=== PATIENT | male | born 1945 | race Caucasian/White ===

== ENCOUNTER 2017-09-28 21:24 | Inpatient (IN) | payer MEDICARE, OTHER ==
[~2017-09-28] VITALS: Ht 180.3 cm; Wt 96.2 kg
[2017-09-28] MEDS ORDERED: DEXTROSE 5%/0.45% SOD CHL 1,000 ML IV ONE (21:30)
[2017-09-28 21:48] LABS: BASOPHILS % 0.1 % (0.0-1.0); EOSINOPHILS # (AUTO) 0.1 (0.0-0.4); EOSINOPHILS % 1.2 % (0.0-6.0); LYMPHOCYTES # (AUTO) 0.5 (1.0-3.2); LYMPHOCYTES % 6.3 % (18.0-39.1); MEAN CORPUSCULAR HEMOGLOBIN 26.6 pg (28-32); MEAN CORPUSCULAR HGB CONC 31.5 g/dL (31-35); MEAN CORPUSCULAR VOLUME 84.4 fL (81-99); MONOCYTES # (AUTO) 0.6 (0.2-0.8); MONOCYTES % 7.4 % (4.4-11.3); NEUTROPHILS # (AUTO) 6.4 (2.1-6.9); NEUTROPHILS % 84.2 % (38.7-80.0); PLATELET COUNT 170 x10e3/uL (140-360); RED BLOOD COUNT 2.37 x10e6/uL (4.3-5.7); RED CELL DISTRIBUTION WIDTH 16.5 % (11.7-14.4)
[2017-09-28 21:55] LABS: HEMOGLOBIN 6.3 g/dL (14.0-18.0)
[2017-09-28] MEDS ORDERED: TRAZODONE HCL50 MG PO (22:03)
[2017-09-28] MEDS ORDERED: LANTUS 3ML100 UNITS/ (22:03)
[2017-09-28] MEDS ORDERED: FERROUS GLUCON324 M1 PO (22:03)
[2017-09-28] MEDS ORDERED: FUROSEMIDE40 MG PO (22:03)
[2017-09-28] MEDS ORDERED: SIMVASTATIN20 MG PO (22:03)
[2017-09-28] MEDS ORDERED: MORPHINE SULFAT30 M2 PO (22:03)
[2017-09-28] MEDS ORDERED: OMEPRAZOLE40 MG PO (22:03)
[2017-09-28] MEDS ORDERED: FINASTERIDE5 MG PO (22:03)
[2017-09-28] MEDS ORDERED: ASPIR 8181 MG PO (22:03)
[2017-09-28] MEDS ORDERED: WARFARIN SODIU2.5 MG PO (22:03)
[2017-09-28] MEDS ORDERED: CARVEDILOL12.5 MG PO (22:03)
[2017-09-28] MEDS ORDERED: NOVOLOG100 UNIT/1 (22:03)
[2017-09-28 22:06] LABS: ALBUMIN 1.6 g/dL (3.5-5.0); ALBUMIN/GLOBULIN RATIO 0.4 (0.8-2.0); CALCIUM 7.5 mg/dL (8.4-10.2); CREATININE, SERUM 4.9 mg/dL (0.72-1.25)
[2017-09-28 22:13] LABS: CREATINE KINASE MB 6.2 ng/mL (0.00-5.00); TROPONIN I 0.073 ng/mL (0-0.300)
[2017-09-28] MEDS ORDERED: SODIUM CHLORIDE 0.9% 250ML 250 ML IV ONE (22:15)
[2017-09-28 22:23] LABS: INR 7.64; PARTIAL THROMBOPLASTIN TIME 129.2 seconds (23.8-35.5); PROTHROMBIN TIME 68.8 seconds (11.9-14.5)
[2017-09-28] MEDS ORDERED: PHYTONADIONE 10 MG/ML AMP SQ ONE (22:30)
[2017-09-28] MEDS: PIPERACILLIN/TAZO 2.25 GM 50 ML IV SCH (22:30)
--- NOTE | 2017-09-28 22:44 | Diagnostic Imaging Report ---
CHEST SINGLE (PORTABLE), 09/28/2017 9:29 PM Technique: CHEST SINGLE (PORTABLE) Comparison: None Clinical history: Shortness of breath Findings: Single portable view Impression: 1. Cardiomediastinal silhouette within normal limits for technique. 2. Mild bibasilar opacity which may be related to atelectasis, aspiration or infection. Consider upright PA and lateral for better evaluation. 3. No effusion or pneumothorax. Signed by: Dr Kiya Mora MD on 09/28/2017 10:41 PM
[2017-09-29] VITALS (74 sets, daily range): BP systolic 78–124; BP diastolic 45–87
[2017-09-29] MEDS ORDERED: SODIUM CHLORIDE 0.9% 250ML 250 ML ONE ×3 (03:40→13:45)
[2017-09-29] MEDS: FUROSEMIDE INJ 10 MG/ML 2 ML VIAL IV PRN ×4 (04:20→18:52)
[2017-09-29] MEDS: MORPHINE SULFATE 4 MG/ML SYR IV PRN ×2 (05:56→14:18)
[2017-09-29] MEDS ORDERED: MORPHINE SULFATE 2 MG/ML SYR ONE ×2 (05:59→14:03)
[2017-09-29] MEDS ORDERED: CLINDAMYCIN 300MG 50 ML IV SCH (06:00)
[2017-09-29] MEDS ORDERED: PIPERACILLIN/TAZO 2.25 GM 50 ML IV SCH (06:00)
--- NOTE | 2017-09-29 07:02 | Diagnostic Imaging Report ---
FOOT LEFT COMPLETE Comparison: None Clinical history: \S\LEFT HEEL UNSTAGEABLE PRESSURE ULCER Findings: See impression Impression: 1. Soft tissue ulcer overlying the posterior calcaneus with cortical irregularity most compatible with osteomyelitis. Consider MRI with and without IV contrast to evaluate extent of disease. 2. Calcified distal Achilles tendon 8 mm above the expected calcaneal insertion, may be chronic tendinosis or injury/rupture. Correlate physical exam. Signed by: Dr Kiya Mora MD on 09/29/2017 6:58 AM
[2017-09-29] MEDS: PIPERACILLIN/TAZO 2.25 GM 50 ML IV SCH ×2 (07:56→14:50)
[2017-09-29] MEDS: MORPHINE SULFATE 30 MG TAB ER PO SCH ×2 (08:39→18:22)
[2017-09-29] MEDS: FERROUS SULFATE 325 MG TAB PO SCH ×2 (08:39→18:22)
[2017-09-29] MEDS: FINASTERIDE 5 MG TAB PO SCH (08:40)
[2017-09-29 08:47] LABS: EOSINOPHILS # (AUTO) 0.1 (0.0-0.4); EOSINOPHILS % 0.8 % (0.0-6.0); LYMPHOCYTES # (AUTO) 0.5 (1.0-3.2); LYMPHOCYTES % 7.1 % (18.0-39.1); MEAN CORPUSCULAR HEMOGLOBIN 27.5 pg (28-32); MEAN CORPUSCULAR HGB CONC 32.7 g/dL (31-35); MONOCYTES # (AUTO) 0.5 (0.2-0.8); MONOCYTES % 6.6 % (4.4-11.3); NEUTROPHILS # (AUTO) 6.5 (2.1-6.9); NEUTROPHILS % 85.4 % (38.7-80.0); PLATELET COUNT 150 x10e3/uL (140-360); RED BLOOD COUNT 2.44 x10e6/uL (4.3-5.7); RED CELL DISTRIBUTION WIDTH 16.4 % (11.7-14.4)
[2017-09-29] MEDS: CLINDAMYCIN 300MG 50 ML IV SCH ×3 (08:53→21:09)
[2017-09-29] MEDS ORDERED: FUROSEMIDE 40 MG TAB PO SCH (09:00)
[2017-09-29] MEDS ORDERED: PANTOPRAZOLE SOD 40 MG TABEC PO SCH (09:00)
[2017-09-29 09:05] LABS: HEMOGLOBIN 6.7 g/dL (14.0-18.0)
[2017-09-29 09:06] LABS: HEMATOCRIT 20.5 % (38.2-49.6)
[2017-09-29 09:16] LABS: INR 3.24
[2017-09-29 09:22] LABS: ANION GAP 17.4 mmol/L (8-16); CALCIUM 7.6 mg/dL (8.4-10.2); CREATININE, SERUM 5.07 mg/dL (0.72-1.25); POTASSIUM 4.4 mmol/L (3.5-5.1)
[2017-09-29 09:35] LABS: PROTHROMBIN TIME 34.8 seconds (11.9-14.5)
[2017-09-29] MEDS ORDERED: SODIUM CHLORIDE 0.9% 250ML 250 ML IV ONE (09:45)
[2017-09-29] MEDS ORDERED: DEXTROSE 5%/0.45% SOD CHL 1,000 ML IV SCH (09:45)
[2017-09-29] MEDS: SODIUM BICARBONATE 8.4% 75 ML in DEXTROSE 5%/0.45% SOD CHL 1,000 ML IV SCH (14:18)
[2017-09-29 15:09] LABS: BILIRUBIN,URINE NEGATIVE (NEGATIVE); CLARITY,URINE CLEAR (CLEAR); COLOR,URINE YELLOW (YELLOW); KETONES,URINE NEGATIVE (NEGATIVE); LEUKOCYTE ESTERASE ,URINE NEGATIVE (NEGATIVE); NITRITE,URINE NEGATIVE (NEGATIVE); PROTEIN,URINE DIPSTICK 1+ (NEGATIVE); URINE UROBILINOGEN 0.2 mg/dL (0.2 - 1)
[2017-09-29 15:24] LABS: BACTERIA,URINE FEW /HPF; CREATININE,URINE RANDOM 50.08 mg/dL (63-166); MUCUS,URINE FEW (RARE); RBC,URINE >50 /HPF (0-5); SODIUM,URINE 33 mmol/L; TOTAL PROTEIN, URINE 50.3 mg/dL (1-14)
--- NOTE | 2017-09-29 16:13 | Consultation ---
DATE OF CONSULTATION: September 29, 2017 NEPHROLOGY CONSULT REASON FOR THE CONSULT: Acute kidney injury. HISTORY OF PRESENT ILLNESS: This is a 72-year-old male who is known to have multiple medical problems including hypertension, AFib, diabetes and chronic kidney disease stage 3 with latest creatinine 1.46 in March of 2017 at the [facility] history of DVT, history of osteomyelitis and gangrene in his foot status post right big and middle toe amputation, and now presenting with left heel osteomyelitis. He has been basically getting lots of antibiotics for treatment of his lower extremity infections and, per his daughter, she thinks that his kidney function got worse afterwards. A few months ago he was given amoxicillin high doses, and then they had to back off given his kidney function declined and, per the [facility] they wanted to start him on p.o. bicarb because his kidney function has been getting worse. He does not have the recent labs for him, but he is presenting because of altered mental status away from his baseline, although he was recently diagnosed with early stage of dementia, and also worsening of his wound. He has been having some melena, black stools, but he has been on p.o. iron tablets. Also, daughter has mentioned that he has not been peeing enough or urinating in the last couple of days. We are consulted given high BUN and creatinine on admission, and also he has supratherapeutic INR. He is on Coumadin, and he has been getting PRBC for severe anemia on admission along with FFP and vitamin K. PAST MEDICAL HISTORY: As mentioned above. PAST SURGICAL HISTORY: Status post laminectomy, status post big and middle toe amputation in the right foot. FAMILY HISTORY: Positive for hypertension, diabetes. SOCIAL HISTORY: No smoking, alcohol or IV drug abuse. He used to live in [place] and all over the [place]. He is living with his daughter, who takes care of him and has been having trouble controlling his blood sugar, which goes up and down and fluctuates. ALLERGIES: NEGATIVE PER RECORDS. VITAL SIGNS: On admission his blood pressure was in the 70s/60s. His heart rate is 75. Temperature 99.3. PHYSICAL EXAMINATION GENERAL APPEARANCE: No acute distress. Awake. He is oriented to person and place. HEAD, EARS, EYES, NECK: No lymphadenopathy. HEART: Regular rate and rhythm. LUNGS: Good bilateral air entry. ABDOMEN: Soft, nontender. EXTREMITIES: +1 ankle edema. LABS: Hemoglobin went up from 6.3 to 6.7. White count is okay. Sodium 131, potassium 4.4. His CO2 is 15. BUN is 106, and creatinine is 5. Glucose 47. Calcium 7.6. ASSESSMENT AND PLAN 1. Acute kidney injury on top of chronic kidney disease stage 3. Last creatinine in March of 2017 was 1.46, and then it has been deteriorating, as per the daughter, given that he was getting a lot of antibiotics for his cellulitis and osteomyelitis. We do not have the recent ones. However, his BUN/creatinine is elevated and I am suspecting ATN in the setting of hypotension, decreased prerenal perfusion, and possible GI bleed. I will keep IV fluids for tonight and monitor his kidney function closely. I will insert a Huang to monitor his strict ins/outs for his urine output given that patient's daughter is concerned that his urine output has been going low despite Lasix. Check fraction excretion of sodium. He most recently had a skin biopsy of a rash in his upper extremities to see if he has vasculitis. I am going to check complement levels and also check serum electrophoresis given severe anemia. 2. Electrolytes. Potassium is 4.4. Monitor closely. Sodium 131. Change to isotonic IV fluids. 3. Metabolic acidosis. Add IV bicarb. 4. Volume status. Monitor urine output. The patient is to get Lasix after blood transfusions given he is getting a lot of blood products. Also check his echo. 5. Left heel osteomyelitis per x-ray. Antibiotics to be adjusted to current GFR. 6. Diabetes. Fluctuating sugar was low this morning. He is on D5 in IV fluids. 7. Supratherapeutic international normalized ratio. Coumadin has been on hold. He is getting FFP and vitamin K. The plan was discussed in detail with the daughter at bedside. The daughter does not like to proceed with dialysis if we can push it as much as we can as a last resort. So, in the meantime I am going to do an IV fluids on him with bicarb drip and monitor his kidney function and electrolytes along with the urine output, but I told the patient's daughter that by tomorrow if his toxins and azotemia do not improve and urine output stays low, then he will probably need to initiate PEDIATRIC ASSISTANT for metabolic clearance and fluid control. Will monitor closely and update the daughter frequently. Daughter agrees on the plan, and we will follow the patient. Thank you so much for the consult. Job#: [id number] EV
--- NOTE | 2017-09-29 17:53 | Diagnostic Imaging Report ---
PROCEDURE:US RETROPERITONEAL ( KIDNEY ). COMPARISON:None. INDICATIONS:ALFREDO TECHNIQUE: Nunes-scale and color sonographic images of the bilateral kidneys and bladder where obtained in transverse and longitudinal planes. FINDINGS: Exam limited as the patient could not follow breathing instructions or assume decubitus position RIGHT KIDNEY: 9.5 cm, cortex 1.6 cm Cysts: None Solid masses: None Stones: None Hydronephrosis: None Echogenicity: Normal LEFT KIDNEY: 9.5 cm, cortex 1.4 cm Cysts: None Solid masses: None Stones: None Hydronephrosis: None Echogenicity: Normal Bladder: Decompressed, with Huang catheter in place CONCLUSION: 1. Normal bilateral renal size and echogenicity. No hydronephrosis, stones, or solid masses. Earnest Mojica M.D. Dictated by: Earnest Mojica M.D. on 09/29/2017 at 18:01 Electronically approved by: Earnest Mojica M.D. on 09/29/2017 at 18:01
[2017-09-29 17:57] LABS: EOSINOPHIL SMEAR,URINE NONE SEEN (NONE SEEN)
[2017-09-29] MEDS: NYSTATIN 15 GM POWDER UD BTL TOP SCH (18:06)
[2017-09-29 19:19] LABS: ANION GAP 16.6 mmol/L (8-16); CALCIUM 7.2 mg/dL (8.4-10.2); CREATININE, SERUM 5.41 mg/dL (0.72-1.25); POTASSIUM 4.6 mmol/L (3.5-5.1)
[2017-09-29] MEDS ORDERED: SODIUM BICARBONATE 8.4% INJ 50 ML SYR IV STA ×2 (20:07→21:08)
[2017-09-29] MEDS: SIMVASTATIN 20 MG TAB PO SCH (21:09)
[2017-09-29] MEDS: TRAZODONE HCL 50 MG TAB PO SCH (21:09)
[2017-09-29] MEDS: ACETAMINOPHEN 325 MG TAB PO PRN (21:10)
--- NOTE | 2017-09-29 23:22 | History and Physical ---
PRIMARY CARE PHYSICIAN: At the [facility] CHIEF COMPLAINT: Unresponsiveness. HISTORY OF PRESENT ILLNESS: A 72-year-old man with a history of diabetes mellitus, type 2, who has had episodes of hypoglycemia in the past. Now, being found at home unresponsive. He received glucose and then, dextrose. By the time he got to the hospital, he was responsive again. He was hypothermic as well, given a bear hugger, found to have acute renal failure, and also, found to have necrotic ulcer on his foot. He was admitted to the ICU for close management and blood transfusion and glucose management. Patient states that he does not recall what happened, but he states that he has been on metformin, glipizide, and insulin. He also states that he has been on Coumadin for atrial fibrillation. He was found to have Coumadin toxicity. He received 2 units FFP and 10 mg of vitamin K. PAST MEDICAL HISTORY: Diabetes mellitus, type 2, atrial fibrillation, Agent [place] exposure, hypertension, iron-deficiency anemia, Lasix dependence, GERD, hyperlipidemia. PAST SURGICAL HISTORY: Back surgery. ALLERGIES: PER ELECTRONIC MEDICAL RECORDS. FAMILY HISTORY/SOCIAL HISTORY: Patient is . He has 3 children. He quit alcohol. No illicits or cigarettes. 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 MEDICATIONS: Per electronic medical record. REVIEW OF SYSTEMS: Denies any dizziness, chest pain or shortness of breath. PHYSICAL EXAM VITAL SIGNS: On admission, temperature 92.6, pulse 55, blood pressure 88/55, and respiratory rate 20, and oxygen 91%. GENERAL: A tired-appearing man resting in bed. HEENT: Anicteric. CARDIOVASCULAR: Normal S1/S2. LUNGS: He has moderate breath sounds. ABDOMEN: Soft, nontender, nondistended. EXTREMITIES: Left heel has unstageable ulcer. He has left foreleg edema 1+. SKIN: Dry. PSYCHIATRIC: Flat affect. NEUROLOGICAL: Alert and oriented times 3. He moves all extremities. LABS: Reviewed. MEDICATIONS: Reviewed. ASSESSMENT AND PLAN: This is a 72-year-old man with 1. Acute metabolic encephalopathy secondary to severe hypoglycemia. Glucose in the 20s. He received dextrose and glucagon now. His sugars have improved. Will get a hemoglobin A1c and lipid panel and monitor closely in the intensive care unit. 2. Severe anemia. He is receiving blood transfusion. 3. Coumadin toxicity. He received 2 units of fresh frozen plasma and vitamin K. Will get a stool occult blood. 4. Acute kidney injury. Nephrology consultation. Blood transfusion and fluids. Will reassess his renal function this morning. 5. Sepsis. He was hypothermic, 92.6 temperature, pulse of 55, his respiratory rate 20, and his blood pressure 88/55. We will bolus patient. Start him on Zosyn and clindamycin. Will get blood cultures and left heel ulcer cultures. 6. Groin fungal infection. Will use nystatin powder. 7. Left heel ulcer. Will get wound culture. We will put him on antibiotic, Zosyn and clindamycin. Will consult podiatry and will get an x-ray of the foot. 8. Ambulatory dysfunction. Will get physical therapy on board. 9. Prophylaxis. Patient has supratherapeutic international normalized ratio. Will recheck international normalized ratio this morning. Will use Protonix 20 daily. 10. Disposition. Monitor closely in the intensive care unit. CRITICAL CARE TIME: More than 35 minutes. Job#: [id number] YOEL
[2017-09-30] VITALS (61 sets, daily range): BP systolic 82–153; BP diastolic 47–132
[2017-09-30] MEDS: FUROSEMIDE INJ 10 MG/ML 2 ML VIAL IV PRN ×2 (00:29→02:29)
[2017-09-30] MEDS: MORPHINE SULFATE 4 MG/ML SYR IV PRN (02:30)
[2017-09-30] MEDS ORDERED: MORPHINE SULFATE 2 MG/ML SYR ONE (02:32)
[2017-09-30] MEDS: SODIUM BICARBONATE 8.4% 75 ML in DEXTROSE 5%/0.45% SOD CHL 1,000 ML IV SCH ×2 (03:47→20:58)
[2017-09-30 06:18] LABS: BASOPHILS % 0.1 % (0.0-1.0); EOSINOPHILS # (AUTO) 0.2 (0.0-0.4); EOSINOPHILS % 2.4 % (0.0-6.0); HEMATOCRIT 26.5 % (38.2-49.6); HEMOGLOBIN 8.9 g/dL (14.0-18.0); LYMPHOCYTES # (AUTO) 0.7 (1.0-3.2); LYMPHOCYTES % 7.9 % (18.0-39.1); MEAN CORPUSCULAR HEMOGLOBIN 28.4 pg (28-32); MEAN CORPUSCULAR HGB CONC 33.6 g/dL (31-35); MEAN CORPUSCULAR VOLUME 84.7 fL (81-99); MONOCYTES % 10.9 % (4.4-11.3); NEUTROPHILS # (AUTO) 7.1 (2.1-6.9); NEUTROPHILS % 77.8 % (38.7-80.0); PLATELET COUNT 175 x10e3/uL (140-360); RED BLOOD COUNT 3.13 x10e6/uL (4.3-5.7); RED CELL DISTRIBUTION WIDTH 15.3 % (11.7-14.4)
[2017-09-30 06:30] LABS: ALBUMIN 1.8 g/dL (3.5-5.0); ALBUMIN/GLOBULIN RATIO 0.4 (0.8-2.0); ANION GAP 17.2 mmol/L (8-16); CALCIUM 7.3 mg/dL (8.4-10.2); CREATININE, SERUM 5.67 mg/dL (0.72-1.25); MAGNESIUM 1.5 MG/DL (1.3-2.1); POTASSIUM 4.2 mmol/L (3.5-5.1)
[2017-09-30] MEDS: CLINDAMYCIN 300MG 50 ML IV SCH ×2 (06:41→14:02)
[2017-09-30] MEDS: PIPERACILLIN/TAZO 2.25 GM 50 ML IV SCH ×3 (06:42→21:26)
[2017-09-30 06:59] LABS: PHOSPHORUS 7.6 MG/DL (2.3-4.7)
[2017-09-30 07:39] LABS: CHOL/HDL RATIO 6.2 (3.9-4.7)
--- NOTE | 2017-09-30 07:59 | Progress Note ---
DATE: September 30, 2017 TIME: 6:15 a.m. OVERNIGHT: The patient had some hypoglycemia, and was started on D5. REVIEW OF SYSTEMS: Denies any dizziness or chest pain. PHYSICAL EXAMINATION VITAL SIGNS: Have been reviewed. GENERAL: A tired-appearing man resting in bed. HEENT: Anicteric. CARDIOVASCULAR: Normal S1 and S2. LUNGS: Moderate breath sounds. ABDOMEN: Soft, nontender and nondistended. EXTREMITIES: He has a left heel unstageable ulcer. He has a dressing in place, clean and dry. He has 1+ edema on the left leg. SKIN: Dry. PSYCHIATRIC: Flat affect. NEUROLOGICAL: Alert and oriented times 3. Moving all extremities. LABS: Reviewed. MEDICATIONS: Reviewed. ASSESSMENT: A 72-year-old man with: 1. Acute metabolic encephalopathy secondary to severe hypoglycemia. 2. Severe anemia. 3. Coumadin toxicity. 4. Acute kidney injury. 5. Sepsis. 6. Groin fungal infection. 7. Left heel ulcer, unstageable. 8. Ambulatory dysfunction. 9. Acute kidney injury in the setting of chronic kidney disease, stage 3. 10. Metabolic acidosis. 11. Osteomyelitis of the left foot. 12. Urinary tract infection. PLAN 1. Continue monitoring glucose levels. Hemoglobin A1c is still pending. Lipid panel still pending. 2. The patient still has metabolic acidosis. Continue bicarb per nephrology. 3. Continue fluids. Follow up renal function. Ultrasound of the kidney showed no hydronephrosis, stones or mass. 4. Osteomyelitis of the left foot as seen on x-ray. Will obtain an MRI for further evaluation. 5. Status post blood transfusion. Will follow up counts. 6. Coumadin toxicity. He received 2 units of FFP. INR yesterday was initially 7.6, but now improved to 3.2. Today, INR is pending. 7. Continue treatment of sepsis with antibiotics and fluids. 8. Continue nystatin powder. 9. Physical therapy already consulted. 10. Blood cultures negative to date. Unsure if we have a wound culture of the left foot. 11. Continue treatment of urinary tract infection. 12. Continue Zosyn and clindamycin. Follow up cultures. 13. Critical care time more than 35 minutes. Job#: [id number] HI
[2017-09-30] MEDS: MORPHINE SULFATE 30 MG TAB ER PO SCH (09:00)
[2017-09-30] MEDS ORDERED: PHYTONADIONE 10 MG/ML AMP SC ONE (09:15)
[2017-09-30] MEDS: FERROUS SULFATE 325 MG TAB PO SCH ×2 (09:29→17:00)
[2017-09-30] MEDS: FINASTERIDE 5 MG TAB PO SCH (09:29)
[2017-09-30] MEDS: PANTOPRAZOLE SOD 40 MG TABEC PO SCH (09:29)
[2017-09-30] MEDS: NYSTATIN 15 GM POWDER UD BTL TOP SCH ×2 (09:29→18:34)
[2017-09-30] MEDS ORDERED: LIDOCAINE HCL 1% LOCAL INJ 20 ML VIAL ONE (10:24)
[2017-09-30] MEDS: MORPHINE SULFATE 2 MG/ML SYR IV PRN ×3 (10:40→20:18)
[2017-09-30 11:11] LABS: INR 3.66
[2017-09-30 11:13] LABS: PROTHROMBIN TIME 42.8 seconds (11.9-14.5)
--- NOTE | 2017-09-30 12:18 | Diagnostic Imaging Report ---
PROCEDURE:NON-TUNNELLED CVC CATH PLACMNT COMPARISON:Chest x-ray 09/28/2017. Preprocedure diagnosis: Acute kidney injury Post procedure diagnosis: Acute kidney injury Estimated blood loss: Minimal Blood products administered: None Sedation/anesthesia: None Specimens: None Implants/grafts: 13 Bulgarian, 15 cm triple-lumen high flow central venous catheter Clinician at completion of procedure: Stable Disposition: Return to ICU Total fluoroscopy time: 0.4 minutes Air Kerma: 14.6 mGy. Complications: No immediate PROCEDURE: Informed consent for the procedure was obtained from the patient's next of kin and documented in the medical record after discussion of risks and benefits. The patient was placed in the supine position on the fluoroscopic table. Preliminary sonographic evaluation of the right cervical region confirmed patency of the internal jugular vein, evidenced by compressibility. The right cervical region was then prepped and draped in the standard sterile fashion. 1% lidocaine was infiltrated into the skin and subcutaneous tissues for local anesthesia. Then under continuous sonographic guidance, an 18 gauge single wall needle was used to access the right internal jugular vein. A permanent sonographic image was stored in the medical record. A 0.035 inch wire was advanced centrally into the inferior vena cava under fluoroscopic guidance. The needle was removed and the tract was serially dilated. Then a 13 Bulgarian, 15 cm triple-lumen high flow central venous catheter was advanced over the wire to full depth. The wire was removed and the catheter tip was positioned in the low superior vena cava. Each lumen showed adequate bidirectional flow and was flushed with sterile saline. The catheter was secured to the skin with monofilament nylon suture and a sterile dressing was applied. The patient tolerated the procedure well without immediate complication. Findings: Patent right internal jugular vein. CONCLUSION: Successful placement of a 13 Bulgarian, 15 cm high flow central venous catheter via a right internal jugular approach under sonographic and fluoroscopic guidance. Dictated by: Sonido Arriaza M.D. on 09/30/2017 at 12:27 Electronically approved by: Sonido Arriaza M.D. on 09/30/2017 at 12:27
--- NOTE | 2017-09-30 12:19 | Diagnostic Imaging Report ---
PROCEDURE:ULTRASOUND GUIDANCE FOR VASCULAR ACCESS COMPARISON:None. INDICATIONS:Trialysis Catheter Placement FINDINGS:Right internal jugular vein is noted to be patent. Ultrasound guidance was utilized for access for central line placement. CONCLUSION:Patent right internal jugular vein. Successful ultrasound guidance for central line placement. Dictated by: Sonido Arriaza M.D. on 09/30/2017 at 12:27 Electronically approved by: Sonido Arriaza M.D. on 09/30/2017 at 12:27
--- NOTE | 2017-09-30 13:11 | Diagnostic Imaging Report ---
MRI of the left foot without contrast. History: Foot pain. Anemia. Heel infection. Coagulopathy. Diabetes.. Technique: Multiplanar multisequence MRI of the left foot without contrast Comparison: Radiographs 09/29/2017 Findings: There is skin ulceration, skin thickening and skin blistering at the level of the posterior calcaneus. There is abnormal adjacent soft tissue edema. There is abnormal bone marrow edema in the calcaneus most pronounced posteriorly and inferiorly worrisome for osteomyelitis. There is a full-thickness distal Achilles tendon tear with retraction of the more proximal fibers by approximately 4.1 cm. This is best seen on sagittal series 6 image 14. There is adjacent soft tissue edema. Scattered degenerative changes are seen about the remaining visualized osseous structures. The plantar fascial tissues are intact. There is a tibiotalar joint effusion and synovitis. Impression: Skin ulceration, skin thickening, skin blistering and findings worrisome for osteomyelitis in the posterior calcaneus. Full-thickness distal Achilles tendon tear with retraction. Signed by: Dr. Kwame Mcclendon M.D. on 09/30/2017 1:08 PM
[2017-09-30] MEDS ORDERED: DEXTROSE 50% SYRINGE 50 ML IV ONE ×2 (14:41→15:00)
[2017-09-30] MEDS ORDERED: MANNITOL 25% 12.5GM/50ML 100 ML ONE (14:47)
[2017-09-30] MEDS ORDERED: HEPARIN SOD (PORCINE) 1000 UNIT/ML SDV ONE (14:48)
[2017-09-30] MEDS ORDERED: SODIUM CHLORIDE 0.9% 1000ML 2,000 ML ONE (14:49)
[2017-09-30] MEDS ORDERED: VANCOMYCIN 1GM/NS 250 ML 250 ML IV ONE (15:45)
--- NOTE | 2017-09-30 16:09 | Consultation ---
DATE OF CONSULTATION: September 29, 2017 REASON FOR CONSULTATION: Necrotic heel ulcer. HISTORY OF PRESENT ILLNESS: Mr. Lucas is a pleasant 72-year-old male who was admitted secondary to unresponsiveness, more than likely secondary to hypoglycemia. He was given glucose and subsequently dextrose and was found to be arousable and again responsive. However, still hyperthermic. He was found to have acute renal failure with a large ulceration to the left heel and secondary to the same he was admitted. He is currently in the ICU. PAST MEDICAL HISTORY: Diabetes, atrial fibrillation, hypertension, iron deficiency anemia, GERD, hyperlipidemia, peripheral arterial disease. PAST SURGICAL HISTORY: 1. Back. 2. Partial foot amputation, right lower extremity. SOCIAL HISTORY: Retired. No history of illicit drug use or tobacco use. Occasional alcohol use in the past. MEDICATIONS: Please see MAR for current medication list. ALLERGIES: NEGATIVE PER THE MEDICAL RECORD. REVIEW OF SYSTEMS: Eleven point review of systems at this point negative. Found to be arousable. Denies any nausea, vomiting, fever, chills or , palpitations, hematuria, constipation or diarrhea. PHYSICAL EXAMINATION VITAL SIGNS: Temperature 92.6, pulse 55, blood pressure 88/55, respiratory rate 20. GENERAL: He is in no apparent distress. HEENT: Anicteric, normocephalic. RESPIRATORY: Symmetrical expansion. ABDOMEN: Soft and nontender. Nondistended. PSYCHIATRIC: Flat affect. EXTREMITIES: Large ulceration encompassing almost the entire left heel with malodor and significant amount of tissue necrosis. LABORATORY DATA: Found to be anemic at 6.7, 20.5 hemoglobin and hematocrit respectively. No evidence of leukocytosis, although does seem to have a left shift, neutrophils. ASSESSMENT 1. Peripheral arterial disease with large heel ulceration with gangrene malodor. 2. Possible osteomyelitis. PLAN: Recommend noninvasive arterial studies to further assess his status. Educated on the poor prognosis. At this point, considering partial calcanectomy versus [id number] amputation and the interim local wound care to consist of Betadine with a dry dressings and heel off loading. I would like to thank Dr. Dustin Briceño for allowing me to participate in the care of this patient. Job#: [id number]
[2017-09-30] MEDS ORDERED: DIGOXIN INJ 0.25 MG/ML 2 ML AMP ONE (16:23)
[2017-09-30] MEDS ORDERED: METOPROLOL TARTRATE INJ 1 MG/ML VIAL ONE (16:23)
[2017-09-30] MEDS ORDERED: METOPROLOL TARTRATE INJ 1 MG/ML VIAL IV ONE ×2 (16:30→21:15)
[2017-09-30] MEDS ORDERED: DIGOXIN INJ 0.25 MG/ML 2 ML AMP IV ONE (16:30)
[2017-09-30] MEDS ORDERED: DIGOXIN INJ 0.25 MG/ML 2 ML AMP IV NR (18:30)
[2017-09-30] MEDS ORDERED: ACETAMINOPHEN 1000 MG/100 ML IV PRN (19:00)
[2017-09-30] MEDS: METOPROLOL TARTRATE INJ 1 MG/ML VIAL IV PRN (19:02)
[2017-09-30 20:06] LABS: INR 2.75; PROTHROMBIN TIME 30.6 seconds (11.9-14.5)
[2017-09-30 20:07] LABS: PARTIAL THROMBOPLASTIN TIME 71.1 seconds (23.8-35.5)
[2017-09-30 20:12] LABS: ANION GAP 16.8 mmol/L (8-16); CALCIUM 7.4 mg/dL (8.4-10.2); CREATININE, SERUM 4.69 mg/dL (0.72-1.25); POTASSIUM 3.8 mmol/L (3.5-5.1)
[2017-09-30 21:25] LABS: BASOPHILS % 0.2 % (0.0-1.0); EOSINOPHILS # (AUTO) 0.1 (0.0-0.4); EOSINOPHILS % 0.4 % (0.0-6.0); HEMATOCRIT 27.5 % (38.2-49.6); HEMOGLOBIN 9.3 g/dL (14.0-18.0); LYMPHOCYTES # (AUTO) 0.5 (1.0-3.2); LYMPHOCYTES % 3.2 % (18.0-39.1); MEAN CORPUSCULAR HEMOGLOBIN 28.3 pg (28-32); MEAN CORPUSCULAR HGB CONC 33.8 g/dL (31-35); MEAN CORPUSCULAR VOLUME 83.6 fL (81-99); MONOCYTES % 6.3 % (4.4-11.3); NEUTROPHILS # (AUTO) 14.3 (2.1-6.9); PLATELET COUNT 199 x10e3/uL (140-360); RED BLOOD COUNT 3.29 x10e6/uL (4.3-5.7); RED CELL DISTRIBUTION WIDTH 15.5 % (11.7-14.4)
[2017-09-30] MEDS: TRAZODONE HCL 50 MG TAB PO SCH (21:26)
[2017-09-30] MEDS: SIMVASTATIN 20 MG TAB PO SCH (21:26)
[2017-10-01] VITALS (62 sets, daily range): BP systolic 82–170; BP diastolic 47–122
[2017-10-01] MEDS: METOPROLOL TARTRATE INJ 1 MG/ML VIAL IV SCH ×4 (00:54→17:52)
[2017-10-01] MEDS: PIPERACILLIN/TAZO 2.25 GM 50 ML IV SCH ×3 (05:34→20:57)
[2017-10-01] MEDS: ACETAMINOPHEN 325 MG TAB PO PRN ×2 (05:35→20:58)
[2017-10-01 06:22] LABS: BASOPHILS % 0.2 % (0.0-1.0); EOSINOPHILS # (AUTO) 0.2 (0.0-0.4); EOSINOPHILS % 1.5 % (0.0-6.0); HEMATOCRIT 26.4 % (38.2-49.6); HEMOGLOBIN 8.8 g/dL (14.0-18.0); LYMPHOCYTES # (AUTO) 0.8 (1.0-3.2); MEAN CORPUSCULAR HEMOGLOBIN 28.3 pg (28-32); MEAN CORPUSCULAR HGB CONC 33.3 g/dL (31-35); MEAN CORPUSCULAR VOLUME 84.9 fL (81-99); MONOCYTES # (AUTO) 0.8 (0.2-0.8); MONOCYTES % 7.1 % (4.4-11.3); NEUTROPHILS # (AUTO) 9.7 (2.1-6.9); PLATELET COUNT 171 x10e3/uL (140-360); RED BLOOD COUNT 3.11 x10e6/uL (4.3-5.7); RED CELL DISTRIBUTION WIDTH 15.7 % (11.7-14.4)
[2017-10-01 06:39] LABS: INR 2.47; PROTHROMBIN TIME 28.1 seconds (11.9-14.5)
[2017-10-01 06:58] LABS: ANION GAP 15.8 mmol/L (8-16); CALCIUM 7.6 mg/dL (8.4-10.2); CREATININE, SERUM 4.96 mg/dL (0.72-1.25); MAGNESIUM 1.7 MG/DL (1.3-2.1); POTASSIUM 3.8 mmol/L (3.5-5.1); VANCOMYCIN,RANDOM 12.3 ug/mL
[2017-10-01 07:15] LABS: PHOSPHORUS 6.1 MG/DL (2.3-4.7)
[2017-10-01] MEDS ORDERED: VANCOMYCIN 1GM/NS 250 ML 250 ML IV ONE (08:15)
[2017-10-01] MEDS: MORPHINE SULFATE 15MG TAB CR PO SCH ×2 (08:16→20:57)
[2017-10-01] MEDS: FERROUS SULFATE 325 MG TAB PO SCH ×2 (08:16→17:43)
[2017-10-01] MEDS: PANTOPRAZOLE SOD 40 MG TABEC PO SCH (08:17)
[2017-10-01] MEDS: FINASTERIDE 5 MG TAB PO SCH (08:17)
--- NOTE | 2017-10-01 09:51 | Progress Note ---
DATE: October 01, 2017 The patient is alert. His sensorium seems more clear. He is still somewhat confused. He is otherwise in no acute distress. He is not coughing. No dyspnea at rest. No report of vomiting or diarrhea. No adverse or overt medication reaction reported. Temperatures in the past 24 hours ranged from 97.8 to 101 degrees Fahrenheit. His most recent temperature is 98.2. He is hemodynamically stable without vasopressors. There is a petechial rash involving his upper extremities. There is no gross pallor and no obvious icterus. His neck is supple. The chest is symmetric. Breath sounds are coarse in the lung cheng. Heart sounds are regular. There is no new murmur. The abdomen is soft with active bowel sounds. There is no acute erythema of his extremities otherwise. There is a gangrenous wound at the left heel. It is unstageable. His white count today is 11.7, down from 16.0. Hemoglobin 8.8 and platelet count 171. His serum creatinine is 4.9. He was dialyzed yesterday. His vancomycin random level is 12.3. Blood cultures from September 29 are reported negative. We had suggested getting a urine culture yesterday. The report is not available. An MRI of his left foot reports findings worrisome for osteomyelitis at the left heel. IMPRESSION: He is on treatment for severe sepsis with multiorgan dysfunction, including altered mental status and renal failure. There is a gangrenous decubitus wound at the left heel. There may be aspiration pneumonia in the patient who was unresponsive with altered mental status. There is a petechial rash of his upper extremities. The etiology is unclear. The family reports that he has had this rash for over a month. He has been seen by specialists. He has had treatment with prednisone without complete resolution. He has renal failure. He was dialyzed yesterday. I suggest redose vancomycin today. Continue to follow up on his cultures. Continue broad-spectrum antibiotic coverage. Monitor temperature, CBC and renal function. He needs vascular, podiatry and surgery followups. I have discussed the patient with the ICU staff. I will discuss the patient further with Dr. Chan. Total care time 35 minutes. Job#: [id number]
--- NOTE | 2017-10-01 12:34 | Consultation ---
DATE OF CONSULTATION: September 30, 2017 INFECTIOUS DISEASE CONSULTATION REASON FOR CONSULTATION: Evaluate and assist in treatment of the patient with sepsis, gangrenous wound at the left heel and a skin rash. Information is gathered from the current medical record. The patient is confused. He is a 72-year-old male with diabetes mellitus, hypertension, probably peripheral arterial disease, atrial fibrillation, exposure to Agent [place], iron deficiency anemia, gastroesophageal reflux disease, hyperlipidemia. He has had back surgery in the past. He has had amputation of his right 1st and 2nd toes in the past. He was admitted to the hospital on September 29, 2017, after presenting from home with reports that he was found unresponsive. He became responsive after glucose and dextrose were administered. He was also found hypothermic. At presentation, it was reported he was found in acute renal failure. At the time of this evaluation, he is having his 1st dialysis. ID consult is called to evaluate and assist with management after he was found with a gangrenous wound at the left heel and petechial rash involving his upper extremities. MEDICAL HISTORY: As reported above. There is a report of Coumadin toxicity, which he was receiving for his atrial fibrillation. There is no report of liver disease, myocardial infarction or CVA. The patient is currently confused. There is no report of dementia. SOCIAL HISTORY: No report of recent tobacco, alcohol or other forms of recreational drug use. FAMILY HISTORY: Positive for diabetes and hypertension. ALLERGIES: HE HAS NO ALLERGIES LISTED. At the time of this evaluation, he is on treatment with clindamycin and Zosyn. The rest of his medications are per medication administration report. REVIEW OF SYSTEMS: The patient is awake. He appears somewhat delirious and confused. He is not coughing. No dyspnea at rest. No report of vomiting. No report of diarrhea. No report of hematuria. He has a skin rash. PHYSICAL EXAMINATION GENERAL: He is an adult male. He appears ill, confused and otherwise in no acute distress. VITALS: His temperature at presentation was 92.6. He has had a temperature up to 100.8 degrees Fahrenheit. His most recent temperature 98.7. His blood pressure currently 153/63. He is not on vasopressors. HEENT: Shows no gross pallor. No obvious icterus. No oropharyngeal lesions. NECK: Supple. CHEST: Symmetric. Breath sounds are coarse in the lung cheng with mild wheezing. HEART: Sounds are regular without any significant murmur. ABDOMEN: Soft and nontender with active bowel sounds. EXTREMITIES: There are ischemic changes of both lower extremities. He has had previous amputation of his right 1st and 2nd toes. The stumps are healed. There is gangrenous unstageable decubitus wound at the left heel. There is petechia rash involving his upper extremities. I do not see any rash on his trunk or his thighs or lower extremities. His white count on September 28, 2017, was 7.5 and currently 9.1, hemoglobin 6.3 on September 28, 2017, and currently 8.9, hematocrit 26.5, and platelet count 175,000. Differential on his white count is 77% neutrophils on an automated differential. His serum creatinine 4.9 at presentation and 5.6 currently. Liver function tests are slightly abnormal with AST 36-38, ALT normal. Blood cultures drawn on September 29, 2017, are reported negative at 24 hours. Chest x-ray from September 28, 2017, showed mild bibasilar opacity, which may be related to atelectasis, aspiration or infection. There is no effusion or pneumothorax. Arterial Doppler report is not available. An MRI of the left foot is reported with skin ulceration, thickening, blistering with findings worrisome for osteomyelitis involving the posterior calcaneous. IMPRESSION: This 72-year-old male presents with signs and symptoms consistent with sepsis. He has gangrenous unstageable decubitus wound at the left heel. He has petechial rash involving the upper extremities of unclear etiology. His urinalysis showed a clear urine with negative nitrite, negative esterase, 6-10 wbcs with a few bacteria. The most likely source of sepsis in this patient is his left lower extremity infection. Aspiration pneumonia is a possibility in the patient who was unresponsive. He is in renal failure, and is being dialyzed. I suggest we follow up on his blood cultures. If he is making urine, urine culture should be sent. Continue treatment with Zosyn. Discontinue clindamycin and add vancomycin to his treatment regimen. Monitor temperature, CBC and renal function. He needs vascular and surgery evaluation of his left lower extremity. Continue local wound care. Implement aspiration precautions. I have discussed the findings and treatment with the ICU staff. I have discussed the patient with the family at the bedside, as well as with the primary physician, who I thank for the consult, and opportunity to participate in the patient's care. Total care time 40 minutes. Job#: [id number] RI
--- NOTE | 2017-10-01 12:35 | Consultation ---
DATE OF CONSULTATION: September 30, 2017 CARDIOLOGY CONSULTATION REQUESTING PHYSICIAN: Dr. Navarro Chan. REASON FOR CONSULTATION: Atrial fibrillation with rapid ventricular response. HISTORY OF PRESENT ILLNESS: This is a 72-year-old male with a history of diabetes mellitus, hypertension, hyperlipidemia, paroxysmal atrial fibrillation and dementia who was brought to the ER due to altered mental status. The patient's family indicates that he has been different from his normal self with poor p.o. intake for the last 2 days. He was less responsive the day of admission, 911 was called and CBG at that time by EMS was 29. He was therefore brought into the ER. He was found to have acute renal failure, supratherapeutic INR, and infected left foot ulcer. The patient's indicates the patient has no history of chronic illness, cardiac disease other than atrial fibrillation. 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 They report that the wound was worse this past week prior to presentation. The patient had no cardiac complaints per the family. No history could be obtained from the patient due to altered mental status. REVIEW OF SYSTEMS: Unable to obtain secondary to altered mental status. PAST MEDICAL HISTORY 1. Diabetes mellitus type 2. 2. Paroxysmal atrial fibrillation. 3. Hypertension. 4. Hyperlipidemia. PAST SURGICAL HISTORY 1. Laminectomy. 2. Neck surgery times 2. 3. Toe amputation on the right. 4. Hemorrhoidectomy. ALLERGIES: PER EMR. MEDICATIONS: Please see medication reconciliation. SOCIAL HISTORY: Smoked 1-1/2 to 2 packs a day since the age of 12 until he quit 14 years ago. He is a recovering alcoholic. FAMILY HISTORY: Noncontributory. PHYSICAL EXAMINATION VITAL SIGNS: Temperature 101 degrees, pulse 143, respiratory rate 20, blood pressure 146/69, and oxygen saturation 95% on 5 L nasal cannula. GENERAL: Well-developed, well-nourished man in no acute distress. HEENT: Normocephalic, atraumatic. Pupils equal. No scleral icterus. NECK: Supple. No thyromegaly or cervical lymphadenopathy. No carotid bruits. LUNGS: Clear to auscultation bilaterally. No wheezes or crackles. CARDIOVASCULAR: Tachycardic. Irregularly irregular. No murmur. Normal S1 and S2. ABDOMEN: Soft and nontender. EXTREMITIES: No edema on the right, 2+ pitting edema on the left. NEURO: Nonfocal exam. LABS: WBC 9.15, hemoglobin 8.9, hematocrit 26.5, platelets 175,000. Sodium 135, potassium 4.2, chloride 104, CO2 of 18, BUN 102, creatinine 5.67. Telemetry: Initial EKG demonstrated sinus rhythm with normal ECG. Repeat EKG demonstrated atrial fibrillation with rapid ventricular response, nonspecific ST and T changes. Bilateral lower extremity arterial Doppler demonstrates elevated velocities in the proximal right SFA suggestive of less than 50% focal stenosis, monophasic waveform of the right posterior tibial artery are suggestive of popliteal peripheral arterial disease, elevated velocities in the distal left SFA suggest greater than 75% stenosis, proximal left OUTSOLE CASER appears occluded with distal reconstitution. Foot MRI: Skin ulceration, skin thickening, skin blistering and findings worrisome for osteomyelitis in the posterior calcaneus. IMPRESSIONS 1. Atrial fibrillation with rapid ventricular response. 2. Large heel ulceration with osteomyelitis. 3. Peripheral arterial disease suggested by noninvasive Doppler evaluation. 4. Acute renal failure. 5. Diabetes mellitus. 6. Hypertension. 7. Hyperlipidemia. 8. Dementia. 9. Supratherapeutic international normalized ratio. 10. Anemia. The patient's INR was supratherapeutic on admission and he has a history of paroxysmal atrial fibrillation. One time dose of digoxin was already given. We will continue metoprolol scheduled and p.r.n. including additional dose of digoxin. If he remains poorly rate controlled, we will start him on amiodarone drip. Given the patient's renal failure, he is not a candidate for peripheral angiogram. Defer management of patient's left heel osteomyelitis to podiatry. Will obtain echocardiogram and check TSH. Thank you for this consult. We will continue to follow. Job#: [id number]
--- NOTE | 2017-10-01 12:36 | Progress Note ---
DATE: October 01, 2017 TIME: 6 a.m. OVERNIGHT: Patient had first session of dialysis. Also, he developed AFib with RVR and treated with medication regimen. REVIEW OF SYSTEMS: Denies any chest pain. PHYSICAL EXAMINATION VITAL SIGNS: Have been reviewed. Heart rate is now 137. GENERAL: A tired-appearing man resting in bed. HEENT: Anicteric. He has a mask in place. CARDIOVASCULAR: Normal S1 and S2. LUNGS: Reduced breath sounds. ABDOMEN: Soft, nontender and nondistended. EXTREMITIES: He has a left heel ulcer, unstageable. He has trace edema bilaterally. SKIN: Dry. PSYCHIATRIC: Flat affect. NEUROLOGICAL: Alert and oriented times 3. Moves all extremities. LABS: Reviewed. MEDICATIONS: Reviewed. ASSESSMENT: A 72-year-old man with: 1. Acute metabolic encephalopathy secondary to severe hypoglycemia. 2. Severe anemia. 3. Coumadin toxicity. 4. Acute kidney injury. 5. Sepsis. 6. Stool occult positive blood. 7. Atrial fibrillation with rapid ventricular response. 8. Groin fungal infection. 9. Left heel ulcers, unstageable. 10. Ambulatory dysfunction. 11. Acute kidney injury in the setting of chronic kidney disease, stage 3. 12. Metabolic acidosis. 13. Osteomyelitis of the left foot. 14. Urinary tract infection. 15. Osteomyelitis of the left heel. PLAN 1. Received first session of dialysis yesterday. Plan for second today. 2. Continue IV metoprolol. He received IV digoxin. Heart rate is in the 120-130. Will treat with p.r.n. medications. Defer to cardiology. 3. Continue IV Zosyn. 4. Follow up vascular studies of the left leg. 5. Check H and H today. His hemoglobin was 9.3 yesterday. He is status post blood transfusions. Will follow up. Stool occult blood was negative. Will consult gastroenterology services as he will need anticoagulation in the setting of atrial fibrillation. 6. INR yesterday was 2.75. 7. New leukocytosis yesterday. Will follow up labs this morning. 8. All cultures remain negative. 9. Osteomyelitis of the left posterior calcaneous. 10. Critical care time more than 35 minutes. Job#: [id number] CO
[2017-10-01] MEDS: MORPHINE SULFATE 2 MG/ML SYR IV PRN (14:00)
[2017-10-01] MEDS: NYSTATIN 15 GM POWDER UD BTL TOP SCH ×2 (14:18→17:43)
[2017-10-01] MEDS ORDERED: DEXTROSE 50% SYRINGE 50 ML IV PRN (17:45)
[2017-10-01] MEDS ORDERED: INSULIN REGULAR, HUMAN 100 UNIT/1 ML 3ML VIAL SQ SCH ×2 (17:45→21:00)
[2017-10-01] MEDS: HYDROMORPHONE 1MG/1ML INJ IV PRN ×2 (17:51→20:57)
[2017-10-01] MEDS ORDERED: HEPARIN SOD (PORCINE) 1000 UNIT/ML SDV ONE (18:20)
--- NOTE | 2017-10-01 20:14 | Progress Note ---
DATE: October 01, 2017 CARDIOLOGY PROGRESS NOTE SUBJECTIVE: The patient denies chest pain or shortness of breath. OBJECTIVE VITAL SIGNS: Temperature 98.2 degrees, pulse 122, blood pressure 145/74, oxygen saturation 97% on 4 liters nasal cannula. GENERAL: Awake, alert, in no acute distress. LUNGS: Clear to auscultation bilaterally. No wheezes or crackles. CARDIOVASCULAR: Tachycardic. Irregularly irregular. No murmur. Normal S1 and S2. ABDOMEN: Soft and nontender. EXTREMITIES: There is 2+ pitting edema on the left. NEURO: Nonfocal exam. CARDIAC MEDICATIONS: 1. Metoprolol tartrate 5 mg IV q.6 h. 2. Simvastatin 20 mg p.o. nightly. 3. Metoprolol tartrate 5 mg IV q.6 h. p.r.n. LABORATORY DATA: WBC 11.7, hemoglobin 8.8, hematocrit 26.4, platelets 171,000, sodium 137, potassium 3.8, chloride 103, CO2 of 22, BUN 75, creatinine 4.96. INR 2.47. TELEMETRY: Normal sinus rhythm and atrial fibrillation with rapid ventricular response. IMPRESSION 1. Atrial fibrillation with rapid ventricular response, paroxysmal. 2. Large heel ulceration with osteomyelitis. 3. Peripheral arterial disease suggested by noninvasive Doppler evaluation. 4. Acute renal failure, now initiated on hemodialysis. 5. Diabetes mellitus. 6. Hypertension. 7. Hyperlipidemia. 8. Dementia. 9. Supratherapeutic international normalized ratio. 10. Anemia, requiring blood transfusion. RECOMMENDATIONS: Continue metoprolol for rate control, titrate up as blood pressure permits. If the patient continues to be tachycardiac, amiodarone can be considered given the patient's INR was supratherapeutic on admission. The patient's peripheral angiogram suggests greater than 75% stenosis in the distal left SFA. However, his acute renal failure limits our ability to proceed with peripheral angiogram. Note that the patient has been started on dialysis. If nephrology feels the patient is end-stage renal disease, we may proceed at that time. Otherwise, contrast administration will likely place the patient onto dialysis permanently. Management of left heel osteomyelitis per podiatry. Antibiotics per infectious disease. The patient's stool occult blood was positive. Hold warfarin pending GI evaluation. Thank you for this consult. We will continue to follow. Job#: [id number] GH
[2017-10-01] MEDS: TRAZODONE HCL 50 MG TAB PO SCH (20:57)
[2017-10-01] MEDS: VENLAFAXINE HCL 37.5MG XR CAP PO SCH (20:57)
[2017-10-01] MEDS: SIMVASTATIN 20 MG TAB PO SCH (20:57)
[2017-10-01] MEDS: INSULIN REGULAR, HUMAN 100 UNIT/1 ML 3ML VIAL SQ SCH (22:08)
[2017-10-02] VITALS (45 sets, daily range): BP systolic 86–189; BP diastolic 47–109
[2017-10-02] MEDS: METOPROLOL TARTRATE INJ 1 MG/ML VIAL IV SCH ×5 (00:43→23:11)
[2017-10-02] MEDS: HYDROMORPHONE 1MG/1ML INJ IV PRN ×7 (00:43→22:34)
[2017-10-02] MEDS: PIPERACILLIN/TAZO 2.25 GM 50 ML IV SCH ×3 (05:26→22:33)
[2017-10-02 06:06] LABS: HEMOGLOBIN 8.9 g/dL (14.0-18.0); MEAN CORPUSCULAR HEMOGLOBIN 28.4 pg (28-32); MEAN CORPUSCULAR VOLUME 86.3 fL (81-99); PLATELET COUNT 198 x10e3/uL (140-360); RED BLOOD COUNT 3.13 x10e6/uL (4.3-5.7); RED CELL DISTRIBUTION WIDTH 15.9 % (11.7-14.4)
[2017-10-02] MEDS: METOPROLOL TARTRATE INJ 1 MG/ML VIAL IV PRN (06:30)
[2017-10-02 06:34] LABS: ANION GAP 14.9 mmol/L (8-16); CALCIUM 7.8 mg/dL (8.4-10.2); CREATININE, SERUM 4.46 mg/dL (0.72-1.25); MAGNESIUM 1.6 MG/DL (1.3-2.1); POTASSIUM 3.9 mmol/L (3.5-5.1); VANCOMYCIN,RANDOM 16.5 ug/mL
[2017-10-02] MEDS: INSULIN REGULAR, HUMAN 100 UNIT/1 ML 3ML VIAL SQ SCH ×4 (07:30→22:48)
[2017-10-02] MEDS: FINASTERIDE 5 MG TAB PO SCH (09:37)
[2017-10-02] MEDS: VENLAFAXINE HCL 37.5MG XR CAP PO SCH ×2 (09:37→22:33)
[2017-10-02] MEDS: NYSTATIN 15 GM POWDER UD BTL TOP SCH ×3 (09:37→20:00)
[2017-10-02] MEDS: MORPHINE SULFATE 15MG TAB CR PO SCH ×2 (09:37→22:33)
[2017-10-02] MEDS: FERROUS SULFATE 325 MG TAB PO SCH ×2 (09:37→18:02)
[2017-10-02] MEDS: PANTOPRAZOLE SOD 40 MG TABEC PO SCH (09:38)
--- NOTE | 2017-10-02 11:37 | Progress Note ---
DATE: October 02, 2017 The patient is alert. His sensorium is much clearer. He is responsive. He is in no acute distress. He coughs occasionally. No dyspnea at rest. No nausea, vomiting or diarrhea. No pain complaints. No overt medication reaction reported. OBJECTIVE VITALS: In the past 24 hours, maximum temperature was up to 100 degrees Fahrenheit. His most recent temperature is 98.2. He is doing well hemodynamically. HEAD AND NECK: There is no gross pallor and no obvious icterus. No oropharyngeal lesions. His neck is supple. CHEST: The chest is symmetric. The lungs sound fairly clear. Heart sounds are regular. There is no new murmur. ABDOMEN: The abdomen is soft. Bowel sounds are present. EXTREMITIES: No acute erythema of the extremities otherwise. There is a gangrenous wound at the left heel. The petechial rash of his upper extremities seems to be involuting. LABS: His white count is 12.6. Differential is not available. Hemoglobin 8.9, platelet count 198. Serum creatinine is 4.4. Vancomycin random level is 16.5. Blood cultures are negative. No urine culture is available. No wound culture is available. IMPRESSION: He is recovering from severe sepsis. There is a gangrenous wound at the left heel. He may have aspiration pneumonia. Clinically, he is improving. He is in renal failure. He has a petechial rash of his upper extremities of unclear etiology. It appears to be resolving. I suggest to continue current management. Monitor temperatures, CBC and renal function. Continue supportive care. He needs vascular and podiatry surgery evaluation and followup. Job#: [id number]
[2017-10-02] MEDS ORDERED: VANCOMYCIN 1GM/NS 250 ML 250 ML IV ONE (12:00)
--- NOTE | 2017-10-02 13:48 | Progress Note ---
DATE: October 02, 2017 CARDIOLOGY PROGRESS NOTE SUBJECTIVE: Feeling somewhat better. Shortness of breath improving. No chest pain. No other complaints. OBJECTIVE VITALS: Telemetry: Currently normal sinus rhythm. Temperature 97.7, heart rate 72, respiratory rate 16, blood pressure 125/59, O2 sat 96% on face mask. GENERAL: No acute distress. Alert. CHEST: Clear to auscultation. CARDIOVASCULAR: Regular rate and rhythm, normal S1 and S2. No S3. No S4. No murmurs. ABDOMEN: Soft. EXTREMITIES: 1+ edema, more pronounced in the left lower extremity. CARDIOVASCULAR MEDICATIONS 1. Metoprolol tartrate 5 mg q.6 h. IV p.r.n. 2. Simvastatin 20 mg p.o. daily. 3. Furosemide p.r.n. post transfusion as well as 40 mg IV daily. STUDIES: Hemoglobin stable at 8.9 from 8.8 yesterday. White blood cells 12.6, platelets 198. INR 2.47. Creatinine 4.46, potassium 3.9, bicarbonate 24, glucose 274. Blood cultures no growth after 72 hours. ASSESSMENT 1. Acute anemia requiring packed red blood cells transfusion, suspect from acute blood loss. 2. Supratherapeutic international normalization ratio in the setting of Coumadin toxicity. 3. Atrial fibrillation, paroxysmal, currently in sinus rhythm. 4. Large heel ulcer with osteomyelitis. 5. Peripheral arterial disease by Doppler ultrasound. 6. Acute renal failure, now on dialysis. 7. Diabetes mellitus. 8. Hypertension. 9. Dyslipidemia. 10. Dementia. RECOMMENDATIONS: Doppler suggestive of hemodynamically significant stenosis to the left SFA. However, at this point, there is renal failure and unable to proceed with angiography. Continue current non-interventional management including antibiotics and wound care. Stool for occult blood was positive. Warfarin is on hold. GI evaluation advised. Continue the rest of the cardiovascular medications. Will follow closely. Job#: [id number]
--- NOTE | 2017-10-02 15:03 | Progress Note ---
DATE: October 02, 2017 TIME: 11:30 a.m. OVERNIGHT: Patient had rapid heart rate. Pain is about 3/10. REVIEW OF SYSTEMS: Denies any dizziness or chest pain. VITAL SIGNS: Reviewed. PHYSICAL EXAMINATION GENERAL: A tired-appearing man resting in bed. HEENT: Anicteric. CARDIOVASCULAR: Normal S1 and S2. LUNGS: Moderate breath sounds. ABDOMEN: Soft, nontender. EXTREMITIES: He has a left heel ulcer that is unstageable. He has trace edema on that leg. SKIN: Dry. He has a skin rash on the arms. PSYCHIATRIC: Flat affect. NEUROLOGICAL: Alert and oriented times 3. Moves all extremities. LABS: Reviewed. MEDICATIONS: Reviewed. ASSESSMENT: A 72-year-old man. 1. Acute metabolic encephalopathy secondary to severe hypokalemia. 2. Severe anemia. 3. Coumadin toxicity. 4. Acute kidney injury. 5. Sepsis. 6. Stool occult positive blood. 7. Atrial fibrillation with rapid ventricular response. 8. Groin fungal infection. 9. Left heel ulcer, unstageable. 10. Ambulatory dysfunction. 11. Acute kidney injury in the setting of chronic kidney disease, stage 3. 12. Metabolic acidosis. 13. Osteomyelitis of the left foot. 14. Urinary tract infection. PLAN 1. Continue dialysis per nephrology. 2. IV beta felipe and IV digoxin for heart rate control. 3. IV antibiotics per infectious disease. 4. Osteomyelitis of the left posterior calcaneus. Continue IV antibiotics. 5. Hemoglobin is 8.9 today. 6. INR was 2.47 yesterday. Will check INR today. 7. Random vancomycin was 16.3 today. 8. Follow up hepatitis panel. 9. Patient will likely need a BKA. I will defer to cardiology with the surgical team. 10. I have discussed the case with the patient's at bedside. 11. Critical care time more than 35 minutes. Job#: [id number]
[2017-10-02] MEDS: AMIODARONE HCL 200 MG TAB PO SCH ×2 (16:06→22:33)
[2017-10-02] MEDS: TRAZODONE HCL 50 MG TAB PO SCH (22:33)
[2017-10-02] MEDS: SIMVASTATIN 20 MG TAB PO SCH (22:33)
[2017-10-02] MEDS: ACETAMINOPHEN 325 MG TAB PO PRN (22:34)
[2017-10-03] VITALS (39 sets, daily range): BP systolic 80–151; BP diastolic 44–87
[2017-10-03] MEDS: HYDROMORPHONE 1MG/1ML INJ IV PRN ×5 (05:26→20:21)
[2017-10-03] MEDS: PIPERACILLIN/TAZO 2.25 GM 50 ML IV SCH ×3 (05:28→22:00)
[2017-10-03] MEDS: METOPROLOL TARTRATE INJ 1 MG/ML VIAL IV SCH (05:28)
[2017-10-03 07:08] LABS: HEMATOCRIT 26.2 % (38.2-49.6); HEMOGLOBIN 8.5 g/dL (14.0-18.0); MEAN CORPUSCULAR HEMOGLOBIN 28.1 pg (28-32); MEAN CORPUSCULAR HGB CONC 32.4 g/dL (31-35); MEAN CORPUSCULAR VOLUME 86.5 fL (81-99); PLATELET COUNT 186 x10e3/uL (140-360); RED BLOOD COUNT 3.03 x10e6/uL (4.3-5.7); RED CELL DISTRIBUTION WIDTH 15.9 % (11.7-14.4)
[2017-10-03] MEDS: INSULIN REGULAR, HUMAN 100 UNIT/1 ML 3ML VIAL SQ SCH ×4 (07:30→22:00)
[2017-10-03 08:24] LABS: ANION GAP 18.1 mmol/L (8-16); CALCIUM 8.2 mg/dL (8.4-10.2); CREATININE, SERUM 5.13 mg/dL (0.72-1.25); POTASSIUM 4.1 mmol/L (3.5-5.1)
[2017-10-03] MEDS: FUROSEMIDE INJ 10 MG/ML 4 ML VIAL IV SCH (09:08)
[2017-10-03] MEDS: PANTOPRAZOLE SOD 40 MG TABEC PO SCH (09:08)
[2017-10-03] MEDS: MORPHINE SULFATE 15MG TAB CR PO SCH ×2 (09:08→21:00)
[2017-10-03] MEDS: AMIODARONE HCL 200 MG TAB PO SCH ×2 (09:08→22:48)
[2017-10-03] MEDS: VENLAFAXINE HCL 37.5MG XR CAP PO SCH ×2 (09:08→21:00)
[2017-10-03] MEDS: FERROUS SULFATE 325 MG TAB PO SCH ×2 (09:08→18:03)
[2017-10-03] MEDS: FINASTERIDE 5 MG TAB PO SCH (09:08)
[2017-10-03] MEDS: METOPROLOL SUCCINATE 50 MG TAB XL PO SCH (09:49)
[2017-10-03] MEDS: SENNA-S TABLET PO SCH (09:49)
[2017-10-03] MEDS ORDERED: INSULIN DETEMIR 100 UNIT/ML PEN SQ SCH (10:00)
--- NOTE | 2017-10-03 10:42 | Progress Note ---
DATE: October 03, 2017 CARDIOLOGY PROGRESS NOTE SUBJECTIVE: No new complaints. Shortness of breath improving. OBJECTIVE VITAL SIGNS: Temperature 98.3, heart rate 66, respiratory rate 16, blood pressure 119/51, O2 sat 99% on nasal cannula. GENERAL: No acute distress, alert. NECK: No JVD. CHEST: Clear to auscultation. CARDIOVASCULAR: Regular rate and rhythm. Normal S1 and S2. No S3 or S4. Systolic ejection murmur /6. ABDOMEN: Soft. EXTREMITIES: Trace edema bilateral lower extremities. CARDIOVASCULAR MEDICATIONS 1. Metoprolol tartrate 5 mg IV q.6 h. 2. Amiodarone 400 mg p.o. q.12 h. 3. Simvastatin 20 mg p.o. nightly. 4. Metoprolol tartrate 5 mg IV q.6 h. p.r.n. 5. Furosemide IV p.r.n. STUDIES: White blood cells 7.4, hemoglobin 8.5, platelets 186. Chemistries are pending today. ASSESSMENT 1. Encephalopathy. 2. Severe anemia. 3. Coumadin toxicity, status post. 4. Acute kidney injury. 5. Sepsis. 6. Stool occult blood positive. 7. Atrial fibrillation, now in sinus rhythm. 8. Left heel ulcer with osteomyelitis. 9. Urinary tract infection. 10. Peripheral arterial disease by Doppler ultrasound. 11. Diabetes mellitus. 12. Hypertension. 13. Dyslipidemia. 14. Dementia. RECOMMENDATIONS 1. Given issues with renal function and recent positive occult blood in the setting of supratherapeutic INR, the patient is not a candidate for proceeding with angiography at this point. However, Doppler evidence is suggestive of significant left SFA stenosis. At a later date, this can be revisited depending on continued renal function as well as anemia and occult blood assessment. Continued evaluation advised. 2. Continue current cardiovascular medications. The patient is in normal sinus rhythm and not a current candidate for resuming anticoagulation until further workup completed. However, since he is in sinus rhythm, will attempt to maintain with p.o. amiodarone. Volume status improving overall. Job#: [id number]
[2017-10-03] MEDS ORDERED: SODIUM CHLORIDE 0.9% 1000ML 1,000 ML IV SCH (11:00)
[2017-10-03] MEDS ORDERED: EPOETIN ALFA 10000 UNIT/ML VIAL SC ONE (11:30)
--- NOTE | 2017-10-03 12:26 | Progress Note ---
TIME: 10:00 a.m. OVERNIGHT: No events. Feeling better. REVIEW OF SYSTEMS: Denies any dizziness or chest pain. PHYSICAL EXAMINATION VITAL SIGNS: Reviewed. GENERAL: A tired-appearing man resting in bed. HEENT: Anicteric. CARDIOVASCULAR: Normal S1 and S2. LUNGS: Moderate breath sounds. ABDOMEN: Soft and nontender. EXTREMITIES: He has a left unstageable ulcer at the heel. He has trace edema on the left leg as a result. SKIN: Dry. PSYCHIATRIC: Normal affect. NEUROLOGICAL: Alert and oriented x 3. Moves all extremities. LABS: Reviewed. MEDICATIONS: Reviewed. ASSESSMENT: A 72-year-old man: 1. Acute metabolic encephalopathy secondary to severe hypokalemia. 2. Severe anemia. 3. Coumadin toxicity. 4. Acute kidney injury. 5. Sepsis. 6. Stool occult blood positive. 7. Atrial fibrillation with rapid ventricular response. 8. Groin fungal infection. 9. Left heel ulcer, unstageable. 10. Ambulatory dysfunction. 11. Acute kidney injury in the setting of chronic kidney disease, stage 3. 12. Metabolic acidosis. 13. Osteomyelitis of the left foot. 14. Urinary tract infection. PLAN 1. Continue with dialysis. 2. IV beta-felipe and digoxin, continue therapy. 3. Continue IV antibiotics per infectious disease. 4. Surgical plan for osteomyelitis of the left foot is still pending. 5. Followup cardiovascular recommendations. 6. Continue to follow hemoglobin count. 7. INR is therapeutic. 8. Hemoglobin is 8.5 today. 9. Leukocytosis has resolved. 10. Glucose is somewhat controlled. We will titrate medications. 11. We will obtain INR tomorrow. 12. Hemologic studies ANCA and complements are normal. Follow up hepatitis panel and follow up light chain studies. Job#: [id number] MARKEL
[2017-10-03 13:22] LABS: BILIRUBIN,URINE NEGATIVE (NEGATIVE); KETONES,URINE NEGATIVE (NEGATIVE); LEUKOCYTE ESTERASE ,URINE 1+ (NEGATIVE); NITRITE,URINE NEGATIVE (NEGATIVE); URINE UROBILINOGEN 0.2 mg/dL (0.2 - 1)
[2017-10-03 13:26] LABS: CLARITY,URINE HAZY (CLEAR); COLOR,URINE STRAW (YELLOW); PROTEIN,URINE DIPSTICK TRACE (NEGATIVE)
[2017-10-03] MEDS: NYSTATIN 15 GM POWDER UD BTL TOP SCH (17:00)
[2017-10-03] MEDS: SIMVASTATIN 20 MG TAB PO SCH (21:00)
[2017-10-03] MEDS: TRAZODONE HCL 50 MG TAB PO SCH (22:48)
--- NOTE | 2017-10-03 22:54 | Progress Note ---
DATE: October 03, 2017 The patient is resting quietly. He is alert. His sensorium is clearer. He is not coughing. No dyspnea at rest, no vomiting, no diarrhea. No overt medication reaction reported. OBJECTIVE VITALS: Maximum temperature in the past 24 hours was up to 98.5 degrees Fahrenheit. He is doing well hemodynamically. HEAD AND NECK: There is diffuse petechiae, rash of his upper extremities that appear to be slowly involuting. He has no gross pallor. No obvious icterus. No oropharyngeal lesions. His neck is supple. CHEST: The chest is symmetric. The lungs are clear. Heart sounds are regular. Without a new murmur. ABDOMEN: Soft. Bowel sounds are present. EXTREMITIES: No acute erythema of his extremities. His left foot dressing is intact and clean. LAB: His white count 7.4. His creatinine is 5.1. There are no significant positive cultures. IMPRESSION: He is recovering from severe sepsis with multiorgan dysfunction. There is a gangrenous wound at the left heel. There is diffuse petechiae of his upper extremities of unclear etiology. He has renal failure. He is from infectious disease point. I suggest continue empiric antibiotics coverage. He needs vascular and podiatry surgery followups. Continue supportive care. Job#: [id number] YOEL
[2017-10-03] MEDS: FLUCONAZOLE 100 MG/NS 50 ML 50 ML IV SCH (23:30)
[2017-10-04 00:30] VITALS: BP 135/64
[2017-10-04 04:39] VITALS: BP 107/50
[2017-10-04] MEDS: PIPERACILLIN/TAZO 2.25 GM 50 ML IV SCH ×3 (05:54→22:00)
[2017-10-04 06:52] LABS: HEMATOCRIT 25.2 % (38.2-49.6); HEMOGLOBIN 8.1 g/dL (14.0-18.0); MEAN CORPUSCULAR HEMOGLOBIN 28.3 pg (28-32); MEAN CORPUSCULAR HGB CONC 32.1 g/dL (31-35); MEAN CORPUSCULAR VOLUME 88.1 fL (81-99); PLATELET COUNT 159 x10e3/uL (140-360); RED BLOOD COUNT 2.86 x10e6/uL (4.3-5.7)
[2017-10-04] MEDS: METHYLPREDNISOLONE SOD SUCC 40 MG/ML VIAL IV SCH ×3 (07:00→21:00)
[2017-10-04 07:10] LABS: ALBUMIN 1.4 g/dL (3.5-5.0); ALBUMIN/GLOBULIN RATIO 0.3 (0.8-2.0); ANION GAP 14.4 mmol/L (8-16); CALCIUM 7.5 mg/dL (8.4-10.2); CREATININE, SERUM 5.69 mg/dL (0.72-1.25); PHOSPHORUS 6.3 MG/DL (2.3-4.7); POTASSIUM 4.4 mmol/L (3.5-5.1)
[2017-10-04 07:18] LABS: INR 1.66; PROTHROMBIN TIME 20.5 seconds (11.9-14.5)
--- NOTE | 2017-10-04 07:24 | Progress Note ---
DATE: October 04, 2017 TIME: 5:50 a.m. OVERNIGHT: No events. Pain is controlled. REVIEW OF SYSTEMS: Denies any dizziness. PHYSICAL EXAMINATION: VITAL SIGNS: Reviewed. GENERAL APPEARANCE: Tired-appearing man resting in bed. HEENT: Anicteric. Patient has some oral lesions in the buccal mucosa and soft palate. CARDIOVASCULAR: Normal S1 and S2. LUNGS: Moderate breath sounds. ABDOMEN: Soft, nontender. EXTREMITIES: He has left leg unstageable heel ulcer. Edema is resolved. SKIN: Dry. PSYCHIATRIC: Normal affect. NEUROLOGICAL: Alert and oriented x3. Moving all extremities. LABS: Reviewed. MEDICATIONS: Reviewed. ASSESSMENT: A 72-year-old man: 1. Acute metabolic encephalopathy. 2. Severe anemia. 3. Coumadin toxicity. 4. Acute kidney injury. 5. Sepsis. 6. Stool occult blood positive. 7. Atrial fibrillation with rapid ventricular response. 8. Groin fungal infection. 9. Left heel ulcer, unstageable. 10. Ambulatory dysfunction. 11. Peripheral vascular disease. 12. Acute kidney injury in the setting of chronic kidney disease, stage 3. 13. Metabolic acidosis. 14. Osteomyelitis of the left foot. 15. Urinary tract infection. 16. Skin rash with some oral lesions. PLAN: 1. Continue dialysis. 2. Continue AV blockade with beta felipe and digoxin. 3. Continue IV antibiotics per infectious disease. 4. Consider adjustment of medications due to rash and oral lesion. 5. All cultures remain negative. 6. Leukocytosis, resolved. 7. Follow up surgical plan today. 8. Follow up coagulation studies today. 9. I will discuss the skin rash and oral lesion with Dr. Escoto of infectious disease. 10. Follow up hepatitis panel and light chain studies. Job#: [id number]
[2017-10-04] MEDS: INSULIN REGULAR, HUMAN 100 UNIT/1 ML 3ML VIAL SQ SCH ×4 (07:30→21:00)
[2017-10-04 08:00] VITALS: BP 146/67
--- NOTE | 2017-10-04 08:04 | Progress Note ---
DATE: October 04, 2017 The patient is fairly stable. I met him asleep. He seems in no acute distress. He is not coughing. No dyspnea at rest. No reported vomiting or diarrhea. No adverse medication reaction reported. OBJECTIVE VITALS: In the past 24 hours, maximum temperature was up to 98.3 degrees Fahrenheit, current temperature 97 degrees. He is stable hemodynamically. HEAD AND NECK: There is petechiae rash involving his upper extremities. There is very shallow ulceration involving the upper palate. His neck is supple. CHEST: The chest is symmetric. The lung sounds clear. HEART SOUNDS: Regular without a new murmur. ABDOMEN: Soft. Bowel sounds are present. EXTREMITIES: There is no acute erythema of his extremities otherwise. His left foot dressing is intact and clean. LAB: His white count 7.3, hemoglobin 8.1, platelet count 159,000. Serum creatinine 5.6. There are no significant positive cultures. There is a urine culture pending from September 30. IMPRESSION: He is recovering from severe sepsis with multiorgan dysfunction. There is a gangrenous decubitus wound at the left heel. There is petechiae rash involving the upper extremities. It seems to me that the rash is going through the natural stages of progression. There is superficial ulceration of his upper palate. Difficult to determine the etiology whether these are aphthous ulcers. I suggest continue current management. I was told by the family that the patient has had a petechiae rash of his upper extremities for several weeks that he has had biopsy at some point, when they also thought that this could be vasculitis. Apparently, no diagnosis was made, but the patient has received steroid therapy in the past for the same rash. I suggest continue current management. Continue supportive care. I have discussed the case with Dr. Chan. Job#: [id number] CQ
[2017-10-04] MEDS: INSULIN DETEMIR 100 UNIT/ML PEN SQ SCH (09:00)
[2017-10-04 10:23] LABS: ANISOCYTOSIS SLIGHT; BAND NEUTROPHILS % (MANUAL) 1 %; EOSINOPHILS % (MANUAL) 6 % (0-7); HYPOCHROMASIA SLIGHT; LYMPHOCYTES % (MANUAL) 8 % (19-48); MONOCYTES % (MANUAL) 6 % (3.4-9.0); NEUTROPHILS % (MANUAL) 79 % (40-74); RBC MORPHOLOGY COMMENT NORMAL
[2017-10-04 10:24] LABS: PLATELET ESTIMATE ADEQUATE; PLATELET MORPHOLOGY COMMENT NORMAL
[2017-10-04] MEDS: FUROSEMIDE INJ 10 MG/ML 4 ML VIAL IV SCH (10:58)
[2017-10-04] MEDS: VENLAFAXINE HCL 37.5MG XR CAP PO SCH ×2 (10:58→21:00)
[2017-10-04] MEDS: AMIODARONE HCL 200 MG TAB PO SCH ×2 (10:58→21:00)
[2017-10-04] MEDS: MORPHINE SULFATE 15MG TAB CR PO SCH ×2 (10:58→21:00)
[2017-10-04] MEDS: FINASTERIDE 5 MG TAB PO SCH (10:58)
[2017-10-04] MEDS: FERROUS SULFATE 325 MG TAB PO SCH ×2 (10:58→17:18)
[2017-10-04] MEDS: NYSTATIN 15 GM POWDER UD BTL TOP SCH ×2 (10:59→17:18)
[2017-10-04] MEDS: METOPROLOL SUCCINATE 50 MG TAB XL PO SCH ×2 (10:59→17:42)
[2017-10-04] MEDS: PANTOPRAZOLE SOD 40 MG TABEC PO SCH (10:59)
[2017-10-04] MEDS: SENNA-S TABLET PO SCH (10:59)
[2017-10-04 12:00] VITALS: BP 131/63
[2017-10-04] MEDS: METOPROLOL TARTRATE INJ 1 MG/ML VIAL IV PRN (12:09)
[2017-10-04] MEDS ORDERED: ALBUMIN 5% 250ML IV SCH (14:00)
[2017-10-04] MEDS: ALBUMIN 5% 250ML IV SCH ×2 (15:08→22:28)
[2017-10-04] MEDS ORDERED: SODIUM CHLORIDE 0.9% 250ML 500 ML IV PRN (15:15)
[2017-10-04] MEDS ORDERED: SODIUM CHLORIDE 0.9% 1000ML 2,000 ML IV PRN (15:15)
[2017-10-04] MEDS ORDERED: HEPARIN SOD (PORCINE) 1000 UNIT/ML SDV IV PRN (15:15)
[2017-10-04] MEDS ORDERED: ALBUMIN HUMAN 12.5GM / 50ML IV PRN (15:15)
[2017-10-04] MEDS ORDERED: MANNITOL 25% 12.5GM/50 ML VIAL IV PRN (15:15)
[2017-10-04 16:00] VITALS: BP 126/66
--- NOTE | 2017-10-04 18:11 | Progress Note ---
DATE: October 04, 2017 CARDIOLOGY PROGRESS NOTE SUBJECTIVE: The patient denies chest pain. He complains of congestion though. OBJECTIVE VITAL SIGNS: Temperature 97.2 degrees, pulse 120, respiratory rate 21, blood pressure 131/63, oxygen saturation 95% on 5 liters nasal cannula. GENERAL: Awake and in no acute distress, alert. LUNGS: Clear to auscultation bilaterally. No wheezes or crackles. CARDIOVASCULAR: Tachycardiac, irregularly irregular with no murmur, normal S1 and S2. ABDOMEN: Soft and nontender. EXTREMITIES: There is 2+ pitting edema on the left. CARDIAC MEDICATIONS: 1. Metoprolol tartrate 5 mg IV q.6 h. p.r.n. 2. Metoprolol succinate 50 mg p.o. daily. 3. 40 mg p.o. q.12 h. 4. Furosemide 40 mg IV daily. 5. Simvastatin 20 mg p.o. nightly. LABORATORY DATA: Sodium 132, potassium 4.4, chloride 99, CO2 of 23, BUN 76, creatinine 5.69. WBCs 7.3, hemoglobin 8.1, hematocrit 25.2, platelets 159,000. TELEMETRY: Atrial fibrillation, not rate controlled. IMPRESSION 1. Atrial fibrillation with rapid ventricular response, paroxysmal. 2. Large heel ulceration with osteomyelitis. 3. Peripheral arterial disease suggested by noninvasive Doppler evaluation. 4. Acute renal failure, now initiated on hemodialysis. 5. Diabetes mellitus. 6. Hypertension. 7. Hyperlipidemia. 8. Dementia. 9. Supratherapeutic international normalized ratio. 10. Anemia with positive stool occult blood requiring blood transfusion. RECOMMENDATIONS: Peripheral angiogram is indicated based on the patient's bilateral lower extremity arterial Doppler. Per discussion with nephrology, it is unlikely for the patient to have renal recovery. Consider GI evaluation given the patient's downtrending hemoglobin, hematocrit with positive stool occult blood. Hemoglobin is stable. We will plan to proceed with peripheral angiogram, timing to be determined. Will titrate up metoprolol given the patient's uncontrolled atrial fibrillation. No anticoagulation at this time given anemia with positive stool occult blood requiring blood transfusion. Volume management per nephrology given acute renal failure requiring hemodialysis. Thank you for this consult. We will continue to follow. Job#: [id number]
[2017-10-04 20:00] VITALS: BP 131/58
[2017-10-04] MEDS: TRAZODONE HCL 50 MG TAB PO SCH (21:00)
[2017-10-04] MEDS: FLUCONAZOLE 100 MG/NS 50 ML 50 ML IV SCH (21:00)
[2017-10-04] MEDS: SIMVASTATIN 20 MG TAB PO SCH (21:00)
[2017-10-05 00:35] VITALS: BP 132/71
[2017-10-05] MEDS: ALBUMIN 5% 250ML IV SCH (06:12)
[2017-10-05] MEDS: PIPERACILLIN/TAZO 2.25 GM 50 ML IV SCH ×3 (06:13→21:05)
[2017-10-05 07:51] VITALS: BP 160/72
[2017-10-05] MEDS: INSULIN REGULAR, HUMAN 100 UNIT/1 ML 3ML VIAL SQ SCH ×4 (08:20→21:05)
[2017-10-05] MEDS: FUROSEMIDE INJ 10 MG/ML 4 ML VIAL IV SCH (09:00)
[2017-10-05] MEDS: FINASTERIDE 5 MG TAB PO SCH (09:00)
[2017-10-05] MEDS: METOPROLOL SUCCINATE 50 MG TAB XL PO SCH ×2 (09:00→17:07)
[2017-10-05] MEDS: INSULIN DETEMIR 100 UNIT/ML PEN SQ SCH (09:00)
[2017-10-05] MEDS: VENLAFAXINE HCL 37.5MG XR CAP PO SCH ×2 (09:00→21:04)
[2017-10-05] MEDS: AMIODARONE HCL 200 MG TAB PO SCH ×2 (09:00→21:04)
[2017-10-05] MEDS: PANTOPRAZOLE SOD 40 MG TABEC PO SCH (09:00)
[2017-10-05] MEDS: SENNA-S TABLET PO SCH (09:00)
[2017-10-05] MEDS: METHYLPREDNISOLONE SOD SUCC 40 MG/ML VIAL IV SCH ×2 (09:00→21:04)
[2017-10-05] MEDS: FERROUS SULFATE 325 MG TAB PO SCH ×2 (11:17→17:07)
[2017-10-05] MEDS: MORPHINE SULFATE 15MG TAB CR PO SCH ×2 (11:18→21:05)
[2017-10-05] MEDS: NYSTATIN 15 GM POWDER UD BTL TOP SCH ×2 (11:18→17:07)
[2017-10-05 12:49] VITALS: BP 179/73
[2017-10-05 13:17] LABS: INR 1.39; PROTHROMBIN TIME 17.8 seconds (11.9-14.5)
[2017-10-05 13:25] LABS: ANION GAP 15.4 mmol/L (8-16); CALCIUM 8.1 mg/dL (8.4-10.2); CREATININE, SERUM 4.09 mg/dL (0.72-1.25); POTASSIUM 4.4 mmol/L (3.5-5.1)
[2017-10-05 13:34] LABS: HEMATOCRIT 25.4 % (38.2-49.6); HEMOGLOBIN 8.1 g/dL (14.0-18.0); MEAN CORPUSCULAR HEMOGLOBIN 27.8 pg (28-32); MEAN CORPUSCULAR HGB CONC 31.9 g/dL (31-35); MEAN CORPUSCULAR VOLUME 87.3 fL (81-99); PLATELET COUNT 123 x10e3/uL (140-360); RED BLOOD COUNT 2.91 x10e6/uL (4.3-5.7); RED CELL DISTRIBUTION WIDTH 15.9 % (11.7-14.4)
--- NOTE | 2017-10-05 14:05 | Progress Note ---
DATE: October 05, 2017 CARDIOLOGY PROGRESS NOTE SUBJECTIVE: The patient denies chest pain or shortness of breath. OBJECTIVE VITAL SIGNS: Temperature 96.1 degrees, pulse 61, respiratory rate 20, blood pressure 179/73, oxygen saturation 92% on 5 liters nasal cannula. GENERAL: Awake, alert, in no acute distress. LUNGS: Clear to auscultation bilaterally. No wheezes or crackles. CARDIOVASCULAR: Normal rate, regular rhythm, no murmur. Normal S1 and S2. ABDOMEN: Soft and nontender. EXTREMITIES: 2+ pitting edema, bilateral lower extremities. CARDIAC MEDICATIONS: 1. Metoprolol succinate 50 mg p.o. b.i.d. 2. Amiodarone 400 mg p.o. q.12 h. 3. Furosemide 40 mg IV daily. 4. Simvastatin 20 mg p.o. nightly. LABS: None today. TELEMETRY: Normal sinus rhythm. IMPRESSION 1. Atrial fibrillation with rapid ventricular response, paroxysmal, currently sinus rhythm. 2. Left heel ulceration with osteomyelitis. 3. Peripheral arterial disease suggested by noninvasive Doppler evaluation. 4. Acute renal failure, now initiated on hemodialysis. 5. Diabetes mellitus. 6. Hypertension. 1. Hyperlipidemia. 2. Dementia. 3. Supratherapeutic international normalized ratio, now subtherapeutic. 4. Anemia with positive stool occult blood requiring blood transfusion. RECOMMENDATIONS: Peripheral angiogram is indicated based on the patient's bilateral lower extremity arterial Doppler. Per discussion with nephrology, it is unlikely for the patient to have renal recovery. Consider GI evaluation given the patient's downtrending hemoglobin and hematocrit with positive stool occult blood. 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 No anticoagulation at this time given anemia with positive stool occult blood with transfusion requirement. Volume management per nephrology given acute renal failure requiring hemodialysis. Continue current cardiac medications otherwise. Thank you for this consult. We will continue to follow. Job#: [id number]
[2017-10-05] MEDS: HYDROMORPHONE 1MG/1ML INJ IV PRN ×2 (14:44→18:43)
[2017-10-05 14:49] LABS: LYMPHOCYTES % (MANUAL) 6 % (19-48); NEUTROPHILS % (MANUAL) 94 % (40-74)
[2017-10-05 14:51] LABS: PLATELET ESTIMATE SLIGHTLY DECREASED; PLATELET MORPHOLOGY COMMENT NORMAL; RBC MORPHOLOGY COMMENT NORMAL
[2017-10-05 17:30] VITALS: BP 158/72
[2017-10-05] MEDS ORDERED: HYDRALAZINE HCL 20 MG/ML VIAL IV SCH (18:00)
[2017-10-05] MEDS ORDERED: LORATADINE 10 MG TAB PO ONE (18:55)
[2017-10-05 20:00] VITALS: BP 167/76
[2017-10-05] MEDS: TRAZODONE HCL 50 MG TAB PO SCH (21:04)
[2017-10-05] MEDS: SIMVASTATIN 20 MG TAB PO SCH (21:05)
[2017-10-05] MEDS: FLUCONAZOLE 100 MG/NS 50 ML 50 ML IV SCH (21:44)
[2017-10-05] MEDS: FLUTICASONE PROPIONATE NASAL SPRAY NS SCH (21:44)
[2017-10-06 04:18] LABS: BASOPHILS % 0.1 % (0.0-1.0); HEMATOCRIT 26.7 % (38.2-49.6); HEMOGLOBIN 8.7 g/dL (14.0-18.0); LYMPHOCYTES # (AUTO) 0.5 (1.0-3.2); MEAN CORPUSCULAR HEMOGLOBIN 28.6 pg (28-32); MEAN CORPUSCULAR HGB CONC 32.6 g/dL (31-35); MEAN CORPUSCULAR VOLUME 87.8 fL (81-99); MONOCYTES # (AUTO) 0.3 (0.2-0.8); MONOCYTES % 2.3 % (4.4-11.3); NEUTROPHILS # (AUTO) 10.4 (2.1-6.9); NEUTROPHILS % 92.7 % (38.7-80.0); PLATELET COUNT 152 x10e3/uL (140-360); RED BLOOD COUNT 3.04 x10e6/uL (4.3-5.7); RED CELL DISTRIBUTION WIDTH 15.9 % (11.7-14.4)
[2017-10-06 04:34] LABS: ANION GAP 15.5 mmol/L (8-16); CALCIUM 7.9 mg/dL (8.4-10.2); CREATININE, SERUM 4.49 mg/dL (0.72-1.25); POTASSIUM 4.5 mmol/L (3.5-5.1)
[2017-10-06] MEDS: ONDANSETRON HCL INJ 2 MG/ML VIAL IV PRN ×3 (04:52→12:14)
[2017-10-06] MEDS: HYDROMORPHONE 1MG/1ML INJ IV PRN ×4 (04:53→23:02)
[2017-10-06] MEDS: PIPERACILLIN/TAZO 2.25 GM 50 ML IV SCH ×3 (05:18→22:14)
[2017-10-06 08:15] VITALS: BP 164/80
--- NOTE | 2017-10-06 08:27 | Progress Note ---
DATE: October 05, 2017 TIME: 7 a.m. OVERNIGHT: No events. REVIEW OF SYSTEMS: Denies any dizziness. PHYSICAL EXAMINATION VITAL SIGNS: Reviewed. GENERAL: A tired-appearing man resting in bed. HEENT: Anicteric. CARDIOVASCULAR: Normal S1 and S2. LUNGS: Moderate breath sounds. ABDOMEN: Soft. EXTREMITIES: He has edema of the left leg, trace. SKIN: Dry. PSYCHIATRIC: Normal affect. NEUROLOGICAL: Alert and oriented times 3. Moving all extremities. LABS: Reviewed. MEDICATIONS: Reviewed. ASSESSMENT: A 72-year-old man with: 1. Acute metabolic encephalopathy. 2. Severe anemia/Coumadin toxicity. 3. Acute kidney injury/end-stage renal disease requiring dialysis. 4. Sepsis. 5. Stool occult blood positive. 6. Atrial fibrillation with rapid ventricular response. 7. Groin fungal infection. 8. Left heel ulcer, unstageable. 9. Ambulatory dysfunction. 10. Peripheral vascular disease. 11. Metabolic acidosis. 12. Osteomyelitis of the left foot. 13. Urinary tract infection. 14. Skin rash. PLAN 1. Continue dialysis. 2. Continue AV blockade. 3. Continue IV antibiotics per infectious disease. 4. Follow up angiogram for the left leg. Job#: [id number] JOSE ARMANDO
--- NOTE | 2017-10-06 08:34 | Progress Note ---
DATE: October 06, 2017 TIME: 7:51 a.m. OVERNIGHT: Ultrasound of the left arm with possible DVT. REVIEW OF SYSTEMS: Denies any dizziness. PHYSICAL EXAMINATION VITAL SIGNS: Reviewed. GENERAL: A tired-appearing man resting in bed. HEENT: Anicteric. CARDIOVASCULAR: Normal S1 and S2. LUNGS: Moderate breath sounds. ABDOMEN: Soft and nontender. EXTREMITIES: He has trace edema of the left leg. He has an unstageable ulcer to the left heel. SKIN: He has a rash at the upper extremities. His skin is dry. PSYCHIATRIC: Normal affect. NEUROLOGICAL: Alert and appropriate. LABS: Reviewed. MEDICATIONS: Reviewed. ASSESSMENT: A 72-year-old man with: 1. Acute metabolic encephalopathy. 2. Severe anemia/Coumadin toxicity/stool occult blood positive. 3. Acute kidney injury/end-stage renal disease: Started on dialysis. 4. Sepsis. 5. Groin fungal infection. 6. Osteomyelitis of the left foot. 7. Atrial fibrillation with rapid ventricular response. 8. Hypertension/hyperlipidemia. 9. Left heel ulcer, unstageable. 10. Ambulatory dysfunction/peripheral vascular disease. 11. Urinary tract infection. 12. Skin rash. 13. Questionable left arm deep venous thrombosis. 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 PLAN 1. Continue dialysis. 2. Plan for angiogram of the left lower extremity today. 3. Continue IV antibiotics per infectious disease. 4. Skin rash is resolving. 5. All cultures remain negative. 6. Questionable DVT of the left upper extremity. Defer to cardiology. 7. Light chain nephropathy. 8. Patient is on IV Zosyn and IV fluconazole. He is also on IV methylprednisolone. Job#: [id number] ID
[2017-10-06] MEDS: INSULIN REGULAR, HUMAN 100 UNIT/1 ML 3ML VIAL SQ SCH ×4 (08:48→21:00)
[2017-10-06] MEDS: INSULIN DETEMIR 100 UNIT/ML PEN SQ SCH (08:48)
[2017-10-06 12:01] VITALS: BP 179/75
[2017-10-06] MEDS: FERROUS SULFATE 325 MG TAB PO SCH ×2 (12:02→17:15)
[2017-10-06] MEDS: METHYLPREDNISOLONE SOD SUCC 40 MG/ML VIAL IV SCH ×2 (12:02→21:45)
[2017-10-06] MEDS: VENLAFAXINE HCL 37.5MG XR CAP PO SCH ×2 (12:02→21:45)
[2017-10-06] MEDS: FLUTICASONE PROPIONATE NASAL SPRAY NS SCH ×2 (12:02→21:45)
[2017-10-06] MEDS: LORATADINE 10 MG TAB PO SCH (12:02)
[2017-10-06] MEDS: AMIODARONE HCL 200 MG TAB PO SCH ×2 (12:02→21:45)
[2017-10-06] MEDS: FUROSEMIDE INJ 10 MG/ML 4 ML VIAL IV SCH (12:02)
[2017-10-06] MEDS: SENNA-S TABLET PO SCH (12:03)
[2017-10-06] MEDS: PANTOPRAZOLE SOD 40 MG TABEC PO SCH (12:03)
[2017-10-06] MEDS: MORPHINE SULFATE 15MG TAB CR PO SCH ×2 (12:03→21:45)
[2017-10-06] MEDS: NIFEDIPINE CR 30 MG TAB PO SCH (12:03)
[2017-10-06] MEDS: FINASTERIDE 5 MG TAB PO SCH (12:03)
[2017-10-06] MEDS: NYSTATIN 15 GM POWDER UD BTL TOP SCH ×2 (12:03→17:15)
[2017-10-06] MEDS: METOPROLOL SUCCINATE 50 MG TAB XL PO SCH ×2 (12:03→17:15)
[2017-10-06] MEDS: EPOETIN ALFA 10000 UNIT/ML VIAL SC SCH (12:03)
--- NOTE | 2017-10-06 14:31 | Progress Note ---
DATE: October 06, 2017 CARDIOLOGY PROGRESS NOTE SUBJECTIVE: Patient denies chest pain or shortness of breath. His arm pain has improved. It remains swollen, however. OBJECTIVE VITAL SIGNS: Temperature 95.4 degrees, pulse 94, respiratory rate 18, blood pressure 179/75, oxygen saturation 96% on 4 liters nasal cannula. GENERAL: Awake, alert, in no acute distress. LUNGS: Clear to auscultation bilaterally. No wheezes or crackles. CARDIOVASCULAR: Normal rate, regular rhythm. No murmur. Normal S1 and S2. ABDOMEN: Soft, nontender. EXTREMITIES: 2+ pitting edema bilateral lower extremities. CARDIAC MEDICATIONS 1. Nifedipine 30 mg p.o. daily. 2. Metoprolol succinate 50 mg p.o. b.i.d. 3. Amiodarone 400 mg p.o. q.12 h. 4. Furosemide 40 mg IV daily. 5. Simvastatin 20 mg p.o. nightly. LABS: WBC 11.18, hemoglobin 8.7, hematocrit 26.7, platelets 152. Sodium 132, potassium 4.5, chloride 98, CO2 23, BUN 61, creatinine 4.49. TELEMETRY: Atrial fibrillation. IMPRESSION 1. Paroxysmal atrial fibrillation, rate controlled. 2. Left heel ulceration with osteomyelitis. 3. Peripheral arterial disease suggested by noninvasive Doppler evaluation. 1. Left upper extremity deep vein thrombosis of the brachial vein. 2. Acute renal failure on chronic kidney disease, declared end-stage renal disease by Nephrology, now on hemodialysis. 3. Diabetes mellitus. 4. Hypertension. 5. Hyperlipidemia. 6. Dementia. 7. Supratherapeutic international normalized ratio, now subtherapeutic. 8. Anemia requiring blood transfusion. RECOMMENDATIONS: Peripheral angiogram is indicated based on the patient's bilateral lower extremity arterial Doppler. Patient has been declared end-stage renal disease by Nephrology. As patient's hemoglobin and hematocrit have been stable and repeat stool occult blood is negative, we will plan to proceed with peripheral angiogram today. We will need to start him on heparin due to his left upper extremity DVT. Consider GI evaluation given the patient's prior stool occult blood and anemia. Volume management per Nephrology given acute renal failure requiring hemodialysis. Continue current cardiac medications. Thank you for this consult. We will continue to follow. Job#: [id number] EV
[2017-10-06 16:30] VITALS: BP 156/78
[2017-10-06 20:37] VITALS: BP 128/60
[2017-10-06] MEDS: FLUCONAZOLE 100 MG/NS 50 ML 50 ML IV SCH (21:30)
[2017-10-06] MEDS: TRAZODONE HCL 50 MG TAB PO SCH (21:45)
[2017-10-06] MEDS: SIMVASTATIN 20 MG TAB PO SCH (21:45)
[2017-10-07] VITALS: BP 122/60
[2017-10-07] MEDS ORDERED: PEG (High)/E-LYTE SOLN 4,000 ML BTL PO ONE (00:30)
[2017-10-07] MEDS: HYDROMORPHONE 1MG/1ML INJ IV PRN ×3 (03:26→23:27)
--- NOTE | 2017-10-07 03:46 | Progress Note ---
DATE: October 06, 2017 The patient is fairly stable. He is alert and responsive. His sensorium is clear. He is not coughing. No dyspnea at rest. No vomiting. No diarrhea. No adverse medication reaction reported. OBJECTIVE VITALS: In the past 24 hours, his maximum temperature was 96.8 degrees Fahrenheit. He is stable hemodynamically. SKIN: The petechiae rash of his upper extremities is resolving. There is mild edema of the left upper extremity. HEENT: There is no gross pallor. No obvious icterus. No oropharyngeal lesions. NECK: Supple. CHEST: Symmetric. The lungs are clear. HEART SOUNDS: Regular without a new murmur. ABDOMEN: Soft. Bowel sounds are present. EXTREMITIES: There is no acute erythema of the extremities. His left foot dressing is intact and clean. LABS: His white count is 11.1, hemoglobin 8.7, and platelet count 152,000. There are no new significant positive cultures. IMPRESSION/PLAN: He is afebrile and stable. He has been on empiric antibiotic treatment for sepsis. There is a gangrenous wound at the left heel. He has renal failure. He is on dialysis. There is petechiae rash of his upper extremities on unclear etiology. I suggest continue current management. Continue supportive care. Job#: [id number]
[2017-10-07 04:00] VITALS: BP 148/67
[2017-10-07] MEDS: PIPERACILLIN/TAZO 2.25 GM 50 ML IV SCH ×3 (05:37→22:00)
[2017-10-07 07:12] LABS: INR 2.13
[2017-10-07 07:13] LABS: PARTIAL THROMBOPLASTIN TIME 48.8 seconds (23.8-35.5)
[2017-10-07 07:37] LABS: FERRITIN 547.4 ng/mL (21.81-274.66)
[2017-10-07 07:53] LABS: FOLATE 8.4 ng/mL (7.0-15.4)
[2017-10-07 08:00] VITALS: BP 145/67
--- NOTE | 2017-10-07 08:36 | Progress Note ---
DATE: October 07, 2017 TIME: 8 a.m. OVERNIGHT: No events. REVIEW OF SYSTEMS: Denies any dizziness or chest pain. PHYSICAL EXAMINATION VITAL SIGNS: Reviewed. Within normal limits. GENERAL: A tired-appearing man resting in bed. HEENT: Anicteric. CARDIOVASCULAR: Normal S1 and S2. LUNGS: Moderate breath sounds. ABDOMEN: Soft, nontender and nondistended. EXTREMITIES: He has trace edema of the leg. On the left leg, he has an unstageable ulcer of the left heel. Petechial rash of upper extremity is improving. SKIN: Dry with rash, but extremity is improving. PSYCHIATRIC: Normal affect. NEUROLOGICAL: Alert and appropriate. LABS: Reviewed. MEDICATIONS: Reviewed. ASSESSMENT: A 72-year-old man with: 1. Acute metabolic encephalopathy. 2. Severe anemia/Coumadin toxicity/stool occult positive blood. 3. Acute kidney injury/end-stage renal disease: Started on dialysis. 4. Sepsis. 5. Groin fungal infection. 6. Osteomyelitis of the left foot. 7. Atrial fibrillation with rapid ventricular response. 8. Acute deep venous thrombosis of the left upper extremity. 9. Hypertension/hyperlipidemia. 10. Ambulatory dysfunction/peripheral vascular disease. 11. Urinary tract infection. 12. Skin rash. 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 PLAN 1. GI evaluation. 2. Plan to start anticoagulants after GI endoscopy. 3. Continue dialysis. 4. Continue IV antibiotics. 5. Angiogram of the left lower extremity still pending. 6. Continue IV Zosyn and IV fluconazole. 7. Follow up anemia panel. 8. INR today is 2.13. Job#: [id number] JOSE ARMANDO
[2017-10-07] MEDS: PANTOPRAZOLE SOD 40 MG TABEC PO SCH (09:00)
[2017-10-07] MEDS: SENNA-S TABLET PO SCH (09:00)
[2017-10-07] MEDS: VENLAFAXINE HCL 37.5MG XR CAP PO SCH ×2 (09:00→21:00)
[2017-10-07] MEDS: FERROUS SULFATE 325 MG TAB PO SCH ×2 (09:00→17:35)
[2017-10-07] MEDS: INSULIN DETEMIR 100 UNIT/ML PEN SQ SCH (10:00)
[2017-10-07] MEDS: FUROSEMIDE INJ 10 MG/ML 4 ML VIAL IV SCH (10:16)
[2017-10-07] MEDS: FLUTICASONE PROPIONATE NASAL SPRAY NS SCH ×2 (10:16→21:00)
[2017-10-07] MEDS: METHYLPREDNISOLONE SOD SUCC 40 MG/ML VIAL IV SCH ×2 (10:16→21:00)
[2017-10-07] MEDS: METOPROLOL SUCCINATE 50 MG TAB XL PO SCH ×2 (10:17→17:34)
[2017-10-07] MEDS: AMIODARONE HCL 200 MG TAB PO SCH ×2 (10:17→21:00)
[2017-10-07] MEDS: NYSTATIN 15 GM POWDER UD BTL TOP SCH ×2 (10:18→17:33)
[2017-10-07] MEDS: NIFEDIPINE CR 30 MG TAB PO SCH ×2 (10:18→17:35)
[2017-10-07] MEDS: LORATADINE 10 MG TAB PO SCH (10:19)
[2017-10-07] MEDS: INSULIN REGULAR, HUMAN 100 UNIT/1 ML 3ML VIAL SQ SCH ×4 (10:40→21:00)
[2017-10-07 12:00] VITALS: BP 164/68
[2017-10-07] MEDS ORDERED: CITRATE OF MAGNESIA 300ML BOTTLE PO ONE (13:00)
[2017-10-07] MEDS ORDERED: HEPARIN 25,000 UNIT/D5W 250ML 250 ML IV SCH (15:15)
--- NOTE | 2017-10-07 15:56 | Progress Note ---
DATE: October 07, 2017 CARDIOLOGY PROGRESS NOTE SUBJECTIVE: The patient denies chest pain or shortness of breath. He is undergoing preps for EGD and colonoscopy. OBJECTIVE VITAL SIGNS: Temperature 95.1 degrees, pulse 63, respiratory rate 18, blood pressure 164/68, oxygen saturation 94% on room air. GENERAL: Awake, alert, in no acute distress. LUNGS: Clear to auscultation bilaterally. No wheezes or crackles. CARDIOVASCULAR: Normal rate, regular rhythm. No murmur. Normal S1 and S2. ABDOMEN: Soft, nontender. EXTREMITIES: 2+ pitting edema bilateral lower extremities. CARDIAC MEDICATIONS 1. Metoprolol succinate 50 mg p.o. b.i.d. 2. Amiodarone 400 mg p.o. q.12 h. 3. Furosemide 40 mg IV daily. 4. Simvastatin 20 mg p.o. nightly. LABS: None today. TELEMETRY: Normal sinus rhythm. IMPRESSION 1. Paroxysmal atrial fibrillation, rate controlled. 2. Left heel ulceration with osteomyelitis. 3. Peripheral arterial disease suggested by noninvasive Doppler evaluation. 4. Left upper extremity deep vein thrombosis of the brachial vein. 5. Acute renal failure on chronic kidney disease, declared end-stage renal disease by Nephrology, now on hemodialysis. 6. Diabetes mellitus. 7. Hypertension. 8. Hyperlipidemia. 9. Dementia. 10. Supratherapeutic international normalized ratio, now subtherapeutic. 11. Anemia requiring blood transfusion. RECOMMENDATIONS: Peripheral angiogram is indicated based on the patient's bilateral lower extremity arterial Doppler. The patient has been declared end-stage renal disease by Nephrology. However, as patient is significantly anemic requiring blood transfusion earlier this admission with positive stool occult blood, we have requested GI evaluation. Plan is for EGD and colonoscopy. Will follow up with the results. Start heparin today as left upper extremity DVT. Volume management per Nephrology given acute renal failure requiring hemodialysis. Continue current cardiac medications otherwise. Thank you for this consult. We will continue to follow. Job#: [id number] [email or web address]
[2017-10-07 16:00] VITALS: BP 143/67
--- NOTE | 2017-10-07 17:08 | Progress Note ---
DATE: October 07, 2017 SUBJECTIVE: The patient is awake and responsive. He is in no acute distress. He is not coughing. No dyspnea at rest. No vomiting. No diarrhea. No overt medication reaction reported. OBJECTIVE VITAL SIGNS: In the past 24 hours, his maximum temperature was up to 95.4 degrees Fahrenheit. HEENT: He is hemodynamically stable. He has no pallor, no icterus, no oropharyngeal lesions. NECK: Supple. CHEST: Symmetric. LUNGS: Sound fairly clear. HEART: Sounds are regular without any murmur. ABDOMEN: Soft. Bowel sounds are present. EXTREMITIES: His left foot dressing is intact and clean. LABORATORY DATA: On October 06, his white count was 11.1, his creatinine 4.4. There are no new significant positive cultures. IMPRESSION: He has been on treatment for sepsis. There is a gangrenous unstagable wound of the left heel. He had altered mental status with concern for aspiration pneumonia. There is petechial rash of his upper extremities of unclear etiology. It seems to be resolving. He has end-stage renal disease. PLAN: I suggest continued current management. Monitor temperature, CBC and renal function. The patient has been improving clinically. Job#: [id number]
[2017-10-07] MEDS: FINASTERIDE 5 MG TAB PO SCH (17:35)
[2017-10-07] MEDS: ACETAMINOPHEN 325 MG TAB PO PRN (17:43)
[2017-10-07] MEDS ORDERED: PEG (High)/E-LYTE SOLN 4,000 ML BTL PO NR (18:00)
[2017-10-07] MEDS ORDERED: HEPARIN 25,000U/0.45% NS 250ML 1,500 UNIT in SODIUM CHLORIDE 0.9% 250ML 0 ML IV SCH (18:30)
[2017-10-07] MEDS ORDERED: HEPARIN SOD (PORCINE) 5,000 UNIT/ML VIAL IV ONE (18:50)
[2017-10-07 20:00] VITALS: BP 136/62
[2017-10-07] MEDS: FLUCONAZOLE 100 MG/NS 50 ML 50 ML IV SCH (21:00)
[2017-10-07] MEDS: TRAZODONE HCL 50 MG TAB PO SCH (21:00)
[2017-10-07] MEDS: SIMVASTATIN 20 MG TAB PO SCH (21:00)
[2017-10-07] MEDS ORDERED: SODIUM CHLORIDE 0.9% 250ML 250 ML ONE (22:01)
[2017-10-08] VITALS: BP 124/58
[2017-10-08 01:08] LABS: BASOPHILS % 0.1 % (0.0-1.0); HEMATOCRIT 28.6 % (38.2-49.6); HEMOGLOBIN 9.3 g/dL (14.0-18.0); LYMPHOCYTES # (AUTO) 0.6 (1.0-3.2); MEAN CORPUSCULAR HEMOGLOBIN 28.1 pg (28-32); MEAN CORPUSCULAR HGB CONC 32.5 g/dL (31-35); MEAN CORPUSCULAR VOLUME 86.4 fL (81-99); MONOCYTES # (AUTO) 0.4 (0.2-0.8); MONOCYTES % 3.3 % (4.4-11.3); NEUTROPHILS % 89.8 % (38.7-80.0); PLATELET COUNT 163 x10e3/uL (140-360); RED BLOOD COUNT 3.31 x10e6/uL (4.3-5.7); RED CELL DISTRIBUTION WIDTH 15.7 % (11.7-14.4)
[2017-10-08] MEDS: HEPARIN 25,000U/0.45% NS 250ML 1,500 UNIT in SODIUM CHLORIDE 0.9% 250ML 0 ML IV SCH (03:00)
[2017-10-08] MEDS: PIPERACILLIN/TAZO 2.25 GM 50 ML IV SCH ×3 (05:07→22:00)
[2017-10-08] MEDS: HYDROMORPHONE 1MG/1ML INJ IV PRN (06:23)
[2017-10-08 07:25] LABS: BASOPHILS % 0.1 % (0.0-1.0); HEMATOCRIT 27.9 % (38.2-49.6); HEMOGLOBIN 9.3 g/dL (14.0-18.0); LYMPHOCYTES # (AUTO) 0.6 (1.0-3.2); LYMPHOCYTES % 6.2 % (18.0-39.1); MEAN CORPUSCULAR HEMOGLOBIN 29.8 pg (28-32); MEAN CORPUSCULAR HGB CONC 33.3 g/dL (31-35); MEAN CORPUSCULAR VOLUME 89.4 fL (81-99); MONOCYTES # (AUTO) 0.2 (0.2-0.8); MONOCYTES % 2.6 % (4.4-11.3); NEUTROPHILS % 89.4 % (38.7-80.0); PLATELET COUNT 147 x10e3/uL (140-360); RED BLOOD COUNT 3.12 x10e6/uL (4.3-5.7); RED CELL DISTRIBUTION WIDTH 16.3 % (11.7-14.4)
[2017-10-08] MEDS: INSULIN REGULAR, HUMAN 100 UNIT/1 ML 3ML VIAL SQ SCH ×3 (07:30→17:20)
[2017-10-08 07:38] LABS: INR 1.45; PROTHROMBIN TIME 18.4 seconds (11.9-14.5)
[2017-10-08 07:48] LABS: ANION GAP 17.8 mmol/L (8-16); CALCIUM 7.4 mg/dL (8.4-10.2); CREATININE, SERUM 4.22 mg/dL (0.72-1.25); POTASSIUM 3.8 mmol/L (3.5-5.1); VANCOMYCIN,RANDOM 9.3 ug/mL
[2017-10-08 07:54] LABS: PARTIAL THROMBOPLASTIN TIME 122.8 seconds (23.8-35.5)
[2017-10-08 08:00] VITALS: BP 151/66
--- NOTE | 2017-10-08 08:27 | Progress Note ---
DATE: October 08, 2017 TIME: 7:40 a.m. OVERNIGHT: Patient being prepped for endoscopy. REVIEW OF SYSTEMS: Denies any dizziness. PHYSICAL EXAMINATION VITAL SIGNS: Reviewed. GENERAL: A tired-appearing man resting in bed. HEENT: Anicteric. Pupils respond to light. CARDIOVASCULAR: Normal S1 and S2. LUNGS: Moderate breath sounds. ABDOMEN: Soft, nontender and nondistended. EXTREMITIES: No edema of the lower extremities. He has a dressing on the left heel. Petechial rash on the upper extremities continues to resolve. SKIN: Dry. PSYCHIATRIC: Normal affect. NEUROLOGICAL: Alert and oriented times 3. LABS: Reviewed. MEDICATIONS: Reviewed. ASSESSMENT AND PLAN: A 72-year-old man with: 1. Acute metabolic encephalopathy. 2. Severe anemia/Coumadin toxicity/stool occult blood positive. 3. Acute kidney injury/end-stage renal disease, on hemodialysis. 4. Sepsis. 5. Groin fungal infection. 6. Osteomyelitis of the left foot. 7. Atrial fibrillation with rapid ventricular response. 8. Acute deep venous thrombosis of the left upper extremity. 9. Hypertension/hyperlipidemia. 10. Ambulatory dysfunction/peripheral vascular disease. 11. Urinary tract infection. 12. Skin rash. 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 PLAN 1. Continue bowel prep overnight. He is planned for endoscopy this morning. 2. Angiogram of the left lower extremities pending. 3. Continue IV antibiotics per infectious disease. 4. Patient on heparin for DVT treatment. 5. Patient on amiodarone for atrial fibrillation. 6. Blood pressure control and heart rate control. 7. Glucose control. 8. Follow up on endoscopy. 9. All cultures negative to date. Job#: [id number]
[2017-10-08] MEDS: VENLAFAXINE HCL 37.5MG XR CAP PO SCH ×2 (09:00→21:00)
[2017-10-08] MEDS: INSULIN DETEMIR 100 UNIT/ML PEN SQ SCH (09:00)
[2017-10-08] MEDS: LORATADINE 10 MG TAB PO SCH (10:30)
[2017-10-08] MEDS: FLUTICASONE PROPIONATE NASAL SPRAY NS SCH ×2 (10:30→23:35)
[2017-10-08] MEDS: AMIODARONE HCL 200 MG TAB PO SCH ×2 (10:30→21:00)
[2017-10-08] MEDS: METHYLPREDNISOLONE SOD SUCC 40 MG/ML VIAL IV SCH (10:30)
[2017-10-08] MEDS: FERROUS SULFATE 325 MG TAB PO SCH ×2 (10:30→17:41)
[2017-10-08] MEDS: SENNA-S TABLET PO SCH (10:31)
[2017-10-08] MEDS: NYSTATIN 15 GM POWDER UD BTL TOP SCH ×2 (10:31→17:41)
[2017-10-08] MEDS: FINASTERIDE 5 MG TAB PO SCH (10:31)
[2017-10-08] MEDS: PANTOPRAZOLE SOD 40 MG TABEC PO SCH (10:31)
[2017-10-08] MEDS ORDERED: HEPARIN 25,000U/0.45% NS 250ML 250 ML ONE (10:50)
[2017-10-08 12:00] VITALS: BP 153/67
[2017-10-08] MEDS: EPOETIN ALFA 10000 UNIT/ML VIAL SC SCH (12:58)
[2017-10-08] MEDS: FUROSEMIDE INJ 10 MG/ML 4 ML VIAL IV SCH (13:00)
[2017-10-08] MEDS: NIFEDIPINE CR 30 MG TAB PO SCH ×2 (13:00→17:41)
[2017-10-08] MEDS: METOPROLOL SUCCINATE 50 MG TAB XL PO SCH ×2 (13:01→17:41)
[2017-10-08] MEDS ORDERED: LIDOCAINE HCL 2% LOCAL INJ 5 ML SDV VIAL INJ ONE (14:30)
[2017-10-08] MEDS ORDERED: GLUCAGON FOR INJ 1 MG VIAL ONE (14:30)
[2017-10-08] MEDS ORDERED: PROPOFOL IV EMULSION 10 MG/ML 50 ML VIAL ONE (14:30)
[2017-10-08 14:42] LABS: INR 1.34; PROTHROMBIN TIME 17.3 seconds (11.9-14.5)
--- NOTE | 2017-10-08 14:46 | Progress Note ---
DATE: October 08, 2017 CARDIOLOGY PROGRESS NOTE SUBJECTIVE: The patient denies chest pain or shortness of breath. He has completed his [employer] prep and is waiting for colonoscopy. OBJECTIVE VITAL SIGNS: Temperature 96.1 degrees, pulse 74, respiratory rate 18, blood pressure 153/67, oxygen saturation 97% on 5 L. GENERAL: Awake, alert, in no acute distress. LUNGS: Clear to auscultation bilaterally. No wheezes or crackles. CARDIOVASCULAR: Normal rate, regular rhythm. No murmur. Normal S1 and S2. ABDOMEN: Soft, nontender. EXTREMITIES: 2+ pitting edema bilateral lower extremities. CARDIAC MEDICATIONS 1. Metoprolol succinate 50 mg p.o. b.i.d. 2. Nifedipine 30 mg p.o. b.i.d. 3. Furosemide 40 mg IV daily. 4. Amiodarone 400 mg p.o. q.12 h. 5. Simvastatin 20 mg p.o. nightly. LABS: INR 1.45, PTT 122.8. WBC 8.9, hemoglobin 9.3, hematocrit 27.9, platelets 147. Sodium 135, potassium 3.8, chloride 95, CO2 26, BUN 67, creatinine 4.22. TELEMETRY: Normal sinus rhythm. IMPRESSION 1. Paroxysmal atrial fibrillation, rate controlled. 2. Left heel ulceration with osteomyelitis. 3. Peripheral arterial disease by noninvasive Doppler evaluation. 4. Left upper extremity deep vein thrombosis of the brachial vein. 5. Acute renal failure on chronic kidney disease, declared end-stage renal disease by nephrology, now on hemodialysis. 6. Diabetes mellitus. 7. Hypertension. 8. Hyperlipidemia. 9. Dementia. 10. Supratherapeutic international normalized ratio, now subtherapeutic. 11. Anemia requiring blood transfusion. RECOMMENDATIONS: Peripheral angiogram is indicated based on the patient's bilateral lower extremity arterial Doppler. The patient has been declared end-stage renal disease by nephrology. However, the patient is significantly anemic, requiring blood transfusion earlier this admission with positive stool occult blood. We have requested GI evaluation. We will correct elevated PTT for colonoscopy. Heparin has been placed on hold. Volume management per nephrology given acute renal failure requiring hemodialysis. Continue current cardiac medications otherwise. Thank you for this consult. We will continue to follow. Job#: [id number]
[2017-10-08] MEDS ORDERED: VANCOMYCIN 1GM/NS 250 ML 250 ML IV ONE (15:30)
--- NOTE | 2017-10-08 15:39 | Progress Note ---
DATE: October 08, 2017 SUBJECTIVE: The patient is resting quietly. I met him asleep. The is at the bedside. There are no new systemic complaints, no adverse medication reaction reported. OBJECTIVE VITAL SIGNS: Over the past 24 hours, maximum temperature was up to 97.1 degrees Fahrenheit. GENERAL: He is dynamically stable. The petechial rash on his upper extremities is resolving. There is no gross pallor, no obvious icterus. NECK: Supple. CHEST: Symmetric. Breath sounds are coarse in the lung cheng. Heart sounds are regular with no murmur. ABDOMEN: Soft. Bowel sounds are present. EXTREMITIES: No acute erythema of his extremities otherwise. His left foot dressing is intact and clean. LABORATORY DATA: His white count is 8.9. His creatinine 4.2. There are no new culture reports IMPRESSION: He is recovering from severe sepsis with multiorgan dysfunction. His sensorium is more clear. He remains in renal failure. There is gangrenous wound on the left heel. There is likely osteomyelitis. He has also been receiving antibiotic empirically for pleural aspiration pneumonia. PLAN: I suggest to continue current management. Continue supportive care. Job#: [id number]
[2017-10-08 16:00] VITALS: BP 176/77
[2017-10-08] MEDS ORDERED: PHYTONADIONE 10 MG/ML AMP SC ONE (16:00)
[2017-10-08] MEDS ORDERED: FENTANYL CITRATE/PF 100MCG/2 ML INJ ONE (19:01)
[2017-10-08] MEDS ORDERED: MIDAZOLAM HCL 2 MG/2 ML VIAL ONE (19:01)
[2017-10-08 20:00] VITALS: BP 197/81
[2017-10-08] MEDS: SIMVASTATIN 20 MG TAB PO SCH (21:00)
[2017-10-08] MEDS: TRAZODONE HCL 50 MG TAB PO SCH (21:00)
[2017-10-09] VITALS: BP 173/72
[2017-10-09] MEDS: INSULIN REGULAR, HUMAN 100 UNIT/1 ML 3ML VIAL SQ SCH ×5 (00:03→21:45)
[2017-10-09] MEDS: METHYLPREDNISOLONE SOD SUCC 40 MG/ML VIAL IV SCH ×3 (00:36→21:45)
[2017-10-09] MEDS: HYDROMORPHONE 1MG/1ML INJ IV PRN ×4 (00:36→17:30)
[2017-10-09] MEDS: FLUCONAZOLE 100 MG/NS 50 ML 50 ML IV SCH ×2 (00:37→21:45)
[2017-10-09] MEDS: PIPERACILLIN/TAZO 2.25 GM 50 ML IV SCH (06:40)
[2017-10-09 07:46] LABS: BASOPHILS % 0.2 % (0.0-1.0); HEMOGLOBIN 8.6 g/dL (14.0-18.0); LYMPHOCYTES # (AUTO) 0.4 (1.0-3.2); LYMPHOCYTES % 7.1 % (18.0-39.1); MEAN CORPUSCULAR HEMOGLOBIN 28.9 pg (28-32); MEAN CORPUSCULAR HGB CONC 33.1 g/dL (31-35); MEAN CORPUSCULAR VOLUME 87.2 fL (81-99); MONOCYTES # (AUTO) 0.2 (0.2-0.8); MONOCYTES % 3.5 % (4.4-11.3); NEUTROPHILS # (AUTO) 4.5 (2.1-6.9); PLATELET COUNT 119 x10e3/uL (140-360); RED BLOOD COUNT 2.98 x10e6/uL (4.3-5.7); RED CELL DISTRIBUTION WIDTH 15.8 % (11.7-14.4)
[2017-10-09 08:00] VITALS: BP 188/81
[2017-10-09 08:04] LABS: ANION GAP 15.6 mmol/L (8-16); CALCIUM 7.7 mg/dL (8.4-10.2); CREATININE, SERUM 3.2 mg/dL (0.72-1.25); POTASSIUM 3.6 mmol/L (3.5-5.1)
[2017-10-09] MEDS: SENNA-S TABLET PO SCH (09:00)
[2017-10-09] MEDS: FUROSEMIDE INJ 10 MG/ML 4 ML VIAL IV SCH (09:54)
[2017-10-09] MEDS: LORATADINE 10 MG TAB PO SCH (09:54)
[2017-10-09] MEDS: VENLAFAXINE HCL 37.5MG XR CAP PO SCH ×2 (09:54→21:45)
[2017-10-09] MEDS: FERROUS SULFATE 325 MG TAB PO SCH ×2 (09:54→18:15)
[2017-10-09] MEDS: AMIODARONE HCL 200 MG TAB PO SCH ×2 (09:54→21:45)
[2017-10-09] MEDS: FLUTICASONE PROPIONATE NASAL SPRAY NS SCH ×2 (09:54→21:45)
[2017-10-09] MEDS: NIFEDIPINE CR 30 MG TAB PO SCH ×2 (09:54→21:45)
[2017-10-09] MEDS: PANTOPRAZOLE SOD 40 MG TABEC PO SCH (09:55)
[2017-10-09] MEDS: FINASTERIDE 5 MG TAB PO SCH (09:55)
[2017-10-09] MEDS: METOPROLOL SUCCINATE 50 MG TAB XL PO SCH ×2 (09:56→18:15)
[2017-10-09] MEDS: INSULIN DETEMIR 100 UNIT/ML PEN SQ SCH ×2 (09:57→21:45)
[2017-10-09 10:24] LABS: BAND NEUTROPHILS % (MANUAL) 1 %; LYMPHOCYTES % (MANUAL) 10 % (19-48); METAMYELOCYTES % (MANUAL) 1 % (0-0); MONOCYTES % (MANUAL) 6 % (3.4-9.0); NEUTROPHILS % (MANUAL) 82 % (40-74); RBC MORPHOLOGY COMMENT NORMAL
[2017-10-09 10:25] LABS: PLATELET ESTIMATE SLIGHTLY DECREASED; PLATELET MORPHOLOGY COMMENT NORMAL
[2017-10-09] MEDS: METOPROLOL TARTRATE INJ 1 MG/ML VIAL IV PRN ×2 (11:30→17:15)
[2017-10-09 12:00] VITALS: BP 213/86
[2017-10-09] MEDS ORDERED: INSULIN DETEMIR 100 UNIT/ML PEN SQ ONE (13:00)
--- NOTE | 2017-10-09 14:28 | Progress Note ---
DATE: October 09, 2017 INFECTIOUS DISEASE PROGRESS NOTE The patient is resting quietly. He is in no acute distress. He is not coughing. No dyspnea at rest. No vomiting, no diarrhea. No adverse medication reaction reported. In the past 24 hours, his maximum temperature was up to 97 degrees Fahrenheit. He is hemodynamically stable. There is no pallor, no icterus. No oropharyngeal lesions. His neck is supple. The chest is symmetric. The lungs sound less coarse. Heart sounds are regular. There is no new murmur. The abdomen is soft. Bowel sounds are present. No acute erythema or the extremities. The left foot dressing is intact and clean. His white count is 5.3, hemoglobin 8.6, platelet count 119. His creatinine is 3.2. Vancomycin random level 12.5. There are no new positive culture reports. IMPRESSION: He has been recovering from severe sepsis with multiorgan dysfunction. There is gangrene at the left heel with probably severe peripheral arterial disease. I was concerned for aspiration pneumonia. He is in renal failure. He had diffuse petechial rash of the upper extremities that appeared to be slowly resolving. I suggest continue current management. Monitor temperature, CBC, renal function. Continue local wound care. He has been seen by Podiatry Surgery. He needs vascular surgery followup as well. MINA HOLCOMB MD Job#: [id number] EV
[2017-10-09] MEDS ORDERED: VANCOMYCIN 1GM/NS 250 ML 250 ML IV ONE (14:30)
--- NOTE | 2017-10-09 14:37 | Progress Note ---
DATE: October 09, 2017 ORTHOPEDIC PROGRESS NOTE SUBJECTIVE: Patient seen at bedside. Accompanied by family members. In no apparent distress. OBJECTIVE VITAL SIGNS: Afebrile. Pulse rate 71. Respiration 18. Blood pressure 188/81. O2 saturation 96%. Has a blood glucose of 563. White blood cell count 5.3, hemoglobin 8.6, hematocrit 26.0 with a low platelet count of 119. INR of 1.34. Gangrenous changes noted to the left heel, covered. Skin temperature between warm and cool to touch to the distal aspect of the left foot. CFT less than 4 or 5 seconds. ASSESSMENT: 1. Gangrene. 2. Peripheral arterial disease with diabetic neuropathy. PLAN: Will continue to treat conservatively. Offloading. Local wound care. Patient will end up needing a [id number] amputation. Will continue to follow until amputation is done. Job#: [id number] EV
[2017-10-09 16:00] VITALS: BP 203/78
--- NOTE | 2017-10-09 16:15 | Progress Note ---
DATE: October 09, 2017 CARDIOLOGY PROGRESS NOTE SUBJECTIVE: Patient denies chest pain. He is still, however, complaining of shortness of breath today. He underwent EGD and colonoscopy yesterday, which required transfusion of jumbo FFP per GI request. OBJECTIVE VITAL SIGNS: Temperature 96.7 degrees, pulse 67, respiratory rate 18, blood pressure 213/86, oxygen saturation 98% on 3 liters. GENERAL: Awake, alert, in no acute distress. LUNGS: Clear to auscultation bilaterally. No wheezes or crackles. CARDIOVASCULAR: Normal rate, regular rhythm. No murmur. Normal S1 and S2. ABDOMEN: Soft, nontender. EXTREMITIES: 2+ pitting edema bilateral lower extremities. CARDIAC MEDICATIONS 1. Metoprolol succinate 50 mg p.o. b.i.d. 2. Nifedipine 30 mg p.o. q.12 h. 3. Amiodarone 400 mg p.o. q.12 h. 4. Lasix 40 mg IV daily. 5. Heparin drip. LABS: WBC 5.3, hemoglobin 8.6, hematocrit 26, platelets 119. Sodium 138, potassium 3.6, chloride 101, CO2 25, BUN 15, creatinine 3.2. TELEMETRY: Normal sinus rhythm. IMPRESSION 1. Paroxysmal atrial fibrillation, rate controlled. 2. Left heel ulceration with osteomyelitis. 3. Peripheral arterial disease by noninvasive Doppler evaluation. 4. Left upper extremity deep vein thrombosis of the brachial vein. 5. Acute renal failure on chronic kidney disease, declared end-stage renal disease by Nephrology, now on hemodialysis. 6. Diabetes mellitus. 7. Hypertension. 8. Hyperlipidemia. 9. Dementia. 10. Supratherapeutic international normalized ratio, now subtherapeutic. 11. Anemia requiring blood transfusion. RECOMMENDATIONS: We will follow up on the patient's EGD and colonoscopy results. Plan to proceed with peripheral angiogram this-coming week. Resume heparin drip given the brachial vein DVT. Have requested Nephrology provide the patient with an extra session of ultrafiltration today given transfusion of FFP yesterday for procedure. Patient's blood pressure is noted to be quite hypertensive. We will give an additional dose of nifedipine. Thank you for this consult. We will continue to follow. Job#: [id number] EV
[2017-10-09] MEDS ORDERED: NIFEDIPINE CR 30 MG TAB PO ONE (16:30)
[2017-10-09] MEDS ORDERED: INSULIN DETEMIR 100 UNIT/ML PEN SQ SCH (17:00)
[2017-10-09] MEDS: HEPARIN 25,000U/0.45% NS 250ML 1,500 UNIT in SODIUM CHLORIDE 0.9% 250ML 0 ML IV SCH (17:48)
[2017-10-09 20:00] VITALS: BP 198/70
[2017-10-09] MEDS: TRAZODONE HCL 50 MG TAB PO SCH (21:45)
[2017-10-09] MEDS: SIMVASTATIN 20 MG TAB PO SCH (21:45)
[2017-10-10] VITALS: BP 160/67
[2017-10-10] MEDS: ZOLPIDEM TARTRATE 5 MG TAB PO PRN (00:08)
[2017-10-10] MEDS: METRONIDAZOLE 250MG/NS 50ML 50 ML IV SCH ×3 (06:00→22:30)
[2017-10-10] MEDS: PANTOPRAZOLE 40 MG 10ML VIAL IV SCH ×2 (06:20→18:58)
[2017-10-10] MEDS: HYDROMORPHONE 1MG/1ML INJ IV PRN (06:23)
[2017-10-10] MEDS: INSULIN REGULAR, HUMAN 100 UNIT/1 ML 3ML VIAL SQ SCH ×2 (07:30→11:30)
[2017-10-10] MEDS: SUCRALFATE 1 GM TAB PO SCH ×4 (07:30→21:28)
[2017-10-10 08:00] VITALS: BP 149/71
[2017-10-10] MEDS: INSULIN DETEMIR 100 UNIT/ML PEN SQ SCH ×3 (09:00→21:28)
[2017-10-10] MEDS: AMIODARONE HCL 200 MG TAB PO SCH ×2 (10:00→21:28)
[2017-10-10] MEDS: LORATADINE 10 MG TAB PO SCH (10:00)
[2017-10-10] MEDS: FERROUS SULFATE 325 MG TAB PO SCH ×2 (10:00→18:57)
[2017-10-10] MEDS: VENLAFAXINE HCL 37.5MG XR CAP PO SCH ×2 (10:00→21:28)
[2017-10-10] MEDS: FLUTICASONE PROPIONATE NASAL SPRAY NS SCH ×2 (10:00→21:28)
[2017-10-10] MEDS: FINASTERIDE 5 MG TAB PO SCH (10:01)
[2017-10-10] MEDS: NIFEDIPINE CR 30 MG TAB PO SCH ×2 (10:01→21:28)
[2017-10-10] MEDS: METOPROLOL SUCCINATE 50 MG TAB XL PO SCH ×2 (10:01→18:58)
[2017-10-10] MEDS: SENNA-S TABLET PO SCH (10:01)
[2017-10-10 10:42] LABS: BASOPHILS % 0.2 % (0.0-1.0); EOSINOPHILS % 0.3 % (0.0-6.0); HEMOGLOBIN 9.3 g/dL (14.0-18.0); LYMPHOCYTES # (AUTO) 1.4 (1.0-3.2); LYMPHOCYTES % 12.5 % (18.0-39.1); MEAN CORPUSCULAR HEMOGLOBIN 28.3 pg (28-32); MEAN CORPUSCULAR HGB CONC 33.2 g/dL (31-35); MEAN CORPUSCULAR VOLUME 85.1 fL (81-99); MONOCYTES # (AUTO) 0.7 (0.2-0.8); MONOCYTES % 6.2 % (4.4-11.3); NEUTROPHILS # (AUTO) 8.7 (2.1-6.9); NEUTROPHILS % 78.2 % (38.7-80.0); PLATELET COUNT 176 x10e3/uL (140-360); RED BLOOD COUNT 3.29 x10e6/uL (4.3-5.7); RED CELL DISTRIBUTION WIDTH 15.7 % (11.7-14.4)
[2017-10-10 11:05] LABS: CALCIUM 7.6 mg/dL (8.4-10.2); CREATININE, SERUM 3.77 mg/dL (0.72-1.25)
[2017-10-10] MEDS: METHYLPREDNISOLONE SOD SUCC 40 MG/ML VIAL IV SCH ×2 (11:30→21:28)
[2017-10-10] MEDS: FUROSEMIDE INJ 10 MG/ML 4 ML VIAL IV SCH (11:30)
[2017-10-10] MEDS: HYDROMORPHONE 2MG/ML INJ IV PRN ×2 (11:45→15:08)
[2017-10-10 12:00] VITALS: BP_SYST 174; BP_SYST 192; BP_DIAS 78; BP_DIAS 80
[2017-10-10 12:40] LABS: BAND NEUTROPHILS % (MANUAL) 3 %; LYMPHOCYTES % (MANUAL) 12 % (19-48); MONOCYTES % (MANUAL) 5 % (3.4-9.0); NEUTROPHILS % (MANUAL) 80 % (40-74); PLATELET ESTIMATE ADEQUATE; PLATELET MORPHOLOGY COMMENT NORMAL; RBC MORPHOLOGY COMMENT NORMAL
[2017-10-10 12:48] LABS: INR 1.21; PROTHROMBIN TIME 15.9 seconds (11.9-14.5)
--- NOTE | 2017-10-10 14:04 | Progress Note ---
DATE: October 09, 2017 MEDICINE PROGRESS NOTE TIME OF SERVICE: 7:15 a.m. SUBJECTIVE: Overnight no events. REVIEW OF SYSTEMS: Denies any dizziness. VITAL SIGNS: Reviewed. PHYSICAL EXAMINATION GENERAL APPEARANCE: A tired-appearing man resting in bed. HEENT: Anicteric. CARDIOVASCULAR: Normal S1/S2. LUNGS: Moderate breath sounds. ABDOMEN: Soft, nontender, nondistended. EXTREMITIES: No edema. He has left heel with dressing in place. SKIN: Dry. PSYCHIATRIC: Flat affect. LABS: Reviewed. MEDICATIONS: Reviewed. ASSESSMENT: This is a 72-year-old man. 1. Acute metabolic encephalopathy. 2. Severe anemia/Coumadin toxicity/stool occult blood positive. 3. Acute kidney injury/end-stage renal disease on hemodialysis. 4. Sepsis/groin fungal infection/osteomyelitis of the left foot. 5. Atrial fibrillation with rapid ventricular response. 6. Acute deep vein thrombosis of the left upper extremity. 7. Hypertension/hyperlipidemia. 8. Ambulatory dysfunction/peripheral vascular disease. 9. Urinary tract infection. 10. Skin rash. 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 PLAN 1. Continue heparin. 2. Colonoscopy shows diverticulosis and internal hemorrhoids and endoscopy shows gastritis and distal esophagitis. 3. Follow up cardiovascular plan for level of amputation needed for the left leg. 4. Continue blood glucose control. 5. Dialysis per Nephrology. Job#: [id number] EV
--- NOTE | 2017-10-10 14:14 | Progress Note ---
DATE: October 10, 2017 MEDICINE PROGRESS NOTE TIME OF SERVICE: 6:51 a.m. SUBJECTIVE: Overnight no events. REVIEW OF SYSTEMS: Denies any dizziness. VITAL SIGNS: Reviewed. PHYSICAL EXAMINATION GENERAL APPEARANCE: A tired-appearing man resting in bed. HEENT: Anicteric. CARDIOVASCULAR: Normal S1/S2. LUNGS: Moderate breath sounds. ABDOMEN: Soft, nontender, nondistended. EXTREMITIES: Left heel has dressing in place, clean and dry. Petechial rash of the upper extremity has been resolving. SKIN: Dry. PSYCHIATRIC: Normal affect. NEUROLOGICALLY: Alert and oriented x3. LABS: Reviewed. MEDICATIONS: Reviewed. ASSESSMENT: A 72-year-old man. 1. Acute metabolic encephalopathy. 2. Severe anemia/Coumadin toxicity/stool occult blood positive. 3. Distal esophagitis/gastritis/internal hemorrhoids/diverticulosis. 4. Sepsis. 5. Groin fungal infection/osteomyelitis of the left foot. 6. Atrial fibrillation with rapid ventricular response. 7. Acute deep vein thrombosis of the left upper extremity. 8. Hypertension/hyperlipidemia. 9. Ambulatory dysfunction/peripheral vascular disease. 10. Urinary tract infection/skin rash. 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 PLAN 1. Continue heparin. No Coumadin at this time as patient may need surgical management of the left leg. 2. Leukocytosis has resolved. 3. Glucose is uncontrolled. Titration of those medications per Endocrinology. 4. Random vancomycin yesterday was 12.5. 5. Peripheral angiogram is pending this upcoming week. 6. Antibiotics per Infectious Disease. Job#: [id number] EV
[2017-10-10 16:00] VITALS: BP 167/78
[2017-10-10] MEDS: INSULIN LISPRO 100 UNIT/1 ML 3ML VIAL SQ SCH ×3 (16:26→21:30)
[2017-10-10 20:00] VITALS: BP 146/70
[2017-10-10 21:14] LABS: FREE T4 (FREE THYROXINE) 0.93 ng/dL (0.8-1.8); THYROID STIMULATING HORMONE 2.088 uIU/mL (0.350-4.940)
[2017-10-10] MEDS: SIMVASTATIN 20 MG TAB PO SCH (21:28)
[2017-10-10] MEDS: TRAZODONE HCL 50 MG TAB PO SCH (21:28)
[2017-10-10] MEDS: FLUCONAZOLE 100 MG/NS 50 ML 50 ML IV SCH (21:28)
[2017-10-10 22:47] LABS: INR 1.28; PROTHROMBIN TIME 16.7 seconds (11.9-14.5)
[2017-10-11 00:36] VITALS: BP 163/77
[2017-10-11] MEDS: HEPARIN 25,000U/0.45% NS 250ML 1,500 UNIT in SODIUM CHLORIDE 0.9% 250ML 0 ML IV SCH (03:00)
--- NOTE | 2017-10-11 04:47 | Progress Note ---
DATE: October 10, 2017 SUBJECTIVE: Patient is seen at bedside, no distress. Denies any history of fever, chills, nausea or vomiting. Waiting to have an arteriogram this coming Wednesday. OBJECTIVE VITALS: Afebrile. Pulse rate 58. Blood pressure 149/71. O2 saturation at 94%. LABS: Has a white blood cell count of 11.1, hemoglobin 9.3, hematocrit 28.0 with a platelet count of 176,000. INR of 1.34. ASSESSMENT 1. Gangrenous changes noted to the plantar aspect of left heel. 2. Peripheral arterial disease. PLANT: Continue local wound care. Continue offloading. Will continue to follow. Continue IV. Job#: [id number] GE
[2017-10-11] MEDS: PANTOPRAZOLE 40 MG 10ML VIAL IV SCH ×2 (05:41→17:47)
[2017-10-11] MEDS: METRONIDAZOLE 250MG/NS 50ML 50 ML IV SCH ×3 (05:41→22:00)
[2017-10-11 05:44] LABS: HEMATOCRIT 29.8 % (38.2-49.6); HEMOGLOBIN 9.8 g/dL (14.0-18.0); MEAN CORPUSCULAR HEMOGLOBIN 28.4 pg (28-32); MEAN CORPUSCULAR HGB CONC 32.9 g/dL (31-35); MEAN CORPUSCULAR VOLUME 86.4 fL (81-99); PLATELET COUNT 181 x10e3/uL (140-360); RED BLOOD COUNT 3.45 x10e6/uL (4.3-5.7); RED CELL DISTRIBUTION WIDTH 15.9 % (11.7-14.4)
--- NOTE | 2017-10-11 06:04 | Progress Note ---
DATE: October 10, 2017 SUBJECTIVE: The patient denies chest pain or shortness of breath. He reports he will receive hemodialysis today. However, he does report he feels poorly, but cannot describe this in further detail. OBJECTIVE VITALS: Temperature 96.9 degrees, pulse 58, respiratory rate 20, blood pressure 149/71, oxygen saturation 94% on 3 L nasal cannula. GENERAL: Awake, alert. No acute distress. LUNGS: Clear to auscultation bilaterally. No wheezes or crackles. CARDIOVASCULAR: Normal rate. Regular rhythm. No murmur. Normal S1, S2. ABDOMEN: Soft, nontender. EXTREMITIES: 3+ pitting edema in bilateral lower extremities. CARDIAC MEDICATIONS 1. Furosemide 40 mg IV daily. 2. Nifedipine 30 mg p.o. q.12 h. 3. Metoprolol succinate 50 mg p.o. b.i.d. 4. Amiodarone 400 mg p.o. q.12 h. 5. Simvastatin 20 mg p.o. nightly. LABS: WBC 11.15, hemoglobin 9.3, hematocrit 28, platelets 176,000. Sodium 135, potassium 3, chloride 113, CO2 25, BUN 59, creatinine 3.77. Telemetry: Normal sinus rhythm. IMPRESSION 1. Paroxysmal atrial fibrillation, rate controlled. 2. Left heel ulceration with osteomyelitis. 3. Peripheral arterial disease by noninvasive Doppler evaluation. 4. Left lower extremity deep vein thrombosis of the brachial vein. 5. Acute renal failure on chronic kidney disease, declared end-stage renal disease by nephrology, now on hemodialysis. 6. Diabetes mellitus. 7. Hypertension. 8. Hyperlipidemia. 9. Dementia. 10. Supratherapeutic international normalized ratio, now subtherapeutic. 11. Anemia requiring blood transfusions. RECOMMENDATIONS: We will follow up on the patient's EGD and colonoscopy results. Plan to proceed with peripheral angiogram this coming week. Heparin drip presently resumed for his brachial vein DVT. Patient's blood pressure continues to be quite hypertensive. Titrate up nifedipine. Thank you for this consult. Will continue to follow. Job#: [id number]
[2017-10-11] MEDS: INSULIN LISPRO 100 UNIT/1 ML 3ML VIAL SQ SCH ×7 (07:30→21:00)
[2017-10-11 07:37] VITALS: BP 154/76
[2017-10-11] MEDS: VENLAFAXINE HCL 37.5MG XR CAP PO SCH ×2 (09:55→21:00)
[2017-10-11] MEDS: METOPROLOL SUCCINATE 50 MG TAB XL PO SCH ×2 (09:55→17:47)
[2017-10-11] MEDS: SENNA-S TABLET PO SCH (09:55)
[2017-10-11] MEDS: FINASTERIDE 5 MG TAB PO SCH (09:55)
[2017-10-11] MEDS: AMIODARONE HCL 200 MG TAB PO SCH ×2 (09:55→21:00)
[2017-10-11] MEDS: NIFEDIPINE CR 30 MG TAB PO SCH ×2 (09:55→21:00)
[2017-10-11] MEDS: FERROUS SULFATE 325 MG TAB PO SCH ×2 (09:55→17:47)
[2017-10-11] MEDS: FLUTICASONE PROPIONATE NASAL SPRAY NS SCH ×2 (09:55→21:00)
[2017-10-11] MEDS: SUCRALFATE 1 GM TAB PO SCH ×4 (09:55→21:00)
[2017-10-11] MEDS: LORATADINE 10 MG TAB PO SCH (09:55)
[2017-10-11] MEDS: METHYLPREDNISOLONE SOD SUCC 40 MG/ML VIAL IV SCH ×2 (09:55→21:00)
[2017-10-11] MEDS: INSULIN DETEMIR 100 UNIT/ML PEN SQ SCH ×3 (09:55→21:00)
[2017-10-11] MEDS: FUROSEMIDE INJ 10 MG/ML 4 ML VIAL IV SCH (09:55)
--- NOTE | 2017-10-11 10:05 | Progress Note ---
DATE: October 10, 2017 SUBJECTIVE: The patient is resting quietly. He is being dialyzed. He is in no acute distress. He is not coughing. No dyspnea at rest. No vomiting. No diarrhea. No adverse medication reaction reported. OBJECTIVE VITAL SIGNS: Over the past 24 hours, his maximum temperature was up to 96.7 degrees Fahrenheit. GENERAL: He is hemodynamically stable. HEENT: He has no pallor and no icterus. No oropharyngeal lesions. NECK: Supple. CHEST: Symmetric. LUNGS: Clear. HEART: Sounds are regular. There is no new murmur. ABDOMEN: Soft. Bowel sounds are present. EXTREMITIES: His left foot dressing is intact and clean. LABORATORY DATA: His white count currently 11.1. His creatinine is 3.7 with dialysis. Vancomycin random level today was 20.3. There are no new positive culture reports. IMPRESSION He has been recovering from severe sepsis with multiorgan dysfunction. There is a gangrenous wound on the left heel. He has renal failure and is on dialysis. He had diffuse petechial rash involving his upper extremities of unclear etiology. Clinically, he is much improved. I suggest to continue current management. Monitor temperature, CBC and renal function. Continue local care to his left heel wound. Job#: [id number]
[2017-10-11 11:42] VITALS: BP 151/68
[2017-10-11] MEDS: EPOETIN ALFA 10000 UNIT/ML VIAL SC SCH (12:40)
--- NOTE | 2017-10-11 15:22 | Progress Note ---
DATE: October 11, 2017 CARDIOLOGY PROGRESS NOTE SUBJECTIVE: The patient denies chest pain or shortness of breath. However, he is complaining of diarrhea. OBJECTIVE VITAL SIGNS: Temperature 96.6 degrees, pulse 72, respiratory rate 20, blood pressure 151/68, oxygen saturation 94% on 3 liters per nasal cannula. GENERAL: Awake, alert. No acute distress. LUNGS: Clear to auscultation bilaterally. No wheezes or crackles. CARDIOVASCULAR: Normal rate. Regular rhythm. No murmur. Normal S1, S2. ABDOMEN: Soft, nontender. EXTREMITIES: 3+ pitting edema in bilateral lower extremities. CARDIAC MEDICATIONS 1. Furosemide 40 mg IV daily. 2. Nifedipine 60 mg p.o. q.12 h. 3. Metoprolol succinate 50 mg p.o. b.i.d. 4. Amiodarone 400 mg p.o. q.12 h. 5. Simvastatin 20 mg p.o. nightly. LABS: WBC 11.7, hemoglobin 9.8, hematocrit 29.8, platelets 181,000. Telemetry: Normal sinus rhythm. IMPRESSION 1. Paroxysmal atrial fibrillation, rate controlled. 2. Left heel ulceration with osteomyelitis. 3. Peripheral arterial disease by noninvasive Doppler evaluation. 4. Left upper extremity deep vein thrombosis of the brachial vein. 5. Acute renal failure on chronic kidney disease, declared end-stage renal disease by nephrology, now on hemodialysis. 6. Diabetes mellitus. 7. Hypertension. 8. Hyperlipidemia. 9. Dementia. 10. Supratherapeutic international normalized ratio, now subtherapeutic. 11. Anemia requiring blood transfusion. RECOMMENDATIONS: Follow up the patient's EGD and colonoscopy results. Plan to pursue peripheral angiogram this coming week. Heparin drip for brachial vein DVT. Blood pressure improved with increase in nifedipine. Will monitor for further need for up-titration. Thank you for this consult. We will continue to follow. Job#: [id number]
--- NOTE | 2017-10-11 15:43 | Progress Note ---
DATE: October 11, 2017 SUBJECTIVE: Patient seen at bedside. Sleepy and in no distress. OBJECTIVE VITAL SIGNS: Afebrile. Pulse rate 72. Blood pressure 151/68, O2 saturation 94%. LABORATORY DATA: Has a white blood cell count of 11.7, hemoglobin 9.8, hematocrit 29.8 with a platelet count of 181. Has gangrenous changes to the posterior aspect of left heel with the Achilles tendon exposed with foul smell present. Pedal pulses are diminished. ASSESSMENT: Peripheral arterial disease with osteomyelitis, gangrene, grade 4 ulcer with exposed tendon. PLAN: Will continue local wound care. Continue offloading. Patient might be undergoing an arteriogram on Wednesday. Will try to salvage foot if possible. Job#: [id number] GH
[2017-10-11] MEDS: HYDROMORPHONE 2MG/ML INJ IV PRN ×2 (16:05→19:32)
[2017-10-11 16:33] VITALS: BP 147/72
--- NOTE | 2017-10-11 18:03 | Consultation ---
DATE OF CONSULTATION: October 10, 2017 ENDOCRINE CONSULTATION Thank you very much for referring this patient. This is a 72-year-old white male gentleman who is referred to me for evaluation of uncontrolled diabetes mellitus. Patient reportedly is a known diabetic for 30-plus years, has multiple complications related to diabetes including severe diabetic sensorimotor neuropathy, peripheral vascular disease and end end-stage renal failure on chronic hemodialysis program. Patient came to the hospital with history of recurrent hypoglycemic episodes and uncontrolled diabetes mellitus. His other problems include history of chronic atrial fibrillation with RVR and on anticoagulation. Patient also has a nonhealing ulcer of the left foot for possible BKA. He is on Levemir insulin 10 units twice daily and Humalog with each meal depending upon the blood sugars. Patient also has status post sepsis. PHYSICAL EXAMINATION: GENERAL: Today, the patient is alert, and a little bit apprehensive. VITAL SIGNS: Heart rate is around 78. Blood pressure 140/80 mmHg. HEENT: Examination essentially unremarkable. Thyroid is palpable. Clinically, he is near euthyroid. CHEST: Bilateral vesicular breathing. Has mild bronchospasm. CARDIAC: Both 1st and 2nd heart sounds. There is no 3rd or 4th heart sound. Ejection sound is grade 2/6. EXTREMITIES: The patient has nonhealing ulcer of the left foot and decreased peripheral pulses both dorsalis pedis and the posterior tibial. CLINICAL IMPRESSION: 1. Diabetes mellitus type 2, uncontrolled with complications for 30-plus years. 2. End-stage renal failure on chronic hemodialysis. 3. Atrial fibrillation with rapid ventricular response. 4. Peripheral vascular disease. 5. Ulcer of the left foot. 6. Anemia. 7. Coagulopathy. 8. Chronic obstructive pulmonary disease. PLAN: The plan at this time is to do a hemoglobin A1c, thyroid function test and adjust insulin dose and decrease his IV steroids. Thanks for referring this patient. I will be following this patient with you. Job#: [id number]
[2017-10-11 20:38] VITALS: BP 153/72
[2017-10-11] MEDS: TRAZODONE HCL 50 MG TAB PO SCH (21:00)
[2017-10-11] MEDS: FLUCONAZOLE 100 MG/NS 50 ML 50 ML IV SCH (21:00)
[2017-10-11] MEDS: SIMVASTATIN 20 MG TAB PO SCH (21:00)
[2017-10-11] MEDS: ZOLPIDEM TARTRATE 5 MG TAB PO PRN (21:00)
[2017-10-12] VITALS (7 sets, daily range): BP systolic 134–159; BP diastolic 65–75
[2017-10-12] MEDS: HYDROMORPHONE 2MG/ML INJ IV PRN ×6 (03:38→23:01)
[2017-10-12] MEDS ORDERED: HEPARIN 25,000U/0.45% NS 250ML 250 ML ONE (03:48)
[2017-10-12] MEDS: HEPARIN 25,000U/0.45% NS 250ML 1,500 UNIT in SODIUM CHLORIDE 0.9% 250ML 0 ML IV SCH (03:49)
[2017-10-12] MEDS: PANTOPRAZOLE 40 MG 10ML VIAL IV SCH ×2 (05:46→18:24)
[2017-10-12] MEDS: METRONIDAZOLE 250MG/NS 50ML 50 ML IV SCH ×3 (05:46→21:00)
[2017-10-12 07:22] LABS: ANION GAP 12.7 mmol/L (8-16); CALCIUM 7.7 mg/dL (8.4-10.2); CREATININE, SERUM 3.26 mg/dL (0.72-1.25); POTASSIUM 3.7 mmol/L (3.5-5.1)
[2017-10-12] MEDS: SUCRALFATE 1 GM TAB PO SCH ×4 (07:30→20:19)
[2017-10-12] MEDS: INSULIN LISPRO 100 UNIT/1 ML 3ML VIAL SQ SCH ×7 (08:10→21:55)
[2017-10-12] MEDS: NIFEDIPINE CR 30 MG TAB PO SCH ×2 (08:35→20:19)
[2017-10-12] MEDS: METOPROLOL SUCCINATE 50 MG TAB XL PO SCH ×2 (08:35→17:12)
[2017-10-12] MEDS: METHYLPREDNISOLONE SOD SUCC 40 MG/ML VIAL IV SCH ×2 (08:35→20:18)
[2017-10-12] MEDS: FINASTERIDE 5 MG TAB PO SCH (08:35)
[2017-10-12] MEDS: AMIODARONE HCL 200 MG TAB PO SCH ×2 (08:35→20:19)
[2017-10-12] MEDS: FUROSEMIDE INJ 10 MG/ML 4 ML VIAL IV SCH (08:35)
[2017-10-12] MEDS: LOSARTAN POTASSIUM 25 MG TAB PO SCH (08:35)
[2017-10-12] MEDS: SENNA-S TABLET PO SCH (08:35)
[2017-10-12] MEDS: VENLAFAXINE HCL 37.5MG XR CAP PO SCH ×2 (08:35→20:19)
[2017-10-12] MEDS: FERROUS SULFATE 325 MG TAB PO SCH ×2 (08:35→17:11)
[2017-10-12] MEDS: LORATADINE 10 MG TAB PO SCH (08:35)
[2017-10-12] MEDS: FLUTICASONE PROPIONATE NASAL SPRAY NS SCH ×2 (08:35→20:59)
[2017-10-12] MEDS: INSULIN DETEMIR 100 UNIT/ML PEN SQ SCH ×3 (09:00→21:55)
[2017-10-12] MEDS: ONDANSETRON HCL INJ 2 MG/ML VIAL IV PRN (13:25)
--- NOTE | 2017-10-12 13:59 | Progress Note ---
DATE: October 12, 2017 The patient is resting quietly. He is currently being dialyzed. He is not coughing. No dyspnea at rest. No vomiting. No diarrhea. No adverse medication reaction reported. PHYSICAL EXAMINATION VITALS: In the past 24 hours, maximum temperature was up to 98.1 degrees Fahrenheit. He is hemodynamically stable. HEENT: He has no pallor. No icterus. No oropharyngeal lesions. NECK: Supple. CHEST: Symmetric. Lungs are clear. HEART: Sounds are regular without new murmur. ABDOMEN: Soft. Bowel sounds are present. EXTREMITIES: There is no acute erythema of his extremities. There is a gangrenous wound at the left heel. He is on vancomycin. Random level on October 11, 2017, was 18.1. His white count is 11.7. His creatinine is 3.2. There are no new positive culture reports. IMPRESSION: He has been recovering from severe sepsis with shock and multiorgan dysfunction. The petechiae rash of his upper extremities are significantly resolved. There is a gangrenous wound at the left heel. He has renal failure and is on dialysis. He has mild leukocytosis. Currently, afebrile. I suggest continue same treatment. Monitor temperature, CBC and renal function. He is awaiting vascular studies and further decision about management of his left foot ulceration and infection. Job#: [id number] TN
--- NOTE | 2017-10-12 14:11 | Progress Note ---
DATE: October 12, 2017 CARDIOLOGY PROGRESS NOTE SUBJECTIVE: The patient denies chest pain or shortness of breath. He was seen in hemodialysis. OBJECTIVE VITAL SIGNS: Temperature 98.5 degrees, pulse 64, respiratory rate 18, blood pressure 142/66, oxygen saturation 98% on 3 liters. GENERAL: Awake, alert, in no acute distress. LUNGS: Clear to auscultation bilaterally. No wheezes or crackles. CARDIOVASCULAR: Normal rate, regular rhythm. No murmur. Normal S1 and S2. ABDOMEN: Soft, nontender. EXTREMITIES: 3+ pitting edema bilateral lower extremities. CARDIAC MEDICATIONS 1. Heparin drip. 2. Nifedipine 60 mg p.o. q.12 h. 3. Amiodarone 400 mg p.o. q.12 h. 4. Simvastatin 20 mg p.o. nightly. 5. Metoprolol succinate 50 mg p.o. b.i.d. 6. Furosemide 40 mg IV daily. LABS: WBC 11.78, hemoglobin 9.8, hematocrit 29.8, platelets 181. Sodium 136, potassium 3.7, chloride 102, CO2 25, BUN 41, creatinine 3.26. TELEMETRY: Normal sinus rhythm. IMPRESSION 1. Paroxysmal atrial fibrillation, rate controlled. 2. Left heel ulceration with osteomyelitis. 3. Peripheral arterial disease by noninvasive Doppler evaluation. 4. Left upper extremity deep vein thrombosis of the brachial vein. 5. Acute renal failure on chronic kidney disease, declared end-stage renal disease, now on hemodialysis. 6. Diabetes mellitus. 7. Hypertension. 8. Hyperlipidemia. 9. Dementia. 10. Supratherapeutic international normalized ratio, now subtherapeutic. 11. Anemia requiring blood transfusion. RECOMMENDATIONS: EGD and colonoscopy revealed esophagitis, gastritis, hemorrhoids and diverticulosis. Plan to pursue peripheral angiogram this week. We will check the schedule for availability. Continue heparin drip for brachial vein DVT. Start aspirin. Blood pressure is better. We will continue to monitor for need for uptitration. Thank you for this consult. We will continue to follow. Job#: [id number] EV
[2017-10-12] MEDS: FLUCONAZOLE 100 MG/NS 50 ML 50 ML IV SCH (20:18)
[2017-10-12] MEDS: TRAZODONE HCL 50 MG TAB PO SCH (20:19)
[2017-10-12] MEDS: SIMVASTATIN 20 MG TAB PO SCH (20:19)
[2017-10-12] MEDS: ZOLPIDEM TARTRATE 5 MG TAB PO PRN (23:28)
[2017-10-13 00:48] VITALS: BP 138/64
[2017-10-13] MEDS: HYDROMORPHONE 2MG/ML INJ IV PRN ×4 (02:45→18:08)
[2017-10-13] MEDS: HEPARIN 25,000U/0.45% NS 250ML 1,500 UNIT in SODIUM CHLORIDE 0.9% 250ML 0 ML IV SCH (03:55)
--- NOTE | 2017-10-13 04:38 | Progress Note ---
DATE: October 11, 2017 TIME: 5:05 a.m. OVERNIGHT: No events. REVIEW OF SYSTEMS: Denies any chest pain. PHYSICAL EXAMINATION VITAL SIGNS: Reviewed. GENERAL: A tired-appearing man resting in bed. HEENT: Anicteric. CARDIOVASCULAR: Normal S1 and S2. LUNGS: Moderate breath sounds. ABDOMEN: Soft, nontender and nondistended. EXTREMITIES: Left heel dressing in place. Petechial rash on the upper extremity resolving. SKIN: Dry. PSYCHIATRIC: Normal affect. NEUROLOGICAL: Alert and oriented times 3. LABS: Reviewed. MEDICATIONS: Reviewed. ASSESSMENT: A 72-year-old man with: 1. Acute metabolic encephalopathy. 2. Severe anemia/Coumadin toxicity/stool occult blood positive. 3. Distal esophagitis/gastritis/internal hemorrhoids/diverticulosis. 4. Sepsis. 5. Groin fungal infection/osteomyelitis of the left foot. 6. Atrial fibrillation with rapid ventricular response. 7. Acute deep venous thrombosis of the left upper extremity. 8. Hypertension/hyperlipidemia. 9. Ambulatory dysfunction/peripheral vascular disease. 10. Urinary tract infection/skin rash. 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 PLAN 1. Continue heparin for DVT treatment and atrial fibrillation. 2. Vancomycin treatment. 3. Peripheral angiogram pending. 4. Antibiotics per infectious disease. Job#: [id number] JOSE ARMANDO
--- NOTE | 2017-10-13 04:44 | Progress Note ---
DATE: October 12, 2017 TIME: 5:05 a.m. OVERNIGHT: Reduced urine output. REVIEW OF SYSTEMS: Denies any dizziness. PHYSICAL EXAMINATION VITAL SIGNS: Reviewed. GENERAL: A tired-appearing man resting in bed. HEENT: Anicteric. CARDIOVASCULAR: Normal S1/S2. LUNGS: Moderate breath sounds. ABDOMEN: Soft, nontender, nondistended. EXTREMITIES: Left heel dressing in place, clean and dry. SKIN: Dry. PSYCHIATRIC: Normal affect. NEUROLOGICAL: Alert and oriented times 3. LABS: Reviewed. MEDICATIONS: Reviewed. ASSESSMENT: This is a 72-year-old man. 1. Acute metabolic encephalopathy. 2. Severe anemia/Coumadin toxicity/stool occult blood positive. 3. Distal esophagitis/gastritis/internal hemorrhoids/diverticulosis. 4. Sepsis. 5. Groin fungal infection/osteomyelitis of the left foot. 6. Atrial fibrillation with rapid ventricular response. 7. Acute deep venous thrombosis of the left upper extremity. 8. Hypertension. 9. Ambulatory dysfunction/peripheral vascular disease. 10. Urinary tract infection/skin rash. 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 PLAN 1. Continue heparin. 2. With osteomyelitis of the foot. 3. Followup lab results. 4. Glucose control. 5. Reduced urine output, will monitor closely and give fluids as needed. Job#: [id number] CQ
[2017-10-13] MEDS: METRONIDAZOLE 250MG/NS 50ML 50 ML IV SCH ×3 (05:58→22:30)
[2017-10-13] MEDS: PANTOPRAZOLE 40 MG 10ML VIAL IV SCH ×2 (05:58→17:45)
[2017-10-13 06:11] VITALS: BP 150/67
[2017-10-13 07:00] LABS: BASOPHILS % 0.1 % (0.0-1.0); HEMOGLOBIN 8.8 g/dL (14.0-18.0); LYMPHOCYTES # (AUTO) 0.6 (1.0-3.2); LYMPHOCYTES % 6.4 % (18.0-39.1); MEAN CORPUSCULAR HEMOGLOBIN 28.1 pg (28-32); MEAN CORPUSCULAR HGB CONC 31.4 g/dL (31-35); MEAN CORPUSCULAR VOLUME 89.5 fL (81-99); MONOCYTES # (AUTO) 0.5 (0.2-0.8); MONOCYTES % 5.1 % (4.4-11.3); NEUTROPHILS # (AUTO) 7.7 (2.1-6.9); NEUTROPHILS % 86.4 % (38.7-80.0); PLATELET COUNT 150 x10e3/uL (140-360); RED BLOOD COUNT 3.13 x10e6/uL (4.3-5.7); RED CELL DISTRIBUTION WIDTH 17.1 % (11.7-14.4)
[2017-10-13 07:27] LABS: CALCIUM 7.7 mg/dL (8.4-10.2); CREATININE, SERUM 2.98 mg/dL (0.72-1.25)
[2017-10-13] MEDS: SUCRALFATE 1 GM TAB PO SCH ×4 (07:30→20:55)
[2017-10-13] MEDS: INSULIN LISPRO 100 UNIT/1 ML 3ML VIAL SQ SCH ×7 (07:30→20:55)
[2017-10-13 08:00] VITALS: BP 145/66
[2017-10-13] MEDS: FUROSEMIDE INJ 10 MG/ML 4 ML VIAL IV SCH (09:00)
[2017-10-13] MEDS: METHYLPREDNISOLONE SOD SUCC 40 MG/ML VIAL IV SCH ×2 (09:00→20:55)
[2017-10-13] MEDS: LOSARTAN POTASSIUM 25 MG TAB PO SCH (09:00)
[2017-10-13] MEDS: SENNA-S TABLET PO SCH (09:00)
[2017-10-13] MEDS: FLUTICASONE PROPIONATE NASAL SPRAY NS SCH ×2 (09:00→20:55)
[2017-10-13] MEDS: FERROUS SULFATE 325 MG TAB PO SCH ×2 (09:00→17:00)
[2017-10-13] MEDS: VENLAFAXINE HCL 37.5MG XR CAP PO SCH ×2 (09:00→20:55)
[2017-10-13] MEDS: NIFEDIPINE CR 30 MG TAB PO SCH ×2 (09:00→20:55)
[2017-10-13] MEDS: LORATADINE 10 MG TAB PO SCH (09:00)
[2017-10-13] MEDS: METOPROLOL SUCCINATE 50 MG TAB XL PO SCH ×2 (09:00→17:00)
[2017-10-13] MEDS: AMIODARONE HCL 200 MG TAB PO SCH ×2 (09:00→20:55)
[2017-10-13] MEDS: FINASTERIDE 5 MG TAB PO SCH (09:00)
[2017-10-13] MEDS: ASPIRIN 81 MG ENTERIC COATED PO SCH (09:00)
[2017-10-13] MEDS ORDERED: IOPAMIDOL 300MG/ML 100 ML INFUS..BTL IV ONE (09:30)
[2017-10-13] MEDS ORDERED: SODIUM CHLORIDE 0.9% 1000ML 1,000 ML ONE ×2 (09:30→10:38)
[2017-10-13] MEDS ORDERED: HEPARIN SOD/SOD CHLORIDE 2,000 ML ONE (09:30)
[2017-10-13] MEDS ORDERED: LIDOCAINE HCL 2% LOCAL 20 ML VIAL ONE (09:30)
[2017-10-13] MEDS ORDERED: FENTANYL CITRATE/PF 100MCG/2 ML INJ ONE (10:13)
[2017-10-13] MEDS ORDERED: MIDAZOLAM HCL 2 MG/2 ML VIAL ONE (10:13)
[2017-10-13] MEDS ORDERED: SODIUM CHLORIDE 0.9% 500ML 500 ML ONE (10:17)
[2017-10-13] MEDS ORDERED: VERAPAMIL HCL 2.5 MG/ML 2 ML VIAL ONE (10:38)
[2017-10-13] MEDS ORDERED: HEPARIN SOD (PORCINE) 1000 UNIT/ML 30ML ONE (10:41)
[2017-10-13] MEDS ORDERED: NITROGLYCERIN/D5W 200 MCG/ML 250 ML ONE (11:14)
[2017-10-13] MEDS ORDERED: SODIUM CHLORIDE 0.9% 1000ML 1,000 ML IV SCH (11:35)
[2017-10-13] MEDS ORDERED: CLOPIDOGREL BISULFATE 75 MG TAB ONE (11:45)
[2017-10-13] MEDS ORDERED: ASPIRIN 325 MG TAB ONE (11:45)
[2017-10-13] MEDS: EPOETIN ALFA 10000 UNIT/ML VIAL SC SCH (12:00)
[2017-10-13] MEDS: INSULIN DETEMIR 100 UNIT/ML PEN SQ SCH (12:04)
--- NOTE | 2017-10-13 12:33 | Progress Note ---
DATE: October 13, 2017 INFECTIOUS DISEASE PROGRESS NOTE The patient is resting quietly. He is in no distress. He is not coughing. No dyspnea at rest. No vomiting, no diarrhea. No overt medication reaction reported. Maximum temperature in the past 24 hours was up to 99.2 degrees Fahrenheit. He is hemodynamically stable. There is no pallor, no icterus. No oropharyngeal lesions. The neck is supple. The chest is symmetric. The lungs are clear. Heart sounds are regular without a significant murmur. The abdomen is soft. Bowel sounds are present. There is no acute erythema of the extremities. His white count is 8.9, down from 11.7. His creatinine is 2.9 with dialysis. There are no new positive culture reports. IMPRESSION: He has been on treatment for sepsis with multiorgan dysfunction. There is a gangrenous wound on the left heel with probable peripheral arterial disease. I am told by the nursing staff that he is scheduled for angiographic procedure today. He has end-stage renal disease. His leukocytosis has resolved. He is afebrile. I suggest continue current management, continue local wound care. Job#: [id number] RODRÍGUEZ
--- NOTE | 2017-10-13 13:01 | Progress Note ---
DATE: CARDIOLOGY PROGRESS NOTE SUBJECTIVE: Denies chest pain or shortness of breath. Status post left SFA orbital atherectomy and drug-eluting balloon angioplasty with excellent results. Has chronic total occlusion of left posterior tibial artery. Patent left anterior tibial and left peroneal arteries down to the foot. OBJECTIVE VITAL SIGNS: Reviewed and stable. Temperature 96.4, heart rate 68, respiratory rate 18, blood pressure 145/66, O2 sat 98% on 2 liter per minute nasal cannula. GENERAL: No acute distress. CHEST: Clear to auscultation. CARDIOVASCULAR: Regular rate and rhythm. Normal S1 and S2. No S3, no S4, no murmurs. ABDOMEN: Soft. EXTREMITIES: 1+ edema bilateral lower extremities with left foot dressings in place. CARDIOVASCULAR MEDICATIONS: Reviewed. Aspirin 81 mg daily and clopidogrel 75 mg daily initiated starting today. Nifedipine extended release 60 mg q.12 hours. Amiodarone 400 mg q.12 hours. Simvastatin 10 mg nightly. Metoprolol succinate 50 mg b.i.d. Furosemide 40 mg IV daily. Metoprolol tartrate 5 mg q.6 hours p.r.n. STUDIES REVIEWED: Hemoglobin stable at 8.8, white blood cells 8.9, platelets 150. Creatinine 2.98, potassium 4, bicarbonate 26. Most recent stool occult blood on October 06 was negative. TELEMETRY: In sinus rhythm. ASSESSMENT 1. Peripheral arterial disease with critical limb ischemia status post left superficial femoral artery orbital atherectomy and drug-eluting balloon angioplasty. 2. Paroxysmal atrial fibrillation. 3. Status post metabolic encephalopathy. 4. Severe anemia in the setting of Coumadin toxicity with esophagitis, gastritis, internal hemorrhoids and diverticulosis. Most recent stool occult blood negative. 5. Osteomyelitis of the left foot. 6. Left upper extremity deep venous thrombosis. 7. Hypertension. 8. Urinary tract infection. 9. Light chain nephropathy. PLAN: Continue current cardiovascular medications. Hold heparin for today, can resume tomorrow. Aspirin and Plavix post revascularization. Closely monitor H\T\H and for recurrent bleeding. Appreciate GI input and volume management per Nephrology. Job#: [id number] RODRÍGUEZ
--- NOTE | 2017-10-13 13:15 | Operative Report ---
DATE OF PROCEDURE: October 13, 2017 PROCEDURE INDICATIONS: Critical limb ischemia with foot wound to the left lower extremity. PROCEDURES PERFORMED 1. Abdominal aortogram. 2. Selective lower extremity angiography, bilateral. 3. Third-order catheter placement from right common femoral artery to the left common femoral artery. 4. Additional 3rd-order catheter placement from right common femoral artery to the left popliteal artery for additional angiography of the initially poorly visualized vessels below the knee. 5. CSI atherectomy of the left superficial femoral artery with a 1.25 crown at 90,000 and 140,000 revolutions per minute passes. 6. Left superficial femoral artery drug-eluting balloon angioplasty with a 5.0 x 150 Lutonix drug-eluting balloon. 7. Right common femoral artery 6-Greek Angio-Seal closure. PROCEDURE COMPLICATIONS: None. ESTIMATED BLOOD LOSS: Less than 15 mL. PROCEDURE SUMMARY: After consent was obtained, the patient was prepped and draped in a sterile fashion. Right femoral site was locally infiltrated with 2% lidocaine. Access was obtained using the micropuncture kit. A short 6-Greek sheath was placed. An Omni Flush catheter was advanced into the distal descending abdominal aorta for angiography with digital subtraction. Additional angiography of each of the bilateral lower extremities was performed with catheter positions in their respective common femoral arteries as well as in the left popliteal artery using a seeker catheter. Heparin was used to maintain an ACT over 250 throughout the procedure. Aspirin and Plavix preload was provided. Wire exchange from a Roadrunner to a ViperWire was performed with wire positioned distal to the left peroneal artery. Initial wire interrogation seeking an ostium of the posterior tibial was unsuccessful. Orthogonal views also revealed a flush occluded left posterior tibial with no clear origin stump noted. Attention was then directed to CSI atherectomy of the left SFA, which was performed with 90,000 and 140,000 rpm passes across the target lesions of the mid to distal left SFA. This was followed by drug-eluting balloon angioplasty with 5.0 x 150 Lutonix balloon to 12 atmospheres. Final angiography reveals BRANDEN-3 flow, no flow-limiting dissections, and no perforations. Less than 10% residual stenosis across the treated area of the left SFA. 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 ANGIOGRAPHIC FINDINGS 1. The distal descending abdominal aorta has luminal irregularities. The renal arteries are patent. The common iliac, external iliac and internal iliac arteries have luminal irregularities, so do the bilateral common femoral and profunda femoris. The right SFA has 30% stenosis in the mid portion. The left SFA has 70% focal stenosis, which is calcific moderately, and diffuse 70% area of stenosis, which is also moderately calcific. These were the treated lesions. Post intervention, there was less than 10% residual stenosis. 2. The bilateral anterior tibial arteries are patent. On the left, there is 50% proximal stenosis. The bilateral TP trunks are patent. On the left, there is 50% stenosis. The bilateral peroneal arteries are patent with less than 30% stenosis. The bilateral posterior tibial arteries are occluded 100% throughout. CONCLUSIONS: Successful left SFA orbital atherectomy and drug-eluting balloon angioplasty with excellent results. Residual occluded left posterior tibial artery. Plantar arteries do reconstitute via the peroneal and dorsalis pedis artery collaterals. RECOMMENDATIONS 1. Aspirin 81 mg daily. 2. Clopidogrel 75 mg daily. 3. Bed rest. 4. Continue wound care and surgical management per all the treating physicians. Job#: [id number]
[2017-10-13 14:22] VITALS: BP 153/67
[2017-10-13 16:00] VITALS: BP 138/63
[2017-10-13 20:00] VITALS: BP 157/68
[2017-10-13] MEDS: HYDROCODONE/APAP 5MG-325MG TAB PO PRN (20:00)
[2017-10-13] MEDS: TRAZODONE HCL 50 MG TAB PO SCH (20:55)
[2017-10-13] MEDS: SIMVASTATIN 20 MG TAB PO SCH (20:55)
[2017-10-14] MEDS: INSULIN DETEMIR 100 UNIT/ML PEN SQ SCH ×3 (02:22→21:00)
[2017-10-14 02:29] VITALS: BP 133/77
[2017-10-14] MEDS: HYDROMORPHONE 2MG/ML INJ IV PRN ×7 (03:15→21:43)
[2017-10-14 04:54] VITALS: BP 128/76
[2017-10-14] MEDS: METRONIDAZOLE 250MG/NS 50ML 50 ML IV SCH ×3 (06:15→22:15)
[2017-10-14] MEDS: PANTOPRAZOLE 40 MG 10ML VIAL IV SCH ×2 (06:15→17:34)
[2017-10-14] MEDS: HYDROCODONE/APAP 5MG-325MG TAB PO PRN ×2 (06:33→18:12)
[2017-10-14 06:51] LABS: BASOPHILS % 0.1 % (0.0-1.0); HEMATOCRIT 27.2 % (38.2-49.6); HEMOGLOBIN 8.8 g/dL (14.0-18.0); LYMPHOCYTES # (AUTO) 0.4 (1.0-3.2); LYMPHOCYTES % 5.2 % (18.0-39.1); MEAN CORPUSCULAR HEMOGLOBIN 28.7 pg (28-32); MEAN CORPUSCULAR HGB CONC 32.4 g/dL (31-35); MEAN CORPUSCULAR VOLUME 88.6 fL (81-99); MONOCYTES # (AUTO) 0.4 (0.2-0.8); MONOCYTES % 4.7 % (4.4-11.3); NEUTROPHILS % 88.1 % (38.7-80.0); PLATELET COUNT 131 x10e3/uL (140-360); RED BLOOD COUNT 3.07 x10e6/uL (4.3-5.7); RED CELL DISTRIBUTION WIDTH 17.2 % (11.7-14.4)
[2017-10-14 07:05] LABS: INR 1.14; PROTHROMBIN TIME 15.2 seconds (11.9-14.5)
[2017-10-14 07:06] LABS: PARTIAL THROMBOPLASTIN TIME 33.7 seconds (23.8-35.5)
[2017-10-14 07:09] LABS: ANION GAP 12.3 mmol/L (8-16); CALCIUM 7.6 mg/dL (8.4-10.2); CREATININE, SERUM 3.52 mg/dL (0.72-1.25); POTASSIUM 4.3 mmol/L (3.5-5.1)
[2017-10-14 08:00] VITALS: BP 145/66
[2017-10-14] MEDS: METHYLPREDNISOLONE SOD SUCC 40 MG/ML VIAL IV SCH ×3 (08:59→21:20)
[2017-10-14] MEDS: FLUTICASONE PROPIONATE NASAL SPRAY NS SCH ×2 (08:59→20:30)
[2017-10-14] MEDS: ASPIRIN 81 MG ENTERIC COATED PO SCH (08:59)
[2017-10-14] MEDS: VENLAFAXINE HCL 37.5MG XR CAP PO SCH ×2 (08:59→20:30)
[2017-10-14] MEDS: LORATADINE 10 MG TAB PO SCH (08:59)
[2017-10-14] MEDS: FUROSEMIDE INJ 10 MG/ML 4 ML VIAL IV SCH (08:59)
[2017-10-14] MEDS: AMIODARONE HCL 200 MG TAB PO SCH ×2 (08:59→20:30)
[2017-10-14] MEDS: SUCRALFATE 1 GM TAB PO SCH ×4 (08:59→20:30)
[2017-10-14] MEDS: SENNA-S TABLET PO SCH (09:00)
[2017-10-14] MEDS: FERROUS SULFATE 325 MG TAB PO SCH ×2 (09:00→17:33)
[2017-10-14] MEDS: CLOPIDOGREL BISULFATE 75 MG TAB PO SCH (09:00)
[2017-10-14] MEDS: METOPROLOL SUCCINATE 50 MG TAB XL PO SCH ×2 (09:00→17:34)
[2017-10-14] MEDS: LOSARTAN POTASSIUM 25 MG TAB PO SCH ×2 (09:00→14:54)
[2017-10-14] MEDS: FINASTERIDE 5 MG TAB PO SCH (09:00)
[2017-10-14] MEDS ORDERED: ASPIRIN 325 MG TAB PO SCH (09:00)
[2017-10-14] MEDS: NIFEDIPINE CR 30 MG TAB PO SCH ×3 (09:00→20:30)
[2017-10-14] MEDS: INSULIN LISPRO 100 UNIT/1 ML 3ML VIAL SQ SCH ×7 (09:17→21:00)
[2017-10-14 12:00] VITALS: BP 165/72
--- NOTE | 2017-10-14 15:19 | Progress Note ---
DATE: October 14, 2017 CARDIOLOGY PROGRESS NOTE SUBJECTIVE: Patient denies chest pain or shortness of breath. OBJECTIVE VITAL SIGNS: Temperature 97.1 degrees, pulse 64, respiratory rate 18, blood pressure 145/66, oxygen saturation 99% on 4 liters nasal cannula. GENERAL: Awake, alert, in no acute distress. LUNGS: Clear to auscultation bilaterally. No wheezes or crackles. CARDIOVASCULAR: Normal rate, regular rhythm. No murmur. Normal S1 and S2. ABDOMEN: Soft, nontender. EXTREMITIES: 2+ edema bilateral lower extremities. Right groin with dressing in place with some sanguineous drainage, no hematoma or bruit. CARDIAC MEDICATIONS 1. Plavix 75 mg p.o. daily. 2. Metoprolol succinate 50 mg p.o. b.i.d. 3. Aspirin 81 mg p.o. daily. 4. Amiodarone 400 mg p.o. q.12 h. 5. Furosemide 40 mg IV daily. 6. Simvastatin 20 mg p.o. nightly. LABS: WBC 7.95, hemoglobin 8.8, hematocrit 27.2, platelets 131. Sodium 135, potassium 4.3, chloride 103, CO2 24, BUN 46, creatinine 3.52. TELEMETRY: Normal sinus rhythm. IMPRESSION 1. Peripheral arterial disease with critical limb ischemia status post left superficial femoral artery orbital atherectomy and drug-eluting balloon angioplasty. 2. Paroxysmal atrial fibrillation. 3. Left heel ulceration with osteomyelitis. 4. Left upper extremity deep vein thrombosis of the brachial vein. 5. Acute renal failure on chronic kidney disease, declared end-stage renal disease, now on hemodialysis. 6. Diabetes mellitus. 7. Hypertension. 8. Hyperlipidemia. 9. Severe anemia in the setting of Coumadin toxicity with esophagitis, gastritis, internal hemorrhoids and diverticulosis. 10. Dementia. 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 RECOMMENDATIONS: Continue current cardiac medications. Resume heparin once bleeding has stopped from the right femoral access site. Monitor hemoglobin and hematocrit closely and for signs and symptoms of bleeding. Volume management per Nephrology. Further management of left heel osteomyelitis per Podiatry. Thank you for this consult. We will continue to follow. Job#: [id number] EV
[2017-10-14] MEDS ORDERED: HYDRALAZINE HCL 20 MG/ML VIAL IV PRN (15:45)
[2017-10-14 16:00] VITALS: BP 177/76
[2017-10-14 20:00] VITALS: BP 119/71
--- NOTE | 2017-10-14 20:14 | Progress Note ---
DATE: October 14, 2017 SUBJECTIVE: The patient is resting quietly. He is complaining of pain at his sacral decubitus wound site and the left foot. He is not coughing. No dyspnea at rest. No vomiting. No diarrhea. No overt medication reaction reported. OBJECTIVE VITAL SIGNS: In the past 24 hours, maximum temperature was up to 98.4 degrees Fahrenheit. GENERAL: He is hemodynamically stable. HEENT: There is no pallor, no icterus, no oropharyngeal lesions. NECK: Supple. CHEST: Symmetric. LUNGS: Clear. HEART: Sounds are regular. There is no new murmur. ABDOMEN: Soft. Bowel sounds are present. EXTREMITIES: The left foot dressing is intact and clean. SACRUM: The sacral wound site is with clean dressing. SKIN: The petechial rash of his upper extremities has significantly resolved. His white count is 7.9. His creatinine is 1.9. There are no significant positive cultures. IMPRESSION: He is recovering from severe sepsis with multiorgan dysfunction. There is a gangrenous decubitus wound at the left heel. He also has sacral decubitus wound. He has end-stage renal disease. He is on dialysis. He has been on dialysis for renal failure. Clinically, he is much improved. PLAN: I suggest to continue same management. Monitor temperature, CBC and renal function. Continue local wound care. Job#: [id number]
[2017-10-14] MEDS: SIMVASTATIN 20 MG TAB PO SCH (20:30)
[2017-10-14] MEDS: TRAZODONE HCL 50 MG TAB PO SCH (20:30)
[2017-10-14] MEDS: ZOLPIDEM TARTRATE 5 MG TAB PO PRN (23:48)
[2017-10-15] VITALS (7 sets, daily range): BP systolic 116–182; BP diastolic 56–78
[2017-10-15] MEDS: HYDROCODONE/APAP 5MG-325MG TAB PO PRN (00:18)
[2017-10-15] MEDS: HYDROMORPHONE 2MG/ML INJ IV PRN ×7 (00:55→23:16)
[2017-10-15] MEDS: HEPARIN 25,000U/0.45% NS 250ML 1,500 UNIT in SODIUM CHLORIDE 0.9% 250ML 0 ML IV SCH (01:55)
[2017-10-15 05:14] LABS: HEMATOCRIT 26.2 % (38.2-49.6); HEMOGLOBIN 8.4 g/dL (14.0-18.0); LYMPHOCYTES # (AUTO) 0.6 (1.0-3.2); LYMPHOCYTES % 5.9 % (18.0-39.1); MEAN CORPUSCULAR HEMOGLOBIN 28.5 pg (28-32); MEAN CORPUSCULAR HGB CONC 32.1 g/dL (31-35); MEAN CORPUSCULAR VOLUME 88.8 fL (81-99); MONOCYTES # (AUTO) 0.6 (0.2-0.8); NEUTROPHILS # (AUTO) 8.3 (2.1-6.9); NEUTROPHILS % 86.2 % (38.7-80.0); PLATELET COUNT 136 x10e3/uL (140-360); RED BLOOD COUNT 2.95 x10e6/uL (4.3-5.7); RED CELL DISTRIBUTION WIDTH 17.4 % (11.7-14.4)
[2017-10-15 05:37] LABS: CALCIUM 7.4 mg/dL (8.4-10.2); CREATININE, SERUM 2.85 mg/dL (0.72-1.25)
[2017-10-15] MEDS: METRONIDAZOLE 250MG/NS 50ML 50 ML IV SCH ×3 (06:00→22:00)
[2017-10-15] MEDS: PANTOPRAZOLE 40 MG 10ML VIAL IV SCH ×2 (06:00→21:00)
--- NOTE | 2017-10-15 07:24 | Progress Note ---
DATE: October 15, 2017 The patient is fairly stable. He is in no acute distress. He is not coughing currently. No dyspnea at rest. No vomiting. No diarrhea. No adverse medication reaction reported. PHYSICAL EXAMINATION VITALS: In the past 24 hours, he had temperature up to 97.8 degrees Fahrenheit. He is hemodynamically stable. HEENT: There is no pallor. No icterus. No oropharyngeal lesions. NECK: Supple. CHEST: Symmetric. Lungs are clear. HEART: Sounds are regular. There is no new murmur. ABDOMEN: Soft. Bowel sounds are present. EXTREMITIES: His left foot dressing is intact and clean. His sacral wound is fairly stable. His white count is 9.5. His creatinine is 2.8. There are no new positive culture reports. IMPRESSION: He is afebrile. He has no leukocytosis. He is recovering from severe sepsis with multiorgan dysfunction. There is a gangrenous wound at the left heel. He has a superficial sacral decubitus wound. He is in renal failure, on dialysis. From an infectious disease point, he has a petechial rash of his upper extremities that are significantly resolved. I suggest continue current management. Continue local wound care. Job#: [id number] JOSE ARMANDO
[2017-10-15] MEDS: SUCRALFATE 1 GM TAB PO SCH ×4 (07:30→22:00)
[2017-10-15] MEDS: INSULIN LISPRO 100 UNIT/1 ML 3ML VIAL SQ SCH ×7 (07:30→22:00)
[2017-10-15] MEDS ORDERED: MIDAZOLAM HCL 2 MG/2 ML VIAL ONE ×2 (08:54→12:06)
[2017-10-15] MEDS ORDERED: LIDOCAINE HCL 2% LOCAL 20 ML VIAL ONE ×2 (08:54→12:06)
[2017-10-15] MEDS ORDERED: FENTANYL CITRATE/PF 100MCG/2 ML INJ ONE ×2 (08:54→12:05)
[2017-10-15] MEDS ORDERED: SODIUM CHLORIDE 0.9% 500ML 1,000 ML ONE ×2 (08:54→12:06)
[2017-10-15] MEDS: LOSARTAN POTASSIUM 25 MG TAB PO SCH ×2 (09:00→17:22)
[2017-10-15] MEDS: AMIODARONE HCL 200 MG TAB PO SCH ×2 (09:00→22:00)
[2017-10-15] MEDS: INSULIN DETEMIR 100 UNIT/ML PEN SQ SCH ×2 (09:00→22:00)
[2017-10-15] MEDS: ASPIRIN 81 MG ENTERIC COATED PO SCH (09:00)
[2017-10-15] MEDS: VENLAFAXINE HCL 37.5MG XR CAP PO SCH ×2 (09:00→22:00)
[2017-10-15] MEDS: FLUTICASONE PROPIONATE NASAL SPRAY NS SCH ×2 (09:00→23:17)
[2017-10-15] MEDS: FINASTERIDE 5 MG TAB PO SCH (09:00)
[2017-10-15] MEDS: NIFEDIPINE CR 30 MG TAB PO SCH ×2 (09:00→22:00)
[2017-10-15] MEDS: LORATADINE 10 MG TAB PO SCH (09:00)
[2017-10-15] MEDS: SENNA-S TABLET PO SCH (09:00)
[2017-10-15] MEDS: METOPROLOL SUCCINATE 50 MG TAB XL PO SCH ×2 (09:00→17:23)
[2017-10-15] MEDS: FERROUS SULFATE 325 MG TAB PO SCH ×2 (09:00→17:22)
[2017-10-15] MEDS: CLOPIDOGREL BISULFATE 75 MG TAB PO SCH (09:00)
[2017-10-15] MEDS: METHYLPREDNISOLONE SOD SUCC 40 MG/ML VIAL IV SCH (09:29)
[2017-10-15] MEDS: FUROSEMIDE INJ 10 MG/ML 4 ML VIAL IV SCH (09:29)
[2017-10-15] MEDS ORDERED: HEPARIN SOD (PORCINE) 1000 UNIT/ML 30ML ONE (12:07)
[2017-10-15] MEDS ORDERED: INSULIN LISPRO 100 UNIT/1 ML 3ML VIAL SQ ONE (12:20)
[2017-10-15] MEDS: EPOETIN ALFA 10000 UNIT/ML VIAL SC SCH (14:45)
--- NOTE | 2017-10-15 14:49 | Diagnostic Imaging Report ---
Tunneled Dialysis Catheter Placement October 15, 2017 Pre-Procedure Diagnosis: End-Stage Renal Disease Post-procedure Diagnosis:End-Stage Renal Disease Tannery Gummer: Grace Jimenes Engraver Ornamental Design: None Sedation: None. Heart rate and oxygen saturation were monitored in real-time. Blood pressure was measured in 5 minute increments. 1% lidocaine was used for local anesthesia. Radiation Dose: Not available at time of dictation. Fluoroscopy time: Not available at time of dictation. Estimate blood loss: <5 mL Blood administered: None Complications: None Implants/Grafts: 16 Greenlandic 23 cm cuffed tunneled dialysis catheter Specimen: None Procedure: Informed consent was obtained and the patient positioned supine in the fluoroscopy suite. A timeout was performed, followed by preliminary ultrasound of the right internal jugular vein (see findings below). The indwelling temporary right internal jugular non-tunneled dialysis catheter was removed. The right neck and chest were prepped and draped in standard fashion. Using real-time ultrasound guidance a 21 gauge vascular needle was used to access the right internal jugular vein. An image was stored in the electronic medical record. A wire was advanced across the right atrium under fluoroscopy and the needle exchanged for a peel-away sheath. A skin incision was made inferior to the clavicle and the catheter tunneled to the access site. The catheter was then deployed through the peel-away sheath and positioned with the tip at the atriocaval junction/right atrium. At the end of the procedure the catheter was flushed, packed with heparin solution, secured to the skin and a sterile dressing applied. The patient tolerated the procedure well and without immediate complication. Findings: Patent right internal jugular vein as demonstrated by normal ultrasound compressibility. Impression: Successful placement of a tunneled right internal jugular vein dialysis catheter using ultrasound and fluoroscopic guidance under moderate sedation. This report was generated with voice-recognition technology. Errors in crane crew supervisor can occur. Please interpret accordingly and contact a radiologist if there are any questions regarding the report. Signed by: Dr. Sheng Jimenes M.D. on 10/15/2017 2:45 PM
--- NOTE | 2017-10-15 15:22 | Progress Note ---
DATE: October 15, 2017 CARDIOLOGY PROGRESS NOTE SUBJECTIVE: The patient denies chest pain or shortness of breath. OBJECTIVE VITAL SIGNS: Temperature 97.1 degrees, pulse 51, respiratory rate 17, blood pressure 146/65, oxygen saturation 100% on 5 liters nasal cannula. GENERAL: Awake, alert, in no acute distress. LUNGS: Clear to auscultation bilaterally. No wheezes or crackles. CARDIOVASCULAR: Normal rate, regular rhythm. No murmur. Normal S1 and S2. ABDOMEN: Soft, nontender. EXTREMITIES: 3+ pitting edema bilateral lower extremities. CARDIAC MEDICATIONS 1. Plavix 75 mg p.o. daily. 2. Metoprolol succinate 5 mg IV q.6 h. p.r.n. 3. Aspirin 81 mg p.o. daily. 4. Nifedipine 60 mg p.o. q.12 h. 5. Furosemide 40 mg IV daily. 6. Simvastatin 20 mg p.o. nightly. 7. Losartan 25 mg p.o. daily 8. Amiodarone 40 mg p.o. q.12 h. LABS: WBC 9.59, hemoglobin 8.4, hematocrit 26.2, platelets 136,000, sodium 133, potassium 4, chloride 99, CO2 of 25, BUN 31, creatinine 2.85. TELEMETRY: Normal sinus rhythm. IMPRESSION 1. Peripheral arterial disease with critical limb ischemia status post left superficial femoral artery orbital atherectomy and drug-eluting balloon angioplasty. 2. Paroxysmal atrial fibrillation. 3. Left heel ulceration with osteomyelitis. 4. Left upper extremity deep vein thrombosis of the brachial vein. 5. Acute renal failure on chronic kidney disease, declared end-stage renal disease, now on hemodialysis. 6. Diabetes mellitus. 7. Hypertension. 8. Hyperlipidemia. 9. Severe anemia in the setting of Coumadin toxicity with esophagitis, gastritis, internal hemorrhoids and diverticulosis. 10. Dementia. 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 RECOMMENDATIONS: Continue current cardiac medications. Resume heparin post procedure. Monitor hemoglobin and hematocrit closely for signs and symptoms of bleeding. Volume management per nephrology. Further management of left heel osteomyelitis per podiatry. The patient will need bridging to therapeutic INR with Coumadin once no further procedures were planned. Thank you for this consult. We will continue to follow. Job#: [id number]
[2017-10-15 16:57] LABS: CREATININE,URINE RANDOM 41.59 mg/dL (63-166)
--- NOTE | 2017-10-15 19:18 | Diagnostic Imaging Report ---
PROCEDURE:ULTRASOUND GUIDANCE FOR VASCULAR ACCESS COMPARISON:Ultrasound access 09/30/17 for central catheter placement. INDICATIONS:Central Line Placement FINDINGS:The right internal jugular vein is noted to be patent. A soft tissue structure in the anterior wall measures 6 mm and could represent a small nonocclusive thrombus. Ultrasound guidance was utilized for access for central line placement. CONCLUSION: Patent right internal jugular vein. Successful ultrasound guidance for central line placement. Potential nonocclusive thrombus in the anterior wall of the right internal jugular vein. Dictated by: Brandt Gardner M.D. on 10/15/2017 at 19:26 Electronically approved by: Brandt Gardner M.D. on 10/15/2017 at 19:26
[2017-10-15] MEDS: TRAZODONE HCL 50 MG TAB PO SCH (22:00)
[2017-10-15] MEDS: SIMVASTATIN 20 MG TAB PO SCH (22:00)
[2017-10-15] MEDS: ZOLPIDEM TARTRATE 5 MG TAB PO PRN (22:41)
[2017-10-16] VITALS: BP 137/60
[2017-10-16] MEDS: HYDROMORPHONE 2MG/ML INJ IV PRN ×7 (01:20→20:40)
[2017-10-16] MEDS: HEPARIN 25,000U/0.45% NS 250ML 1,500 UNIT in SODIUM CHLORIDE 0.9% 250ML 0 ML IV SCH (03:00)
[2017-10-16] MEDS: ONDANSETRON HCL INJ 2 MG/ML VIAL IV PRN (04:10)
[2017-10-16 05:14] LABS: EOSINOPHILS # (AUTO) 0.1 (0.0-0.4); EOSINOPHILS % 0.5 % (0.0-6.0); HEMATOCRIT 25.3 % (38.2-49.6); HEMOGLOBIN 8.1 g/dL (14.0-18.0); LYMPHOCYTES # (AUTO) 0.9 (1.0-3.2); LYMPHOCYTES % 9.8 % (18.0-39.1); MEAN CORPUSCULAR HEMOGLOBIN 28.5 pg (28-32); MEAN CORPUSCULAR VOLUME 89.1 fL (81-99); MONOCYTES # (AUTO) 0.8 (0.2-0.8); NEUTROPHILS # (AUTO) 7.7 (2.1-6.9); NEUTROPHILS % 80.6 % (38.7-80.0); PLATELET COUNT 127 x10e3/uL (140-360); RED BLOOD COUNT 2.84 x10e6/uL (4.3-5.7); RED CELL DISTRIBUTION WIDTH 17.7 % (11.7-14.4)
[2017-10-16 05:31] LABS: ANION GAP 12.7 mmol/L (8-16); CALCIUM 7.5 mg/dL (8.4-10.2); CREATININE, SERUM 3.26 mg/dL (0.72-1.25); POTASSIUM 3.7 mmol/L (3.5-5.1); VANCOMYCIN,RANDOM 6.3 ug/mL
[2017-10-16] MEDS: PANTOPRAZOLE 40 MG 10ML VIAL IV SCH ×2 (05:32→20:40)
[2017-10-16] MEDS: METRONIDAZOLE 250MG/NS 50ML 50 ML IV SCH ×3 (05:32→21:54)
[2017-10-16] MEDS: INSULIN LISPRO 100 UNIT/1 ML 3ML VIAL SQ SCH ×7 (07:30→21:54)
[2017-10-16 08:00] VITALS: BP 144/66
[2017-10-16] MEDS: FINASTERIDE 5 MG TAB PO SCH (08:08)
[2017-10-16] MEDS: VENLAFAXINE HCL 37.5MG XR CAP PO SCH ×2 (08:09→20:40)
[2017-10-16] MEDS: FERROUS SULFATE 325 MG TAB PO SCH ×2 (08:09→20:39)
[2017-10-16] MEDS: INSULIN DETEMIR 100 UNIT/ML PEN SQ SCH ×2 (08:10→21:54)
[2017-10-16] MEDS: FUROSEMIDE INJ 10 MG/ML 4 ML VIAL IV SCH (08:10)
[2017-10-16] MEDS: AMIODARONE HCL 200 MG TAB PO SCH ×2 (08:10→20:40)
[2017-10-16] MEDS: SENNA-S TABLET PO SCH (08:10)
[2017-10-16] MEDS: METOPROLOL SUCCINATE 50 MG TAB XL PO SCH ×2 (08:10→15:33)
[2017-10-16] MEDS: FLUTICASONE PROPIONATE NASAL SPRAY NS SCH ×2 (08:11→21:08)
[2017-10-16] MEDS: ASPIRIN 81 MG ENTERIC COATED PO SCH (08:11)
[2017-10-16] MEDS: LORATADINE 10 MG TAB PO SCH (08:11)
[2017-10-16] MEDS: NIFEDIPINE CR 30 MG TAB PO SCH ×2 (08:11→20:40)
[2017-10-16] MEDS: SUCRALFATE 1 GM TAB PO SCH ×4 (08:11→20:40)
[2017-10-16] MEDS: METHYLPREDNISOLONE SOD SUCC 40 MG/ML VIAL IV SCH (08:12)
[2017-10-16] MEDS: LOSARTAN POTASSIUM 25 MG TAB PO SCH (08:12)
[2017-10-16] MEDS: CLOPIDOGREL BISULFATE 75 MG TAB PO SCH (08:12)
[2017-10-16 12:00] VITALS: BP 151/63
[2017-10-16] MEDS ORDERED: VANCOMYCIN 1GM/NS 250 ML 250 ML IV ONE (12:00)
--- NOTE | 2017-10-16 14:34 | Progress Note ---
DATE: CARDIOLOGY PROGRESS NOTE SUBJECTIVE: Endorses cough. Denies any chest pain or shortness of breath. States that he is tired. OBJECTIVE VITAL SIGNS: Temperature 96.4, pulse 66, respiratory rate 18, blood pressure 144/66, oxygen saturation 99% on 3 L nasal cannula. GENERAL: Alert and oriented times 2. Resting comfortably in bed. Does not appear to be in any acute distress. NECK: Supple. No JVD noted. LUNGS: Diminished breath sounds throughout. No wheezing, rhonchi or crackles noted on oxygen. CARDIOVASCULAR: Regular rate and rhythm. Systolic murmur 2/6 systolic murmur. Normal S1 and S2. ABDOMEN: Rounded, soft and nontender. LOWER EXTREMITIES: Three plus pitting edema of right lower extremity. Left lower extremity with no edema. Absent pedal pulses on the left. CARDIOVASCULAR MEDICATIONS 1. Plavix 75 mg p.o. daily. 2. Aspirin 81 p.o. daily. 3. Amiodarone 400 p.o. q.12 h. 4. Furosemide 40 b.i.d. daily. 5. Simvastatin 20 mg p.o. at night. 6. Metoprolol 5 mg q.6 h. p.r.n. 7. Losartan 25 mg p.o. daily. 8. Nifedipine 60 p.o. q.12 h. 9. Heparin IV drip. 10. Metoprolol 50 p.o. b.i.d. LABS: WBC 9.52, hemoglobin 8.1, hematocrit 25.3, and platelets 127,000. Sodium 133, potassium 3.3, BUN 43, creatinine 3.26, glucose 91. Calcium 7.5. PTT 95.3. Telemetry is normal sinus rhythm. IMPRESSION 1. Peripheral arterial disease with critical limb ischemia: Status post left superficial femoral artery orbital atherectomy and drug-eluting balloon angioplasty. 2. Paroxysmal atrial fibrillation. 3. Left heel ulceration with osteomyelitis. 4. Left upper extremity deep venous thrombosis of the brachial ring. 5. Acute renal failure on chronic kidney disease, now on hemodialysis. 6. Diabetes mellitus. 7. Hypertension. 8. Hyperlipidemia. 9. Severe anemia in the setting of Coumadin toxicity with esophagitis, gastritis and internal hemorrhoids, and diverticulosis. 10. Dementia. 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 RECOMMENDATIONS: Continue the current list of cardiac medications. Continue heparin drip. Monitor hemoglobin and hematocrit closely for signs of bleeding. Volume management per nephrology. Management of the left heel osteomyelitis per podiatry. Continue with wound care. Patient will need bridging to therapeutic INR with Coumadin if no further procedures are planned. Will monitor closely. DICTATED BY RHINA ROSARIO NP Job#: [id number] RI
[2017-10-16 14:37] LABS: INR 1.14; PROTHROMBIN TIME 15.2 seconds (11.9-14.5)
--- NOTE | 2017-10-16 15:56 | Progress Note ---
DATE: October 16, 2017 The patient is fairly stable. He is alert and responsive. His sensorium is clear. He has no respiratory, gastrointestinal or genitourinary complaints. He is receiving bedside physical therapy. PHYSICAL EXAMINATION VITALS: His maximum temperature in the past 24 hours was up to 98.8 degrees Fahrenheit. He is hemodynamically stable. HEENT: There is no pallor. No icterus. No oropharyngeal lesions. NECK: Supple. CHEST: Symmetric. Lungs are clear. HEART: Sounds are regular without significant murmur. ABDOMEN: Soft. Bowel sounds are present. EXTREMITIES: His left foot dressing is intact and clean. His white count is 9.5. His creatinine is 3.2. There are no new positive culture reports. IMPRESSION: He is afebrile and stable. He currently has no leukocytosis. He has been on treatment for severe sepsis with multiorgan dysfunction. There is a gangrenous wound at the left heel. The petechial rash involving his upper extremities are nearly resolved. I suggest continue current management. Continue supportive care. Job#: [id number] JOSE ARMANDO
[2017-10-16] MEDS: TRAZODONE HCL 50 MG TAB PO SCH (20:40)
[2017-10-16] MEDS: SIMVASTATIN 20 MG TAB PO SCH (20:40)
[2017-10-16 21:02] VITALS: BP 155/64
[2017-10-16] MEDS: WARFARIN SOD 2 MG TAB PO SCH (21:08)
[2017-10-17] MEDS: HYDROMORPHONE 2MG/ML INJ IV PRN ×8 (00:26→23:00)
[2017-10-17] MEDS: ZOLPIDEM TARTRATE 5 MG TAB PO PRN ×2 (00:36→22:59)
[2017-10-17 00:51] VITALS: BP 148/65
[2017-10-17 04:55] LABS: INR 1.15; PROTHROMBIN TIME 15.3 seconds (11.9-14.5)
[2017-10-17 05:45] VITALS: BP 159/68
[2017-10-17] MEDS: HEPARIN 25,000U/0.45% NS 250ML 1,500 UNIT in SODIUM CHLORIDE 0.9% 250ML 0 ML IV SCH (06:10)
[2017-10-17] MEDS: METRONIDAZOLE 250MG/NS 50ML 50 ML IV SCH ×3 (06:24→21:40)
[2017-10-17] MEDS ORDERED: SODIUM CHLORIDE 0.9% 250ML 250 ML ONE (06:31)
[2017-10-17] MEDS: PANTOPRAZOLE 40 MG 10ML VIAL IV SCH ×2 (06:38→17:25)
[2017-10-17] MEDS: INSULIN LISPRO 100 UNIT/1 ML 3ML VIAL SQ SCH ×7 (07:30→22:38)
[2017-10-17 08:05] VITALS: BP 145/65
[2017-10-17] MEDS: FINASTERIDE 5 MG TAB PO SCH (08:37)
[2017-10-17] MEDS: FUROSEMIDE INJ 10 MG/ML 4 ML VIAL IV SCH (08:37)
[2017-10-17] MEDS: FERROUS SULFATE 325 MG TAB PO SCH ×2 (08:37→16:42)
[2017-10-17] MEDS: VENLAFAXINE HCL 37.5MG XR CAP PO SCH ×2 (08:37→20:02)
[2017-10-17] MEDS: AMIODARONE HCL 200 MG TAB PO SCH ×2 (08:38→20:01)
[2017-10-17] MEDS: SUCRALFATE 1 GM TAB PO SCH ×4 (08:38→20:01)
[2017-10-17] MEDS: LORATADINE 10 MG TAB PO SCH (08:38)
[2017-10-17] MEDS: METOPROLOL SUCCINATE 50 MG TAB XL PO SCH ×2 (08:38→16:42)
[2017-10-17] MEDS: NIFEDIPINE CR 30 MG TAB PO SCH ×2 (08:38→20:02)
[2017-10-17] MEDS: FLUTICASONE PROPIONATE NASAL SPRAY NS SCH ×2 (08:38→20:01)
[2017-10-17] MEDS: SENNA-S TABLET PO SCH (08:38)
[2017-10-17] MEDS: CLOPIDOGREL BISULFATE 75 MG TAB PO SCH (08:39)
[2017-10-17] MEDS: METHYLPREDNISOLONE SOD SUCC 40 MG/ML VIAL IV SCH (08:39)
[2017-10-17] MEDS: LOSARTAN POTASSIUM 25 MG TAB PO SCH (08:39)
[2017-10-17] MEDS: ASPIRIN 81 MG ENTERIC COATED PO SCH (08:39)
[2017-10-17] MEDS: INSULIN DETEMIR 100 UNIT/ML PEN SQ SCH ×2 (08:41→20:04)
[2017-10-17 11:47] VITALS: BP 148/67
[2017-10-17 12:02] LABS: INR 1.17; PROTHROMBIN TIME 15.5 seconds (11.9-14.5)
[2017-10-17 14:37] LABS: BASOPHILS % 0.1 % (0.0-1.0); EOSINOPHILS % 0.1 % (0.0-6.0); HEMATOCRIT 27.1 % (38.2-49.6); HEMOGLOBIN 8.6 g/dL (14.0-18.0); LYMPHOCYTES # (AUTO) 0.4 (1.0-3.2); LYMPHOCYTES % 3.2 % (18.0-39.1); MEAN CORPUSCULAR HEMOGLOBIN 28.7 pg (28-32); MEAN CORPUSCULAR HGB CONC 31.7 g/dL (31-35); MEAN CORPUSCULAR VOLUME 90.3 fL (81-99); MONOCYTES # (AUTO) 0.6 (0.2-0.8); MONOCYTES % 4.9 % (4.4-11.3); NEUTROPHILS # (AUTO) 10.7 (2.1-6.9); NEUTROPHILS % 90.3 % (38.7-80.0); PLATELET COUNT 183 x10e3/uL (140-360); RED CELL DISTRIBUTION WIDTH 18.2 % (11.7-14.4)
--- NOTE | 2017-10-17 15:45 | Progress Note ---
DATE: October 17, 2017 INFECTIOUS DISEASE PROGRESS NOTE The patient is fairly stable. He is alert. His sensorium is clear. He is not coughing. No dyspnea at rest. No vomiting, no diarrhea. No adverse medication reaction reported. In the past 24 hours, maximum temperature was up to 99 degrees Fahrenheit. He is hemodynamically stable. There is no pallor, no icterus. No oropharyngeal lesions. His neck is supple. The chest is symmetric. The lungs are clear. Heart sounds are regular. There is no new murmur. The abdomen is soft. Bowel sounds are present. His left foot dressing is intact and clean. His white count is 9.5 from October 16. Creatinine 3.2. There are no new positive culture reports. IMPRESSION: He has an occasional low-grade temperature. He has been on treatment for severe sepsis with multiorgan dysfunction. He has had gangrenous decubitus wound at the heel. He probably had aspiration pneumonia which has cleared. He had diffuse petechial rash of his upper extremities that has nearly resolved. He is stable from an infectious disease point. I suggest continue current management. Continue supportive care. Job#: [id number] RODRÍGUEZ
[2017-10-17 16:00] VITALS: BP 136/61
--- NOTE | 2017-10-17 16:08 | Progress Note ---
DATE: CARDIOLOGY PROGRESS NOTE SUBJECTIVE: Patient is without any new complaints. He denies any chest pain, shortness of breath. Endorses some generalized fatigue. OBJECTIVE VITAL SIGNS: Temperature 97.9, pulse 69, respiratory rate 18, blood pressure 148/67, oxygen saturation 98% on 3 liters nasal cannula. CARDIOVASCULAR MEDICATIONS 1. Plavix 75 mg p.o. daily. 2. Aspirin 81 p.o. daily. 3. Losartan 25 p.o. daily. 4. Nifedipine 60 p.o. q.12. 5. Metoprolol 50 p.o. b.i.d. 6. Amiodarone 400 p.o. q.12. 7. Lasix 40 IV daily. 8. Heparin IV drip. 9. Warfarin 2 mg p.o. daily. 10. Simvastatin 20 mg p.o. nightly. 11. Metoprolol 5 mg q.6 h. p.r.n. LABS: PT 15.5, INR 1.17, PTT 57.5. TELEMETRY: Normal sinus rhythm. IMPRESSION 1. Peripheral arterial disease with critical limb ischemia status post left superficial femoral artery orbital atherectomy and drug-eluting balloon angioplasty. 2. Paroxysmal atrial fibrillation. 3. Left heel ulceration with osteomyelitis. 4. Left upper extremity deep vein thrombosis of the brachial vein. 5. Acute renal failure on chronic kidney disease, now on hemodialysis. 6. Diabetes mellitus. 7. Hypertension. 8. Hyperlipidemia. 9. Severe anemia in the setting of Coumadin toxicity with esophagitis, gastritis, internal hemorrhoid and diverticulosis. 10. Dementia with fluctuating mental status. 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 RECOMMENDATION: Continue with the current list of cardiac medication. Warfarin and heparin bridge. INR goal 2 to 3. Will continue to monitor closely. Management of left heel osteomyelitis per Podiatry. Continue with wound care. Maintain on telemetry. Monitor closely. Dictated by: Nena Lovelace NP Job#: [id number] EV
[2017-10-17] MEDS: WARFARIN SOD 2 MG TAB PO SCH (16:42)
[2017-10-17] MEDS: SIMVASTATIN 20 MG TAB PO SCH (20:02)
[2017-10-17] MEDS: TRAZODONE HCL 50 MG TAB PO SCH (20:02)
[2017-10-17 20:43] VITALS: BP 126/58
[2017-10-17] MEDS ORDERED: HEPARIN 25,000U/0.45% NS 250ML 250 ML ONE (23:03)
[2017-10-18] VITALS: BP 126/61
[2017-10-18] MEDS: HYDROMORPHONE 2MG/ML INJ IV PRN ×6 (03:34→21:01)
[2017-10-18 04:00] VITALS: BP 145/64
[2017-10-18] MEDS: METRONIDAZOLE 250MG/NS 50ML 50 ML IV SCH ×3 (05:33→21:01)
[2017-10-18] MEDS: PANTOPRAZOLE 40 MG 10ML VIAL IV SCH ×2 (05:34→17:55)
[2017-10-18] MEDS: HEPARIN 25,000U/0.45% NS 250ML 1,500 UNIT in SODIUM CHLORIDE 0.9% 250ML 0 ML IV SCH (05:42)
[2017-10-18] MEDS: HYDROCODONE/APAP 5MG-325MG TAB PO PRN (05:45)
[2017-10-18 06:49] LABS: EOSINOPHILS # (AUTO) 0.1 (0.0-0.4); EOSINOPHILS % 1.6 % (0.0-6.0); HEMATOCRIT 23.4 % (38.2-49.6); HEMOGLOBIN 7.4 g/dL (14.0-18.0); LYMPHOCYTES # (AUTO) 0.7 (1.0-3.2); LYMPHOCYTES % 10.7 % (18.0-39.1); MEAN CORPUSCULAR HEMOGLOBIN 28.8 pg (28-32); MEAN CORPUSCULAR HGB CONC 31.6 g/dL (31-35); MEAN CORPUSCULAR VOLUME 91.1 fL (81-99); MONOCYTES # (AUTO) 0.5 (0.2-0.8); MONOCYTES % 7.6 % (4.4-11.3); NEUTROPHILS # (AUTO) 4.9 (2.1-6.9); NEUTROPHILS % 79.1 % (38.7-80.0); PLATELET COUNT 134 x10e3/uL (140-360); RED BLOOD COUNT 2.57 x10e6/uL (4.3-5.7); RED CELL DISTRIBUTION WIDTH 18.1 % (11.7-14.4)
[2017-10-18 07:03] LABS: INR 1.11; PROTHROMBIN TIME 14.9 seconds (11.9-14.5)
[2017-10-18 07:20] LABS: ANION GAP 7.4 mmol/L (8-16); CALCIUM 7.6 mg/dL (8.4-10.2); CREATININE, SERUM 3.24 mg/dL (0.72-1.25); POTASSIUM 3.4 mmol/L (3.5-5.1)
[2017-10-18] MEDS: INSULIN LISPRO 100 UNIT/1 ML 3ML VIAL SQ SCH ×7 (07:30→20:32)
[2017-10-18 08:00] VITALS: BP 143/76
[2017-10-18] MEDS: SUCRALFATE 1 GM TAB PO SCH ×4 (08:30→20:16)
[2017-10-18] MEDS: SENNA-S TABLET PO SCH (09:00)
[2017-10-18] MEDS: METOPROLOL SUCCINATE 50 MG TAB XL PO SCH ×2 (09:00→17:00)
[2017-10-18] MEDS: METHYLPREDNISOLONE SOD SUCC 40 MG/ML VIAL IV SCH (09:24)
[2017-10-18] MEDS: LORATADINE 10 MG TAB PO SCH (09:24)
[2017-10-18] MEDS: NIFEDIPINE CR 30 MG TAB PO SCH ×2 (09:24→20:16)
[2017-10-18] MEDS: FERROUS SULFATE 325 MG TAB PO SCH ×2 (09:24→17:05)
[2017-10-18] MEDS: CLOPIDOGREL BISULFATE 75 MG TAB PO SCH (09:24)
[2017-10-18] MEDS: AMIODARONE HCL 200 MG TAB PO SCH ×2 (09:24→20:16)
[2017-10-18] MEDS: LOSARTAN POTASSIUM 25 MG TAB PO SCH (09:24)
[2017-10-18] MEDS: VENLAFAXINE HCL 37.5MG XR CAP PO SCH ×2 (09:24→20:16)
[2017-10-18] MEDS: FUROSEMIDE INJ 10 MG/ML 4 ML VIAL IV SCH (09:24)
[2017-10-18] MEDS: FLUTICASONE PROPIONATE NASAL SPRAY NS SCH ×2 (09:24→20:16)
[2017-10-18] MEDS: ASPIRIN 81 MG ENTERIC COATED PO SCH (09:24)
[2017-10-18] MEDS: INSULIN DETEMIR 100 UNIT/ML PEN SQ SCH ×2 (09:25→20:34)
[2017-10-18] MEDS: FINASTERIDE 5 MG TAB PO SCH (09:25)
[2017-10-18] MEDS ORDERED: FUROSEMIDE INJ 10 MG/ML 2 ML VIAL IV PRN (11:15)
[2017-10-18] MEDS ORDERED: POTASSIUM CHLORIDE 10 MEQ TABCR PO ONE (11:30)
[2017-10-18 12:00] VITALS: BP 143/61
[2017-10-18] MEDS ORDERED: VANCOMYCIN 1GM/NS 250 ML 250 ML IV ONE (13:45)
--- NOTE | 2017-10-18 14:03 | Progress Note ---
DATE: October 18, 2017 CARDIOLOGY PROGRESS NOTE: SUBJECTIVE: Mr. Lucas is awake and alert. Denies any complaints. OBJECTIVE VITAL SIGNS: Afebrile. Heart rate 72. Blood pressure 120/78. O2 sat is 98%. CARDIOVASCULAR: Regular rhythm. Systolic murmur. LUNGS: Clear to auscultation bilaterally. EXTREMITIES: Left leg gangrene was reviewed. ASSESSMENT: 1. Peripheral arterial disease with critical limb ischemia. 2. Paroxysmal atrial fibrillation. 3. Left upper extremity venous Doppler. PLAN: Hemoglobin is 7.5. INR is 1.1. Continue current cardiac medications. Blood pressure is well controlled. Overall prognosis is poor. Job#: [id number] EV
--- NOTE | 2017-10-18 15:03 | Progress Note ---
DATE: October 18, 2017 INFECTIOUS DISEASE PROGRESS NOTE The patient is resting in bed. He is in no acute distress. He is alert. His sensorium is clear. He is not coughing much. No dyspnea at rest. No vomiting, no diarrhea. No overt medication reaction reported. Overnight he had temperatures up to 98 degrees Fahrenheit. He is hemodynamically stable. There is no pallor, no icterus. No oropharyngeal lesions. His neck is supple. The chest is symmetric. The breath sounds are less coarse in the lung cheng. Heart sounds are regular. There is no new murmur. The abdomen is soft. Bowel sounds are present. There is no acute erythema of the extremities. White count is 6.1, creatinine 3.2. There are no new positive culture reports. IMPRESSION: He has severe anemia with hemoglobin 7.4 currently. He has been receiving treatment for sepsis with probable aspiration pneumonia as well as a gangrenous infected wound at the left heel. The diffuse petechial rash of his upper extremities has significantly resolved. He is in renal failure. I suggest continue current management. Continue supportive care. He needs vascular and podiatry or orthopedic surgery followups. Job#: [id number] RODRÍGUEZ
[2017-10-18] MEDS ORDERED: SODIUM CHLORIDE 0.9% 250ML 250 ML ONE ×2 (15:45→20:28)
[2017-10-18 16:00] VITALS: BP 158/69
[2017-10-18] MEDS ORDERED: FUROSEMIDE INJ 10 MG/ML 2 ML VIAL ONE (18:35)
[2017-10-18] MEDS: TRAZODONE HCL 50 MG TAB PO SCH (20:16)
[2017-10-18] MEDS: SIMVASTATIN 20 MG TAB PO SCH (20:16)
[2017-10-18] MEDS: ZOLPIDEM TARTRATE 5 MG TAB PO PRN (21:01)
[2017-10-18] MEDS: ONDANSETRON HCL INJ 2 MG/ML VIAL IV PRN (21:01)
[2017-10-19] MEDS: ONDANSETRON HCL INJ 2 MG/ML VIAL IV PRN (00:15)
[2017-10-19] MEDS: HYDROMORPHONE 2MG/ML INJ IV PRN ×7 (03:02→20:58)
[2017-10-19] MEDS: METRONIDAZOLE 250MG/NS 50ML 50 ML IV SCH ×3 (05:53→21:43)
[2017-10-19] MEDS: HEPARIN 25,000U/0.45% NS 250ML 1,500 UNIT in SODIUM CHLORIDE 0.9% 250ML 0 ML IV SCH (05:54)
[2017-10-19] MEDS: PANTOPRAZOLE 40 MG 10ML VIAL IV SCH ×2 (05:55→17:27)
[2017-10-19 06:25] LABS: EOSINOPHILS % 0.3 % (0.0-6.0); HEMATOCRIT 26.6 % (38.2-49.6); HEMOGLOBIN 8.7 g/dL (14.0-18.0); LYMPHOCYTES # (AUTO) 0.7 (1.0-3.2); LYMPHOCYTES % 9.9 % (18.0-39.1); MEAN CORPUSCULAR HEMOGLOBIN 29.1 pg (28-32); MEAN CORPUSCULAR HGB CONC 32.7 g/dL (31-35); MONOCYTES # (AUTO) 0.6 (0.2-0.8); MONOCYTES % 8.1 % (4.4-11.3); NEUTROPHILS # (AUTO) 5.9 (2.1-6.9); NEUTROPHILS % 80.9 % (38.7-80.0); PLATELET COUNT 168 x10e3/uL (140-360); RED BLOOD COUNT 2.99 x10e6/uL (4.3-5.7); RED CELL DISTRIBUTION WIDTH 17.2 % (11.7-14.4)
[2017-10-19 07:06] LABS: INR 1.11; PROTHROMBIN TIME 14.9 SEC (9.7-11.6)
[2017-10-19] MEDS: INSULIN LISPRO 100 UNIT/1 ML 3ML VIAL SQ SCH ×7 (07:30→20:20)
[2017-10-19 07:33] LABS: CALCIUM 7.8 mg/dL (8.4-10.2); CREATININE, SERUM 3.5 mg/dL (0.72-1.25); VANCOMYCIN,RANDOM 20.7 ug/mL
[2017-10-19 08:00] VITALS: BP 144/81
[2017-10-19] MEDS: SUCRALFATE 1 GM TAB PO SCH ×4 (08:04→20:18)
[2017-10-19] MEDS: ASPIRIN 81 MG ENTERIC COATED PO SCH (08:05)
[2017-10-19] MEDS: SENNA-S TABLET PO SCH (08:05)
[2017-10-19] MEDS: METHYLPREDNISOLONE SOD SUCC 40 MG/ML VIAL IV SCH (08:05)
[2017-10-19] MEDS: LOSARTAN POTASSIUM 25 MG TAB PO SCH (08:05)
[2017-10-19] MEDS: FERROUS SULFATE 325 MG TAB PO SCH ×2 (08:05→16:29)
[2017-10-19] MEDS: FINASTERIDE 5 MG TAB PO SCH (08:05)
[2017-10-19] MEDS: FLUTICASONE PROPIONATE NASAL SPRAY NS SCH ×2 (08:05→20:18)
[2017-10-19] MEDS: AMIODARONE HCL 200 MG TAB PO SCH ×2 (08:05→20:18)
[2017-10-19] MEDS: VENLAFAXINE HCL 37.5MG XR CAP PO SCH ×2 (08:05→20:18)
[2017-10-19] MEDS: LORATADINE 10 MG TAB PO SCH (08:05)
[2017-10-19] MEDS: FUROSEMIDE INJ 10 MG/ML 4 ML VIAL IV SCH (08:05)
[2017-10-19] MEDS: CLOPIDOGREL BISULFATE 75 MG TAB PO SCH (08:05)
[2017-10-19] MEDS: METOPROLOL SUCCINATE 50 MG TAB XL PO SCH ×2 (09:00→16:29)
[2017-10-19] MEDS: NIFEDIPINE CR 30 MG TAB PO SCH ×2 (09:00→20:18)
[2017-10-19] MEDS: INSULIN DETEMIR 100 UNIT/ML PEN SQ SCH ×2 (09:03→20:20)
--- NOTE | 2017-10-19 09:41 | Progress Note ---
DATE: October 19, 2017 TIME: 9:06 a.m. OVERNIGHT: No events. Patient states that his pain is not as well controlled as he would like. REVIEW OF SYSTEMS: Denies any dizziness or chest pain. PHYSICAL EXAMINATION VITAL SIGNS: Reviewed. GENERAL: A tired-appearing man resting in bed. HEENT: Anicteric. CARDIOVASCULAR: Normal S1 and S2. LUNGS: Moderate breath sounds. ABDOMEN: Soft and nontender. EXTREMITIES: He has no edema. Left femur dressing. SKIN: Dry. PSYCHIATRIC: Normal affect. LABS: Reviewed. MEDICATIONS: Reviewed. ASSESSMENT: A 72-year-old man with: 1. Worsening normocytic anemia. 2. Coumadin toxicity/stool occult blood positive. 3. Distal esophagitis/gastritis/internal hemorrhoids/diverticulosis. 4. Sepsis. 5. Groin fungal infection/osteomyelitis of the left foot. 6. Atrial fibrillation with rapid ventricular response/hypertension. 7. Light chain nephropathy/end-stage renal disease, on hemodialysis. 8. Ambulatory dysfunction/peripheral vascular disease. 9. Urinary tract infection/skin rash. PLAN 1. Received 1 unit of packed red blood cell yesterday. Blood count has improved. No need to give the 2nd unit. 2. Dialysis today. 3. Management of the osteomyelitis of the foot. Will continue IV antibiotics. Surgical management per surgical team. 4. Continue physical therapy. 5. Consult case management for discharge planning to LTAC. He can receive surgical management of the left foot electively, but at this point is probably appropriate to transition the patient to LTAC for continued care and management. Job#: [id number] JOSE ARMANDO
[2017-10-19] MEDS: LIDOCAINE 5% PATCH TP SCH (10:48)
--- NOTE | 2017-10-19 11:07 | Progress Note ---
DATE: October 19, 2017 The patient is requesting quietly. He is being dialyzed. He has no respiratory, gastrointestinal or genitourinary complaints. No adverse medication reaction reported. PHYSICAL EXAMINATION VITALS: In the past 24 hours, his maximum temperature was up to 98.5 degrees Fahrenheit. He is hemodynamically stable. HEENT: He has no pallor. No icterus. No oropharyngeal lesions. NECK: Supple. CHEST: Symmetric. Lungs are clear. HEART: Sounds are regular. There is no new murmur. ABDOMEN: Soft. Bowel sounds are present. EXTREMITIES: His left foot dressing is intact and clean. His white count is 7.2, hemoglobin 8.7 and platelet count 168,000. His serum creatinine is 3.5 with dialysis. There are no new positive culture reports. IMPRESSION: He is afebrile and stable. He has been recovering from severe sepsis with multiorgan dysfunction. There is a gangrenous wound at the left heel. He may have had an aspiration pneumonia. He had petechial rash of his upper extremities that has significantly resolved. He is on dialysis. I suggest continue current management. Monitor temperature, CBC and renal function. He needs vascular and podiatry surgery followup. Job#: [id number] JOSE ARMANDO
[2017-10-19 12:00] VITALS: BP 119/48
--- NOTE | 2017-10-19 13:05 | Progress Note ---
DATE: October 19, 2017 CARDIOLOGY PROGRESS NOTE SUBJECTIVE: The patient denies chest pain or shortness of breath. He is claiming his back hurts. He received 1 unit PRBC transfusion yesterday and will receive 1 unit PRBC transfusion today with hemodialysis. OBJECTIVE VITAL SIGNS: Temperature 96.6 degrees, pulse 58, respiratory rate 19, blood pressure 138/65, oxygen saturation 99% on 3 liters nasal cannula. GENERAL: Awake, alert, in no acute distress. LUNGS: Clear to auscultation bilaterally. No wheezes or crackles. CARDIOVASCULAR: Normal rate, regular rhythm. Systolic murmur 2/6. Normal S1 and S2. ABDOMEN: Soft, nontender. EXTREMITIES: 3+ pitting edema. Absent pedal pulses on the left. CARDIAC MEDICATIONS 1. Plavix 75 mg p.o. daily. 2. Aspirin 81 mg p.o. daily. 3. Amiodarone 400 mg p.o. q.12 h. 4. Simvastatin 20 mg p.o. nightly. 5. Nifedipine 60 mg p.o. q.12 h. 6. Metoprolol succinate 50 mg p.o. b.i.d. 7. Lasix 40 mg IV daily. 8. Heparin drip. LABS: WBC 7.2, hemoglobin 8.7, hematocrit 26.6, platelets 168. Sodium 133, potassium 4, chloride 102, CO2 23, BUN 39, creatinine 3.5. TELEMETRY: Normal sinus rhythm. IMPRESSION 1. Peripheral arterial disease with critical limb ischemia status post left superficial femoral artery orbital atherectomy and drug-eluting balloon angioplasty. 2. Left heel ulceration with osteomyelitis. 3. Paroxysmal atrial fibrillation. 4. Left upper extremity deep vein thrombosis of the brachial vein. 5. Acute renal failure on chronic kidney disease, declared end-stage renal disease, now on hemodialysis. 6. Diabetes mellitus. 7. Hypertension. 8. Hyperlipidemia. 9. Severe anemia in the setting of Coumadin toxicity with esophagitis, gastritis, internal hemorrhoids and diverticulosis. 10. Dementia. 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 RECOMMENDATIONS: Continue current cardiac medications. Continue heparin drip as possible procedure planned by Podiatry. Monitor hemoglobin and hematocrit closely and for signs of bleeding. Volume management per Nephrology. Patient needs bridging to therapeutic INR once no further procedures are planned. It appears he is being evaluated for LTAC placement. Thank you for this consult. We will continue to follow. Job#: [id number] EV
--- NOTE | 2017-10-19 14:02 | Operative Report ---
DATE OF PROCEDURE: October 08, 2017 REFERRING PHYSICIAN: Dr. Navarro Chan. 1. PROCEDURE PERFORMED: Esophagogastroduodenoscopy and colonoscopy. INDICATIONS FOR EGD: History of melena, guaiac-positive stools. INDICATIONS FOR COLONOSCOPY: Anemia, guaiac-positive stools. MEDICATION: Patient was done under MAC. Please see anesthesiologist's note. PROCEDURE: With patient in left lateral decubitus position, flexible fiberoptic Olympus gastroscope was introduced into the esophagus under direct visualization without any difficulty. There were some patchy erythema noted in the distal esophagus. The scope was then advanced with ease into the stomach, traversing a small sliding hiatal hernia. The mucosa overlying the antrum revealed some patchy erythema. There was a cluster of varicose veins noted in the distal body along the greater curvature. There was no active bleeding or stigmata of recent hemorrhage. The pylorus was of normal contour and shape. It was intubated with ease and the scope was advanced all the way to the 2nd portion of the duodenum. The scope was then withdrawn slowly. An approximately 1 cm submucosal lesion was noted in the proximal 2nd portion with a yellowish over hue compatible with a lipoma. No biopsies were obtained. The duodenal bulb appeared to be within normal limits. The scope was then withdrawn back into the stomach and retroflexed. The mucosa overlying the fundus and the cardia appeared to be within normal limits. The scope was then straightened out. The stomach was decompressed. The scope was subsequently withdrawn. Patient tolerated the procedure well. IMPRESSIONS 1. Distal esophagitis, mild. 2. Small sliding hiatal hernia. 3. Gastritis, mild. 4. Cluster of gastric varices in mid to distal body without active bleeding or stigmata of recent hemorrhage. 5. Lipoma proximal 2nd portion of duodenum. PLAN: Continue current therapy. Follow H and H. Patient was then turned around. After adequate lubrication of the anal canal, a flexible fiberoptic Olympus colonoscope was inserted into the rectum and advanced all the way to the proximal ascending colon. The scope could not be advanced into the cecum due to excessive looping of the scope in the proximal colon. The colon was excessively spastic and irritable and was overall suboptimally visualized. The scope was then withdrawn slowly. Whatever was visualized, the mucosa overlying the ascending and transverse appeared to be grossly within normal limits. No obvious obstructing or constricting lesions were noted. Diverticular disease was noted to involve the distal descending and the sigmoid and again no obstructing or constricting lesions were noted. The rectum grossly appeared to be within normal limits. The scope was then retroflexed into the distal rectum, and small internal hemorrhoids were noted, none of which was actively bleeding. The scope was then straightened out. The rectosigmoid area as well as the distal rectal area were decompressed. The scope subsequently withdrawn. Patient tolerated the procedure well. IMPRESSIONS 1. Colon excessively spastic and irritable, suboptimally visualized. 2. Could not advance scope to cecum secondary to excessive looping of scope proximally. 3. Diverticulosis. 4. Internal hemorrhoids, none actively bleeding. PLAN 1. Follow H and H. 2. Proceed with anticoagulation. Job#: [id number] CF cc:MD OREN WINTER MD
--- NOTE | 2017-10-19 14:10 | Progress Note ---
DATE: October 19, 2017 PODIATRY PROGRESS NOTE Patient was seen at bedside today, in no acute distress. Dressings clean, dry, intact to the left lower extremity. He denies any constitutional symptoms at this point. He recently underwent angiogram with stenting with Dr. Garcia. I spoke in detail about the procedure with Dr. Garcia, who states that he does have left perfusion to heal from the partial calicectomy with a possible flap closure. Clinically there are no changes since previous examination by Dr. Horner. There is exposure of the calcaneous. The wound is 80% necrotic with significant malodor. Drainage noted. There is no pain on palpation of the wound. Labs were reviewed. Vitals were reviewed. ASSESSMENT 1. Gangrenous changes noted to the plantar aspect of the left heel with osteomyelitis of the calcaneus. 2. Grade 4 left heel decubitus ulceration. 3. Peripheral arterial disease status post angiogram with stenting with Dr. Garcia. 4. Diabetes mellitus with peripheral neuropathy. PLAN: Continue local wound care and offloading consisting of Betadine wet-to-dry dressing. We will plan for a partial calicectomy with flap closure versus Wound VAC application to the left heel on . Patient is to remain n.p.o. after midnight morning. Podiatry will continue to follow. Thank you again for including me in the care of this patient. Job#: [id number] ORDRÍGUEZ
[2017-10-19 16:00] VITALS: BP 131/60
[2017-10-19 20:18] VITALS: BP 137/65
[2017-10-19] MEDS: TRAZODONE HCL 50 MG TAB PO SCH (20:18)
[2017-10-19] MEDS: SIMVASTATIN 20 MG TAB PO SCH (20:18)
[2017-10-19] MEDS: ACETAMINOPHEN 325 MG TAB PO PRN (20:23)
[2017-10-20] MEDS: SODIUM CHLORIDE FLUSH 10 ML SYR INJ PRN (00:25)
[2017-10-20] MEDS: HYDROMORPHONE 2MG/ML INJ IV PRN ×7 (00:25→21:04)
[2017-10-20] MEDS: PANTOPRAZOLE 40 MG 10ML VIAL IV SCH ×2 (05:49→17:10)
[2017-10-20] MEDS: HEPARIN 25,000U/0.45% NS 250ML 1,500 UNIT in SODIUM CHLORIDE 0.9% 250ML 0 ML IV SCH ×2 (06:00→11:40)
[2017-10-20 06:58] LABS: INR 1.11; PROTHROMBIN TIME 14.9 seconds (11.9-14.5)
[2017-10-20 08:00] VITALS: BP 146/65
[2017-10-20] MEDS: ASPIRIN 81 MG ENTERIC COATED PO SCH (08:17)
[2017-10-20] MEDS: SENNA-S TABLET PO SCH (08:17)
[2017-10-20] MEDS: LORATADINE 10 MG TAB PO SCH (08:17)
[2017-10-20] MEDS: LOSARTAN POTASSIUM 25 MG TAB PO SCH (08:17)
[2017-10-20] MEDS: CLOPIDOGREL BISULFATE 75 MG TAB PO SCH (08:17)
[2017-10-20] MEDS: LIDOCAINE 5% PATCH TP SCH (08:17)
[2017-10-20] MEDS: SUCRALFATE 1 GM TAB PO SCH ×4 (08:17→20:51)
[2017-10-20] MEDS: FUROSEMIDE INJ 10 MG/ML 4 ML VIAL IV SCH (08:17)
[2017-10-20] MEDS: NIFEDIPINE CR 30 MG TAB PO SCH ×2 (08:17→20:51)
[2017-10-20] MEDS: FLUTICASONE PROPIONATE NASAL SPRAY NS SCH ×2 (08:17→21:00)
[2017-10-20] MEDS: METOPROLOL SUCCINATE 50 MG TAB XL PO SCH ×2 (08:17→17:10)
[2017-10-20] MEDS: AMIODARONE HCL 200 MG TAB PO SCH ×2 (08:17→20:51)
[2017-10-20] MEDS: VENLAFAXINE HCL 37.5MG XR CAP PO SCH ×2 (08:17→20:51)
[2017-10-20] MEDS: FINASTERIDE 5 MG TAB PO SCH (08:17)
[2017-10-20] MEDS: FERROUS SULFATE 325 MG TAB PO SCH ×2 (08:17→17:07)
[2017-10-20] MEDS: METHYLPREDNISOLONE SOD SUCC 40 MG/ML VIAL IV SCH (08:17)
[2017-10-20] MEDS: INSULIN DETEMIR 100 UNIT/ML PEN SQ SCH ×2 (08:18→19:42)
[2017-10-20] MEDS: INSULIN LISPRO 100 UNIT/1 ML 3ML VIAL SQ SCH ×7 (08:18→19:42)
--- NOTE | 2017-10-20 08:58 | Progress Note ---
DATE: October 20, 2017 TIME: 8:15 a.m. OVERNIGHT: No events. REVIEW OF SYSTEMS: Denies any dizziness. PHYSICAL EXAMINATION VITAL SIGNS: Reviewed. GENERAL: A tired-appearing man resting in bed. HEENT: Anicteric. CARDIOVASCULAR: Normal S1 and S2. LUNGS: Moderate breath sounds. ABDOMEN: Soft, nontender and nondistended. EXTREMITIES: No edema. He has a left heel dressing. SKIN: Dry. PSYCHIATRIC: Flat affect. LABS: Reviewed. MEDICATIONS: Reviewed. ASSESSMENT: A 72-year-old man with: 1. Worsening normocytic anemia. 2. Coumadin toxicity/stool occult positive blood. 3. Distal esophagitis/gastritis/internal hemorrhoids/diverticulosis. 4. Sepsis/groin fungal infection/osteomyelitis of the left foot/urinary tract infection/skin rash. 5. Atrial fibrillation with rapid ventricular response/hypertension. 6. Light chain nephropathy/end-stage renal disease, on hemodialysis. 7. Ambulatory dysfunction/peripheral vascular disease. PLAN 1. Received blood transfusion. Follow up hemoglobin. 2. Dialysis per nephrology. 3. Possible surgery on the left foot tomorrow. 4. All cultures remain negative. 5. Continue Levemir insulin regimen. 6. Currently, the patient is not on any antibiotics. Defer to infectious disease. 7. Surgery is planning for a partial calicectomy with flap closure versus wound VAC application tomorrow. Will make the patient n.p.o. tonight. Job#: [id number] JOSE ARMANDO
[2017-10-20 12:00] VITALS: BP 146/66
[2017-10-20] MEDS ORDERED: VANCOMYCIN 1GM/NS 250 ML 250 ML IV ONE (13:00)
--- NOTE | 2017-10-20 13:05 | Progress Note ---
DATE: October 20, 2017 CARDIOLOGY PROGRESS NOTE SUBJECTIVE: The patient denies chest pain or shortness of breath. He reports he feels depressed due to his medical conditions. OBJECTIVE VITAL SIGNS: Temperature 97.4 degrees, pulse 56, respiratory rate 18, blood pressure 146/65, oxygen saturation 96% on 3 L nasal cannula. GENERAL: Awake, alert, in no acute distress. LUNGS: Clear to auscultation bilaterally. No wheezes or crackles. CARDIOVASCULAR: Normal rate, regular rhythm. Systolic murmur 2/6. Normal S1 and S2. ABDOMEN: Soft, nontender. EXTREMITIES: 3+ pitting edema. Absent pedal pulses. CARDIAC MEDICATIONS 1. Plavix 75 mg p.o. daily. 2. Aspirin 81 mg p.o. daily. 3. Losartan 25 mg p.o. daily. 4. Nifedipine 60 mg p.o. q.12 h. 5. Metoprolol succinate 50 mg p.o. b.i.d. 6. Amiodarone 400 mg p.o. q.12 h. 7. Furosemide 40 mg IV daily. 8. Simvastatin 20 mg p.o. nightly. LABS: INR 1.1. TELEMETRY: Normal sinus rhythm. IMPRESSION 1. Peripheral arterial disease with critical limb ischemia status post left superficial femoral artery orbital atherectomy and drug-eluting balloon angioplasty. 2. Left heel ulceration with osteomyelitis. 3. Paroxysmal atrial fibrillation. 4. Left upper extremity deep vein thrombosis of the brachial vein. 5. Acute renal failure on chronic kidney disease, declared end-stage renal disease, now on hemodialysis. 6. Diabetes mellitus. 7. Hypertension. 8. Dyslipidemia. 9. Severe anemia in the setting of Coumadin toxicity with esophagitis, gastritis, internal hemorrhoids and diverticulosis. 10. Dementia. 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 RECOMMENDATIONS: Continue current cardiac medications. Continue heparin drip as partial calcanectomy is planned by podiatry for the morning. Monitor hemoglobin and hematocrit closely and for signs of bleeding. Volume management per nephrology. He will need bridging to therapeutic INR once okay from a surgical standpoint. Thank you for this consult. We will continue to follow. Job#: [id number]
--- NOTE | 2017-10-20 14:27 | Progress Note ---
INFECTIOUS DISEASE PROGRESS NOTE The patient is resting quietly. He is in no acute distress. He is not coughing currently. No dyspnea at rest. No vomiting. No diarrhea. No other systemic complaints reported. PHYSICAL EXAMINATION VITALS: In the past 24 hours, he had temperatures up to 97.5 degrees Fahrenheit. He is stable hemodynamically. HEENT: There is no gross pallor. No obvious icterus. No oropharyngeal lesions. NECK: Supple. CHEST: Symmetric. The lungs sound fairly clear. HEART: Sounds are regular. There is no new murmur. ABDOMEN: Soft. Bowel sounds are present. EXTREMITIES: No acute erythema of the extremities. The left foot dressing is intact. His white count is 7.2, hemoglobin 8.7 from October 19, 2017, and platelet count 168. His creatinine is 3.5 from October 19, 2017. There are no new positive culture reports. IMPRESSION: He is afebrile. He has no leukocytosis. He has anemia. He has had angiography with angioplasty of the left lower extremity for peripheral arterial disease. There is a gangrenous wound at the left heel. He has been receiving treatment for severe sepsis with multiorgan dysfunction. He may have had an aspiration pneumonia. He is in renal failure, on dialysis. I suggest continue current management, monitor temperature, CBC and renal function. The patient is being considered for surgery on his left foot. Job#: [id number] MARKEL
[2017-10-20 16:00] VITALS: BP 135/63
[2017-10-20 16:07] LABS: FERRITIN 757.82 ng/mL (21.81-274.66)
--- NOTE | 2017-10-20 16:34 | Progress Note ---
DATE: October 20, 2017 PODIATRY PROGRESS NOTE Patient was seen at bedside today, in no acute distress. Dressings clean, dry, intact to the left lower foot. Clinically, there is no change since the previous examination. ASSESSMENT 1. Left heel osteomyelitis. 2. Left foot diabetic foot infection with osteomyelitis and gangrene. 3. Diabetes mellitus with peripheral neuropathy. 4. Peripheral vascular disease, status post angiogram with stenting. PLAN: Will plan for partial calcanectomy with possible flap closure versus wound VAC application to the left heel. Podiatry will continue to follow. Thank you again for including me in the care of this patient. Job#: [id number] ESHA
[2017-10-20] MEDS: EPOETIN ALFA 10000 UNIT/ML VIAL SC SCH (17:10)
[2017-10-20 20:07] VITALS: BP 146/67
[2017-10-20] MEDS: SIMVASTATIN 20 MG TAB PO SCH (20:51)
[2017-10-20] MEDS: TRAZODONE HCL 50 MG TAB PO SCH (20:51)
[2017-10-21] VITALS (7 sets, daily range): BP systolic 134–174; BP diastolic 52–73
[2017-10-21] MEDS: HYDROMORPHONE 2MG/ML INJ IV PRN ×6 (00:01→23:46)
[2017-10-21] MEDS: SODIUM CHLORIDE FLUSH 10 ML SYR INJ PRN (02:59)
[2017-10-21] MEDS: PANTOPRAZOLE 40 MG 10ML VIAL IV SCH ×2 (06:08→17:19)
[2017-10-21 06:22] LABS: EOSINOPHILS % 0.2 % (0.0-6.0); HEMATOCRIT 26.6 % (38.2-49.6); HEMOGLOBIN 8.5 g/dL (14.0-18.0); LYMPHOCYTES # (AUTO) 0.8 (1.0-3.2); LYMPHOCYTES % 12.6 % (18.0-39.1); MEAN CORPUSCULAR HEMOGLOBIN 28.6 pg (28-32); MEAN CORPUSCULAR VOLUME 89.6 fL (81-99); MONOCYTES # (AUTO) 0.6 (0.2-0.8); MONOCYTES % 8.5 % (4.4-11.3); NEUTROPHILS % 78.1 % (38.7-80.0); PLATELET COUNT 168 x10e3/uL (140-360); RED BLOOD COUNT 2.97 x10e6/uL (4.3-5.7); RED CELL DISTRIBUTION WIDTH 17.2 % (11.7-14.4)
[2017-10-21 06:38] LABS: INR 1.12
[2017-10-21 06:39] LABS: ANION GAP 12.5 mmol/L (8-16); CREATININE, SERUM 3.24 mg/dL (0.72-1.25); POTASSIUM 4.5 mmol/L (3.5-5.1)
[2017-10-21 06:40] LABS: CALCIUM 7.7 mg/dL (8.4-10.2); VANCOMYCIN,RANDOM 22.7 ug/mL
[2017-10-21] MEDS: SUCRALFATE 1 GM TAB PO SCH ×4 (07:30→20:23)
[2017-10-21] MEDS: INSULIN LISPRO 100 UNIT/1 ML 3ML VIAL SQ SCH ×7 (07:30→20:24)
--- NOTE | 2017-10-21 08:04 | Progress Note ---
DATE: October 21, 2017 TIME: 7:30 a.m. OVERNIGHT: No events. He had left ear discomfort. REVIEW OF SYSTEMS: Denies any dizziness. PHYSICAL EXAMINATION VITAL SIGNS: Reviewed. GENERAL: A tired-appearing man resting in bed. HEENT: Anicteric. CARDIOVASCULAR: Normal S1/S2. Without murmurs. ABDOMEN: Soft, nontender, nondistended. EXTREMITIES: He has left heel with the dressing. SKIN: Dry. PSYCHIATRIC: Flat affect. LABS: Reviewed. MEDICATIONS: Reviewed. ASSESSMENT: A 72-year-old man with 1. Normocytic anemia/Coumadin toxicity/stool occult positive blood/distal esophagitis/gastritis/internal hemorrhoids/diverticulosis. 2. Sepsis/groin fungal infection/osteomyelitis of the left foot/urinary tract infection/skin rash. 3. Atrial fibrillation with rapid ventricular response/hypertension. 4. Light chain nephropathy/end-stage renal disease, on hemodialysis. 5. Impacted cerumen of the left ear. PLAN 1. Debrox of the left ear for disimpaction of the cerumen. 2. Surgery for the left heel today, pending. 3. Dialysis per nephrology. 4. Monitor blood counts. 5. Continue diabetes management. 6. Hemoglobin today 8.5. Job#: [id number] CQ
[2017-10-21] MEDS: FUROSEMIDE INJ 10 MG/ML 4 ML VIAL IV SCH (08:49)
[2017-10-21] MEDS: LORATADINE 10 MG TAB PO SCH (08:49)
[2017-10-21] MEDS: AMIODARONE HCL 200 MG TAB PO SCH ×2 (08:49→20:23)
[2017-10-21] MEDS: ASPIRIN 81 MG ENTERIC COATED PO SCH (08:49)
[2017-10-21] MEDS: FLUTICASONE PROPIONATE NASAL SPRAY NS SCH ×3 (08:49→22:13)
[2017-10-21] MEDS: SENNA-S TABLET PO SCH (08:50)
[2017-10-21] MEDS: VENLAFAXINE HCL 37.5MG XR CAP PO SCH ×2 (08:50→20:23)
[2017-10-21] MEDS: METOPROLOL SUCCINATE 50 MG TAB XL PO SCH ×2 (08:50→17:19)
[2017-10-21] MEDS: LOSARTAN POTASSIUM 25 MG TAB PO SCH (08:50)
[2017-10-21] MEDS: FERROUS SULFATE 325 MG TAB PO SCH ×2 (08:50→17:19)
[2017-10-21] MEDS: NIFEDIPINE CR 30 MG TAB PO SCH ×2 (08:50→20:23)
[2017-10-21] MEDS: FINASTERIDE 5 MG TAB PO SCH (08:50)
[2017-10-21] MEDS: CLOPIDOGREL BISULFATE 75 MG TAB PO SCH (08:50)
[2017-10-21] MEDS: LIDOCAINE 5% PATCH TP SCH (08:55)
[2017-10-21] MEDS: INSULIN DETEMIR 100 UNIT/ML PEN SQ SCH ×2 (09:07→20:24)
[2017-10-21] MEDS ORDERED: BACITRACIN 50,000 UNIT VIAL ONE (10:50)
[2017-10-21 12:54] LABS: CALCIUM 7.8 mg/dL (8.4-10.2); CREATININE, SERUM 1.74 mg/dL (0.72-1.25)
[2017-10-21] MEDS ORDERED: VANCOMYCIN 1GM/NS 250 ML 250 ML ONE (13:12)
--- NOTE | 2017-10-21 13:43 | Progress Note ---
DATE: October 21, 2017 CARDIOLOGY PROGRESS NOTE SUBJECTIVE: The patient denies chest pain or shortness of breath. He is receiving hemodialysis and scheduled for partial calcanectomy of the left heel today. OBJECTIVE VITAL SIGNS: Temperature 96.8 degrees, pulse 69, respiratory rate 16, blood pressure 150/68, oxygen saturation 95% on 3 liters nasal cannula. GENERAL: Awake, alert, in no acute distress. LUNGS: Clear to auscultation bilaterally. No wheezes or crackles. CARDIOVASCULAR: Normal rate, regular rhythm. Systolic murmur 2/6. Normal S1 and S2. ABDOMEN: Soft, nontender. EXTREMITIES: 3+ pitting edema and absent pedal pulses. CARDIAC MEDICATIONS 1. Simvastatin 20 mg p.o. nightly. 2. Metoprolol tartrate 5 mg IV q.6 h. p.r.n. 3. Plavix 75 mg p.o. daily. 4. Aspirin 81 mg p.o. daily. 5. Losartan 25 mg p.o. daily. 6. Nifedipine 60 mg p.o. q.12 h. 7. Metoprolol succinate 50 mg p.o. b.i.d. 8. Furosemide 40 mg IV daily. LABS: WBC 6.45, hemoglobin 8.5, hematocrit 26.6, platelets 168. Sodium 133, potassium 4.5, chloride 100, CO2 25, BUN 45, creatinine 3.24. TELEMETRY: Normal sinus rhythm. IMPRESSION 1. Peripheral arterial disease with critical limb ischemia status post left superficial femoral artery orbital atherectomy and drug-eluting balloon angioplasty. 2. Left heel ulceration with osteomyelitis. 3. Paroxysmal atrial fibrillation. 4. Left upper extremity deep vein thrombosis of the brachial vein. 5. Acute renal failure on chronic kidney disease, declared end-stage renal disease, now on hemodialysis. 6. Diabetes mellitus. 7. Hypertension. 8. Dyslipidemia. 9. Severe anemia in the setting of Coumadin toxicity with esophagitis, gastritis, internal hemorrhoids and diverticulosis. 10. Dementia. 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 RECOMMENDATIONS: Continue current cardiac medications. Heparin drip as the patient is planned for a partial calcanectomy today. Resume once bleeding risk is acceptable from a surgical standpoint. Monitor hemoglobin and hematocrit closely. Volume management per Nephrology. He will need bridging to a therapeutic INR once no further procedures are planned. Thank you for this consult. We will continue to follow. Job#: [id number] EV
[2017-10-21] MEDS ORDERED: BUPIVACAINE HCL 0.5% INJ 30 ML VIAL INJ ONE (13:44)
[2017-10-21] MEDS ORDERED: INSULIN REGULAR, HUMAN 100 UNIT/1 ML 3ML VIAL ONE (13:57)
--- NOTE | 2017-10-21 14:01 | Progress Note ---
DATE: October 21, 2017 The patient is currently being dialyzed. He is awake and responsive. He is in no acute distress. He is not coughing. No dyspnea at rest. No vomiting. No diarrhea. No adverse medication reaction reported. PHYSICAL EXAMINATION VITALS: Maximum temperature overnight was 98.6 degrees Fahrenheit. He is hemodynamically stable. HEENT: There is no pallor. No icterus. No oropharyngeal lesions. NECK: Supple. CHEST: Symmetric. The lungs are clear. HEART: Sounds are regular. There is no new murmur. ABDOMEN: Soft. Bowel sounds are present. EXTREMITIES: His left foot dressing is intact and clean. His dialysis access site is clean. His white count is 6.4. His creatinine 3.2. There are no new positive culture reports. IMPRESSION: He has been recovering from severe sepsis with multiorgan dysfunction. He remains in renal failure on dialysis. There is a gangrenous decubitus wound at the left heel with peripheral arterial disease. He has had angiography with angioplasty. I am told by the that the patient is for surgical procedure on the left lower extremity sometime today. I suggest continue antibiotic coverage, continue supportive care. Job#: [id number] VAS
[2017-10-21] MEDS ORDERED: ROCURONIUM BROMIDE 10 MG/ML 5ML VIAL ONE (17:51)
[2017-10-21] MEDS ORDERED: LIDOCAINE HCL 2% LOCAL INJ 5 ML SDV VIAL INJ ONE (17:51)
[2017-10-21] MEDS ORDERED: DESFLURANE 240 ML BTL INH ONE (17:51)
[2017-10-21] MEDS ORDERED: ONDANSETRON HCL INJ 2 MG/ML VIAL ONE (17:51)
[2017-10-21] MEDS ORDERED: PROPOFOL IV EMULSION 10 MG/ML 20 ML VIAL ONE (17:51)
[2017-10-21] MEDS ORDERED: FENTANYL CITRATE/PF 100MCG/2 ML INJ ONE (19:12)
[2017-10-21] MEDS: SIMVASTATIN 20 MG TAB PO SCH (20:23)
[2017-10-21] MEDS: ACETAMINOPHEN 325 MG TAB PO PRN (20:26)
[2017-10-21] MEDS: TRAZODONE HCL 50 MG TAB PO SCH (21:00)
[2017-10-22 01:14] VITALS: BP 173/68
[2017-10-22] MEDS: HYDROMORPHONE 2MG/ML INJ IV PRN ×6 (02:30→21:19)
[2017-10-22] MEDS: PANTOPRAZOLE 40 MG 10ML VIAL IV SCH ×2 (05:51→17:34)
[2017-10-22 06:02] LABS: BASOPHILS % 0.2 % (0.0-1.0); EOSINOPHILS % 0.3 % (0.0-6.0); HEMATOCRIT 24.8 % (38.2-49.6); LYMPHOCYTES # (AUTO) 0.9 (1.0-3.2); LYMPHOCYTES % 14.4 % (18.0-39.1); MEAN CORPUSCULAR HEMOGLOBIN 28.4 pg (28-32); MEAN CORPUSCULAR HGB CONC 31.5 g/dL (31-35); MEAN CORPUSCULAR VOLUME 90.2 fL (81-99); MONOCYTES # (AUTO) 0.5 (0.2-0.8); MONOCYTES % 7.7 % (4.4-11.3); NEUTROPHILS # (AUTO) 4.8 (2.1-6.9); NEUTROPHILS % 76.6 % (38.7-80.0); PLATELET COUNT 143 x10e3/uL (140-360); RED BLOOD COUNT 2.75 x10e6/uL (4.3-5.7); RED CELL DISTRIBUTION WIDTH 17.6 % (11.7-14.4)
[2017-10-22 06:10] VITALS: BP 159/64
[2017-10-22 06:14] LABS: HEMOGLOBIN 7.8 g/dL (14.0-18.0); INR 1.24; PROTHROMBIN TIME 16.2 seconds (11.9-14.5)
[2017-10-22 06:24] LABS: ANION GAP 12.3 mmol/L (8-16); CALCIUM 7.5 mg/dL (8.4-10.2); CREATININE, SERUM 2.63 mg/dL (0.72-1.25); POTASSIUM 4.3 mmol/L (3.5-5.1)
[2017-10-22] MEDS: INSULIN LISPRO 100 UNIT/1 ML 3ML VIAL SQ SCH ×7 (07:30→21:00)
[2017-10-22] MEDS: SUCRALFATE 1 GM TAB PO SCH ×3 (07:30→16:30)
[2017-10-22 07:55] VITALS: BP 159/62
--- NOTE | 2017-10-22 08:02 | Progress Note ---
DATE: October 22, 2017 TIME: 6:40 a.m. OVERNIGHT: Patient underwent surgical management of the left heel. Pain is about 8/10. REVIEW OF SYSTEMS: Denies any dizziness. PHYSICAL EXAM VITAL SIGNS: Reviewed. T-max is 102. GENERAL: A tired-appearing man resting in bed. HEENT: Anicteric. CARDIOVASCULAR: Normal S1 and S2. LUNGS: Moderate breath sounds. ABDOMEN: Soft, nontender and nondistended. EXTREMITIES: He has a left heel with dressing in place with drain in place. SKIN: Dry. PSYCHIATRIC: Normal affect. LABS: Reviewed. MEDICATIONS: Reviewed. ASSESSMENT: A 72-year-old man with: 1. Osteomyelitis of the left heel: Status post resection/sepsis/groin fungal infection/urinary tract infection. 2. Normocytic anemia/Coumadin toxicity/stool occult positive blood/distal esophagitis/gastritis/internal hemorrhoids/diverticulosis. 3. Atrial fibrillation with rapid ventricular response/hypertension. 4. Light chain nephropathy/end-stage renal disease, on hemodialysis. 5. Impacted cerumen of the left ear. PLAN 1. Patient had fever last night. Will treat him with antibiotics and follow up cultures. Follow up cultures of the bone if obtained. 2. Physical therapy consultation and LTAC evaluation. 3. Continue dialysis per nephrology. 4. Start Coumadin this evening and use heparin subcutaneously only to reduce the risk of bleeding. 5. H and H has fallen to 7.8 today. Plan to give 2 units of packed red blood cells. 6. Will discuss with Dr. Escoto regarding antimicrobial coverage. 7. LTAC evaluation. Job#: [id number] JOSE ARMANDO
[2017-10-22] MEDS: METOPROLOL SUCCINATE 50 MG TAB XL PO SCH ×2 (09:00→17:00)
[2017-10-22] MEDS: NIFEDIPINE CR 30 MG TAB PO SCH (09:00)
[2017-10-22] MEDS: ASPIRIN 81 MG ENTERIC COATED PO SCH (09:00)
[2017-10-22] MEDS: FUROSEMIDE INJ 10 MG/ML 4 ML VIAL IV SCH (09:00)
[2017-10-22] MEDS ORDERED: WARFARIN SOD 5 MG TAB PO SCH ×2 (09:00→17:00)
[2017-10-22] MEDS: FERROUS SULFATE 325 MG TAB PO SCH ×2 (09:00→17:00)
[2017-10-22] MEDS: INSULIN DETEMIR 100 UNIT/ML PEN SQ SCH (09:00)
[2017-10-22] MEDS: FLUTICASONE PROPIONATE NASAL SPRAY NS SCH (09:00)
[2017-10-22] MEDS: LIDOCAINE 5% PATCH TP SCH (09:00)
[2017-10-22] MEDS ORDERED: MEROPENEM 1 GM VIAL IV SCH (09:00)
[2017-10-22] MEDS: LOSARTAN POTASSIUM 25 MG TAB PO SCH (09:00)
[2017-10-22] MEDS: FINASTERIDE 5 MG TAB PO SCH (09:00)
[2017-10-22] MEDS: VENLAFAXINE HCL 37.5MG XR CAP PO SCH (09:00)
[2017-10-22] MEDS: LORATADINE 10 MG TAB PO SCH (09:00)
[2017-10-22] MEDS ORDERED: HEPARIN SOD (PORCINE) 5,000 UNIT/ML VIAL SC SCH (09:00)
[2017-10-22] MEDS: SENNA-S TABLET PO SCH (09:00)
[2017-10-22] MEDS: AMIODARONE HCL 200 MG TAB PO SCH (09:00)
[2017-10-22] MEDS: CLOPIDOGREL BISULFATE 75 MG TAB PO SCH (09:00)
--- NOTE | 2017-10-22 09:09 | Progress Note ---
DATE: October 22, 2017 Patient is requesting quietly. He is in no distress. He is not coughing. No dyspnea at rest. No vomiting. No diarrhea. No other systemic complaints reported. PHYSICAL EXAMINATION VITALS: In the past 24 hours, he spiked temperature up to 102 degrees Fahrenheit. His temperature currently is 98 degrees. He is hemodynamically stable. HEENT: There is no gross pallor. No obvious icterus. No oropharyngeal lesions. NECK: Supple. CHEST: Symmetric. Lungs are clear. HEART: Sounds are regular. There is no new murmur. ABDOMEN: Soft. Bowel sounds are present. EXTREMITIES: His left foot dressing is intact and clean. He had a left partial calcanectomy yesterday. His white count is 6.2, hemoglobin dropped to 7.8 and platelet count is 143,000. His creatinine is 2.6. There is a wound culture from October 21, 2017, that is being processed. IMPRESSION: He spiked temperature overnight. Whether this is reactive to the left partial calcanectomy is unclear. He has been recovering from severe sepsis with multiorgan dysfunction associated with a gangrenous wound at the left heel for which he had surgery mentioned above yesterday. It seems his gram-negative coverage dropped off the DEC. I suggest we continue coverage with vancomycin and Merrem. I discussed the patient with the pharmacy. We should check blood and urine cultures. If there is diarrhea, check his stool for Clostridium difficile in light of the fever spike overnight. Monitor temperature, CBC and renal function. Continue local wound care. I have discussed the patient with Dr. Navarro Chan. Job#: [id number] JOSE ARMANDO
[2017-10-22 09:16] LABS: LYMPHOCYTES % (MANUAL) 15 % (19-48); MONOCYTES % (MANUAL) 9 % (3.4-9.0); MYELOCYTES % (MANUAL) 1 % (0-0); NEUTROPHILS % (MANUAL) 70 % (40-74); PLATELET ESTIMATE ADEQUATE; PLATELET MORPHOLOGY COMMENT NORMAL; RBC MORPHOLOGY COMMENT NORMAL
[2017-10-22 09:29] LABS: HEMATOCRIT 26.3 % (38.2-49.6); HEMOGLOBIN 8.2 g/dL (14.0-18.0)
--- NOTE | 2017-10-22 13:53 | Progress Note ---
DATE: October 22, 2017 PODIATRY PROGRESS NOTE Patient was seen at bedside today, in no acute distress. Dressings clean, dry, intact to the left foot. The Wound VAC was in place. He denies any nausea, fever, chills, vomiting, or any overnight constitutional symptoms. He states he is doing quite well clinically. ASSESSMENT: Status post 1 day left heel partial calcanectomy with debridement of wound down to bone. PLAN: From podiatry standpoint, patient is okay to be discharged to [facility] on IV antibiotics per Infectious Disease. Wound care orders were given to nursing consisting of VAC change every other day. Podiatry will continue to follow. Please consult me at [facility] for continuum of care. Thank you again for including me in the care of this patient. Job#: [id number] RODRÍGUEZ
--- NOTE | 2017-10-22 16:43 | Operative Report ---
DATE OF PROCEDURE: October 21, 2017 PREOPERATIVE DIAGNOSIS 1. Left calcaneal osteomyelitis. 2. Left diabetic foot ulceration grade 4 with infection and gangrene. POSTOPERATIVE DIAGNOSIS 1. Left calcaneal osteomyelitis. 1. Left diabetic foot ulceration grade 4 with infection and gangrene. PROCEDURE PERFORMED 1. Left partial calcanectomy left heel. 2. Left foot debridement of ulceration down to the level of bone. 3. Left tibial nerve block. SOLE CONDITIONER: None. HEMOSTASIS: None. ANESTHESIA: General. INJECTABLES: 10 mL of 0.5% Marcaine plain. ESTIMATED BLOOD LOSS: Less than 20 mL. PROCEDURE: After informed consent was obtained, the patient was brought into the operating room and placed on the operating table in the supine position. General anesthesia was obtained. Patient was then transferred into prone position. Next, the left lower extremity was then scrubbed, prepped and draped in the usual aseptic manner. Attention was directed to the left posterior heel where the large diabetic ulceration was visualized. Next, the ulceration was debrided of all necrotic nonviable tissue down to the level of bone. Deep wound cultures at this time were performed. Next, a partial calcanectomy was performed. All infected bone was resected and removed from the surgical site at this point down to the level of healthy bleeding bone. Next, the wound was irrigated with pulse lavage consisting of 3 liters of normal sterile saline with Bacitracin. Next, the left foot was then placed in a Wound VAC. The Wound VAC leak pressure was checked, which was adequate. Next, the left foot was then placed in a dry sterile dressing consisting of Kerlix and an Murphy wrap. The patient tolerated the procedure and anesthesia well. The patient was transferred back to the recovery room with vital signs stable and neurovascular status intact to preop status. Job#: [id number] EV
[2017-10-22] MEDS: EPOETIN ALFA 10000 UNIT/ML VIAL SC SCH (17:00)
--- NOTE | 2017-10-22 18:15 | Discharge Summary ---
NO DICTATION. 3 seconds. CONCEPCION CASTILLO DPM Job#: [id number] GH
--- NOTE | 2017-10-22 19:11 | Progress Note ---
DATE: October 22, 2017 CARDIOLOGY PROGRESS NOTE SUBJECTIVE: The patient denies chest pain or shortness of breath. He reports he feels poorly and his foot hurts. OBJECTIVE VITAL SIGNS: Temperature 98 degrees, pulse 72, respiratory rate 16, blood pressure 159/62, oxygen saturation 96% on 3 liters nasal cannula. GENERAL: Awake, alert, in no acute distress. LUNGS: Clear to auscultation bilaterally. No wheezes or crackles. CARDIOVASCULAR: Normal rate, regular rhythm. Systolic murmur 2/6. Normal S1 and S2. ABDOMEN: Soft, nontender. EXTREMITIES: 3+ pitting edema and absent pedal pulses. Left foot with dressing intact. CARDIAC MEDICATIONS 1. Warfarin 5 mg p.o. daily. 2. Metoprolol succinate 50 mg p.o. b.i.d. 3. Plavix 75 mg p.o. daily. 4. Aspirin 81 mg p.o. daily. 5. Losartan 25 mg p.o. daily. 6. Nifedipine XL 50 mg p.o. q.12 h. 7. Amiodarone 400 mg p.o. q.12 h. 8. Furosemide 40 mg IV daily. LABS: WBC 6.2, hemoglobin 7.5, hematocrit 24.8, platelets 143, sodium 140, potassium 4.3, chloride 105, CO2 of 27, BUN 26, creatinine 2.63, INR 1.24. TELEMETRY: Normal sinus rhythm. IMPRESSION 1. Peripheral arterial disease with critical limb ischemia status post left superficial femoral artery orbital atherectomy and drug-eluting balloon angioplasty. 2. Left heel ulceration with osteomyelitis, status post partial calcanectomy. 3. Paroxysmal atrial fibrillation. 4. Left upper extremity brachial vein deep vein thrombosis. 5. Acute renal failure on chronic kidney disease, declared end-stage renal disease, now on hemodialysis. 6. Diabetes mellitus. 7. Hypertension. 8. Dyslipidemia. 9. Severe anemia in the setting of Coumadin toxicity with esophagitis, gastritis, internal hemorrhoids and diverticulosis. 10. Dementia. 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 RECOMMENDATIONS: Continue current cardiac medications. The patient has been started on warfarin. Monitor INR closely as he is also on amiodarone, which can cause the patient's INR to be elevated. Heparin drip has not been resumed as of yet. Plan to resume once bleeding risk is acceptable from a surgical standpoint. Monitor hemoglobin and hematocrit closely. Volume management per nephrology. Thank you for this consult. We will continue to follow. Job#: [id number] GINA
[2017-10-22 20:00] VITALS: BP 148/61
[2017-10-23] MEDS ORDERED: MEROPENEM 500 MG VIAL IV SCH (09:00)
--- NOTE | 2017-10-23 12:14 | Discharge Summary ---
PRINCIPAL DIAGNOSES 1. Cellulitis to the left heel, status post partial resection. 2. Sepsis. 3. Groin fungal infection. 4. Urinary tract infection. 5. Normocytic anemia. 6. Coumadin toxicity. 7. Stool occult positive blood. 8. Distal esophagitis. 9. Gastritis. 10. Internal hemorrhoids. 11. Diverticulosis. 12. Atrial fibrillation with rapid ventricular response. 13. End-stage renal disease, started on hemodialysis. 14. Impacted cerumen in the left ear. 15. Severe hypoglycemia. SECONDARY DIAGNOSIS: Diabetes mellitus type 2. CHIEF COMPLAINT: Unresponsiveness. HISTORY OF PRESENT ILLNESS: This 72-year-old man admitted with unresponsiveness. Please refer to the H and P for further details. HOSPITAL COURSE: The patient was admitted with unresponsiveness. He was found to have severe hypoglycemia. Glucose was 20. He also had Coumadin toxicity. He received vitamin K, fresh frozen plasma. He also had severe anemia requiring blood transfusions. He was found to have gastritis, esophagitis, internal hemorrhoids, diverticulosis. He had to be started on dialysis for his worsening renal function. He had left heel osteomyelitis and underwent partial resection. Positive for gram-negative rods and Staph aureus. still pending. He is now being transitioned to LTAC facility for further care. DISCHARGE MEDICATIONS: Per electronic medical record. FOLLOWUP INSTRUCTIONS: Follow up with medical team at LTAC facility. CONDITION ON DISCHARGE: Stable and improving. MAYLIN EID MD Job#: [id number]
[2017-10-23] MEDS ORDERED: VANCOMYCIN 750MG/NS 150ML IVPB 150 ML IV SCH (16:00)
--- NOTE | 2017-10-25 14:23 | Diagnostic Imaging Report ---
PROCEDURE:NON-TUNNELLED CVC CATH PLACMNT COMPARISON:None. INDICATIONS: Need for central venous access. COMPLICATIONS: None. MEDICATIONS: None. BLOOD LOSS: None. PROCEDURE: The right neck was prepped and draped in usual sterile fashion. 1% lidocaine was infused into the subcutaneous tissues for local anesthesia. Utilizing direct sonographic guidance, a 21 gauge needle was advanced into the right internal jugular vein. A 0.018 inch wire was advanced centrally. An access sheath was placed over the wire to secure the vascular access. The wire was upsized to a 0.035 inch wire. Serial dilation was performed over the wire. A temporary triple lumen catheter was advanced over the wire. The wire was removed. The catheter tip was positioned within the right atrium. The catheter demonstrated proper function with aspiration and flushing of sterile saline. The catheter lumens were flushed with sterile saline. The catheter was secured to the skin with 3-0 Ethilon suture. Sterile dressing was applied. No immediate complications. The patient tolerated the procedure well. The patient's transfer to the post procedure area in stable unchanged condition for further monitoring. CONCLUSION: Successful placement of a right internal jugular temporary central venous catheter utilizing ultrasound and fluoroscopic guidance. Dictated by: Dustin Melton M.D. on 10/25/2017 at 14:31 Electronically approved by: Dustin Melton M.D. on 10/25/2017 at 14:31
== END 2017-10-22 21:38 | DRG 853 ==
LOC: ER 21:24 → ERHOLD 09-29 00:50 → ICU 09-29 01:32 → MED/SURG2 10-03 22:15
PROVIDERS: ADMIT Internal Medicine; ATTEND Internal Medicine
PROC: 30230N1 Transfusion of Nonautologous Red Blood Cells into Peripheral Vein, Open Approach (ICD-10-PCS; principal; 2017-09-28)
PROC: 30233K1 Transfusion of Nonautologous Frozen Plasma into Peripheral Vein, Percutaneous Approach (ICD-10-PCS; 2017-09-28)
PROC: 02HV33Z Insertion of Infusion Device into Superior Vena Cava, Percutaneous Approach (ICD-10-PCS; 2017-09-30)
PROC: 5A1D70Z Performance of Urinary Filtration, Intermittent, Less than 6 Hours Per Day (ICD-10-PCS; 2017-10-01)
PROC: 0DJD8ZZ Inspection of Lower Intestinal Tract, Via Natural or Artificial Opening Endoscopic (ICD-10-PCS; 2017-10-08)
PROC: 0DJ08ZZ Inspection of Upper Intestinal Tract, Via Natural or Artificial Opening Endoscopic (ICD-10-PCS; 2017-10-08)
PROC: 02H633Z Insertion of Infusion Device into Right Atrium, Percutaneous Approach (ICD-10-PCS; 2017-10-13)
PROC: 04CL3ZZ Extirpation of Matter from Left Femoral Artery, Percutaneous Approach (ICD-10-PCS; 2017-10-13)
PROC: B41D1ZZ Fluoroscopy of Aorta and Bilateral Lower Extremity Arteries using Low Osmolar Contrast (ICD-10-PCS; 2017-10-13)
PROC: 047L3ZZ Dilation of Left Femoral Artery, Percutaneous Approach (ICD-10-PCS; 2017-10-13)
PROC: 02HV33Z Insertion of Infusion Device into Superior Vena Cava, Percutaneous Approach (ICD-10-PCS; 2017-10-15)
PROC: 0QBM0ZZ Excision of Left Tarsal, Open Approach (ICD-10-PCS; 2017-10-21)
DX: A41.9 Sepsis, unspecified organism (principal); G93.41 Metabolic encephalopathy; D68.9 Coagulation defect, unspecified; E11.52 Type 2 diabetes mellitus with diabetic peripheral angiopathy with gangrene; E11.22 Type 2 diabetes mellitus with diabetic chronic kidney disease; E87.2 Acidosis; I82.622 Acute embolism and thrombosis of deep veins of left upper extremity; I12.0 Hypertensive chronic kidney disease with stage 5 chronic kidney disease or end stage renal disease; D62 Acute posthemorrhagic anemia; N18.6 End stage renal disease; I85.00 Esophageal varices without bleeding; M86.9 Osteomyelitis, unspecified; L97.424 Non-pressure chronic ulcer of left heel and midfoot with necrosis of bone; N39.0 Urinary tract infection, site not specified; F03.90 Unspecified dementia, unspecified severity, without behavioral disturbance, psychotic disturbance, mood disturbance, and anxiety; I48.0 Paroxysmal atrial fibrillation; E11.65 Type 2 diabetes mellitus with hyperglycemia; J44.9 Chronic obstructive pulmonary disease, unspecified; E11.69 Type 2 diabetes mellitus with other specified complication; Z99.2 Dependence on renal dialysis; Z79.4 Long term (current) use of insulin; B35.6 Tinea cruris; K20.9 Esophagitis, unspecified; T45.515A Adverse effect of anticoagulants, initial encounter; K29.70 Gastritis, unspecified, without bleeding; K57.90 Diverticulosis of intestine, part unspecified, without perforation or abscess without bleeding; K64.8 Other hemorrhoids; Z86.718 Personal history of other venous thrombosis and embolism; D13.2 Benign neoplasm of duodenum; H61.22 Impacted cerumen, left ear; N05.8 Unspecified nephritic syndrome with other morphologic changes; R65.20 Severe sepsis without septic shock; R79.1 Abnormal coagulation profile; B95.62 Methicillin resistant Staphylococcus aureus infection as the cause of diseases classified elsewhere; T68.XXXA Hypothermia, initial encounter
CPT/HCPCS: 36140; 36415; 36430; 36556; 36565; 45378; 71010; 74470; 75630; 76770; 76937; 77001; 80048; 80053; 80061; 80202; 81001; 81003; 81015; 82270; 82550; 82553; 82570; 82575; 82607; 82728; 82746; 82947; 82948; 83036; 83540; 83690; 83735; 84100; 84156; 84165; 84300; 84439; 84443; 84466; 84484; 85007; 85014; 85018; 85025; 85027; 85045; 85610; 85730; 86021; 86160; 86704; 86706; 86850; 86900; 86920; 87040; 87045; 87071; 87075; 87086; 87186; 87205; 87493; 88305; 88311; 90962; 92924; 93005; 93306; 93925; 93930; 93970; 96365; 96367; 96372; 97139; 99285; C1751; C1769; J0360; J1160; J1170; J1450; J1610; J1644; J1940; J2001; J2150; J2185; J2250; J2270; J2405; J2543; J2920; J3370; J3430; J7030; J7040; J7050; J7799; P9016; P9017; Q4081; Q9967